=== PATIENT | male | born 1955 | race Caucasian/White ===

== ENCOUNTER 2017-09-10 16:24 | Emergency (ER) | payer MEDICARE ==
[2017-09-10] MEDS ORDERED: LORazepam INJ* 2 MG/ML 1 ML VIAL IV ONE (17:00)
[2017-09-10] MEDS ORDERED: NS 0.9% 1000 ML* 1,000 ML IV ONE (17:00)
[2017-09-10 17:41] LABS: ABS Basophils 0.1 10^3/ul (0-0.2); ABS Eosinophils 0.2 10^3/ul (0-0.6); ABS Lymphocytes 1.8 10^3/ul (1.0-4.8); ABS Monocytes 0.7 10^3/ul (0-0.8); ABS Neutrophils 4.8 10^3/ul (1.5-7.7); ABS Nucleated RBC 0 10^3/ul; Eosinophil % 2.9 % (0-6); Hematocrit 40 % (42-52); Hemoglobin 14.4 g/dl (14.0-18.0); Lymphocyte % 24.2 % (25-47); Mean Corpuscular HGB Conc 36 g/dl (31-36); Mean Corpuscular Hemoglobin 32 pg (27-31); Mean Corpuscular Volume 90 fL (80-94); Mean Platelet Volume 7.6 um3 (7.4-10.4); Nucleated Red Blood Cells % 0; Platelet Count 282 10^3/ul (150-450); Red Blood Count 4.47 10^6/ul (4.0-5.4); Red Cell Distribution Width 14 % (10.5-15); White Blood Count 7.6 10^3/ul (3.5-10.8)
[2017-09-10 17:57] LABS: EGFR Non-African American 72.8 (>60)
--- NOTE | 2017-09-10 19:03 | ED ---
Bassam Graham Jennifer, scribed for Fili Zhu MD on 09/10/17 at 1702 . Psychiatric Complaint - HPI Summary HPI Summary: The patient is a 61 year old male who was sent from PCP for having a panic attack today. The patient is shaking and has difficulty speaking. LEVEL 5 CAVEAT: HPI limited due to difficulty speaking - History Of Current Complaint Chief Complaint: EDPsychosocial Time Seen by Provider: 09/10/17 16:52 Hx Obtained From: Patient Onset/Duration: Sudden Onset Timing: Constant - Allergies/Home Medications Allergies/Adverse Reactions: Allergies Allergy/AdvReac Type Severity Reaction Status Date / Time wool Allergy Rash And Verified 09/10/17 18:15 Itching Home Medications: Home Medications Baclofen TAB* [Lioresal TAB*] 10 mg PO TID 09/10/17 [History Confirmed 09/10/17] Cholecalciferol TAB* [Vitamin D TAB*] 2,000 units PO DAILY 09/10/17 [History Confirmed 09/10/17] Cyclobenzaprine TAB* [Flexeril 10 MG TAB*] 5 mg PO QAM 09/10/17 [History Confirmed 09/10/17] Cyclobenzaprine TAB* [Flexeril 10 MG TAB*] 10 mg PO QPM 09/10/17 [History Confirmed 09/10/17] Escitalopram (NF) [Lexapro 10 mg (NF)] 10 mg PO DAILY 09/10/17 [History Confirmed 09/10/17] Fluocinonide 0.05% CREAM(NF) 1 applic TOPICAL TID 09/10/17 [History Confirmed ] Gabapentin CAP(*) [Neurontin 300 CAP(*)] 300 mg PO TID 09/10/17 [History Confirmed 09/10/17] Gemfibrozil TAB* [Lopid TAB*] 600 mg PO BID 09/10/17 [History Confirmed ] Hydrocortisone [Cortaid] 1 % TOPICAL BID 09/10/17 [History Confirmed 09/10/17] Ipratropium [place] [Ipratropium [place]] 0.03 % NA BID 09/10/17 [History Confirmed 09/10/17] Ketorolac 0.5% OPHTH (NF) 1 drop BOTH EYES DAILY 09/10/17 [History Confirmed ] Lidocaine 5% OINT* 1 applic TOPICAL ONCE 09/10/17 [History Confirmed 09/10/17] Liraglutide (NF) [Victoza (NF)] 1.2 mg SUBCUT DAILY 09/10/17 [History Confirmed 09/10/17] Lisinopril/HCTZ 10.5(NF) [Zestoretic 03/05.5(NF)] 1 tab PO DAILY 09/10/17 [ History Confirmed 09/10/17] Omeprazole CAP* [Prilosec CAP* 20 MG] 20 mg PO BID 09/10/17 [History Confirmed 09/10/17] amLODIPine TAB* [Norvasc 5 mg TAB*] 5 mg PO DAILY 09/10/17 [History Confirmed ] metFORMIN* [Glucophage 1000 MG TAB *] 1,000 mg PO BID 09/10/17 [History Confirmed 09/10/17] tiZANidine TAB* [Zanaflex TAB*] 2 mg PO BID 09/10/17 [History Confirmed 09/10/17 ] PMH/Surg Hx/FS Hx/Imm Hx Endocrine/Hematology History: Reports: Hx Diabetes Denies: Hx Anticoagulant Therapy Cardiovascular History: Reports: Hx Hypertension Denies: Hx Pacemaker/ICD GI History: Reports: Hx Gastroesophageal Reflux Disease History: Denies: Hx Renal Disease Musculoskeletal History: Reports: Hx Arthritis, Hx Back Problems, Other Musculoskeletal History - ARTHRITIS, back surgery Sensory History: Denies: Hx Hearing Aid Neurological History: Reports: Other Neuro Impairments/Disorders - PAIN CLINIC PATIENT Psychiatric History: Reports: Hx Anxiety, Hx Depression, Hx Post Traumatic Stress Disorder Denies: Hx Eating Disorder, Hx Panic Disorder - Surgical History Surgery Procedure, Year, and Place: BONE FRAGMENT REMOVED 2000-LUMBAR; APPENDECTOMY 1984; Infectious Disease History: No Infectious Disease History: Denies: Traveled Outside the [place] in Last 30 Days - Family History Known Family History: Positive: Other - etoh abuse (father) - Social History Alcohol Use: None Alcohol Amount: sober x6 years Substance Use Type: Reports: None Smoking Status (MU): Never Smoked Tobacco Type: Cigarettes Have You Smoked in the Last Year: No Review of Systems Positive: Anxious, Other - generalized shaking All Other Systems Reviewed And Are Negative: No - Comments Additional Review of Systems Comments: LEVEL 5 CAVEAT: ROS limited due to difficulty speaking Physical Exam - Summary Physical Exam Summary: General: well-appearing, no pain distress Skin: warm, color reflects adequate perfusion, dry Head: normal Eyes: EOMI, NATHAN ENT: normal Neck: supple, nontender Musculoskeletal: normal, strength/ROM intact Neurological: normal, sensory/motor intact, A&O x3 Psychological: generalized shaking that he can control his motion with. LEVEL 5 CAVEAT: Physical Exam limited due to difficulty speaking Triage Information Reviewed: Yes Vital Signs On Initial Exam: Initial Vitals Pulse Resp Pulse Ox 88 26 96 09/10/17 16:31 09/10/17 16:31 09/10/17 16:31 Vital Signs Reviewed: Yes Diagnostics - Vital Signs Vital Signs Temp Pulse Resp BP Pulse Ox 09/10/17 16:32 98.6 F 80 28 169/130 100 09/10/17 16:31 88 26 96 - Laboratory Result Diagrams: 09/10/17 17:25 09/10/17 17:25 Lab Statement: Any lab studies that have been ordered have been reviewed, and results considered in the medical decision making process. Course/Dx - Course Course Of Treatment: IMPROVED IN ED. DENIES SI/HI. I ASKED THE PATIENT IF HE WANTED A MHE; HE DECLINED. F/U PMD;RETURN IF WORSE. - Differential Dx/Clinical Impression Provider Diagnosis: Anxiety Discharge - Sign-Out/Discharge Documenting (check all that apply): Discharge - Discharge Plan Condition: Stable Disposition: HOME - Billing Disposition and Condition Condition: STABLE Disposition: HOME The documentation as recorded by the Bassam brown Jennifer accurately reflects the service I personally performed and the decisions made by me, Fili Zhu MD.
[2017-09-10 19:05] LABS: Urine Appearance Clear; Urine Blood Negative (Negative); Urine Color Yellow; Urine Ketones Negative (Negative); Urine Protein Negative (Negative); Urine Specific Gravity 1.005 (1.010-1.030); Urine Urobilinogen Negative (Negative)
[2017-09-10 21:40] VITALS: BP 128/91
--- NOTE | 2017-09-10 21:46 | ED ---
Sailaja Graham Rebecca, scribed for Sadia Jeffries MD on 09/10/17 at 2126 . Progress - Progress Note Progress Note: Pt was signed out by Dr. Zhu, pending dispo, awaiting MHE. Course/Dx - Course Course Of Treatment: Pt was signed out by Dr. Zhu, pending dispo, awaiting MHE. Upon completion of MHE and consultation with Dr. Leo, it has been determiend that the pt will be D/C. He will be D/C to home with Dx of anxiety. - Diagnoses Provider Diagnoses: Anxiety Discharge - Sign-Out/Discharge Documenting (check all that apply): Discharge - Discharge - Discharge Plan Condition: Stable Disposition: HOME Prescriptions: LORazepam [Ativan] 1 mg PO Q8H PRN #6 tablet MDD 3 PRN Reason: Anxiety Patient Education Materials: Anxiety (ED) Referrals: Tawanna Crooks MD [Primary Care Provider] - Additional Instructions: FOLLOW UP WITH YOUR DOCTOR. RETURN TO THE EMERGENCY DEPARTMENT FOR ANY WORSENING OF YOUR CONDITION; DEPRESSION, ANXIETY, THOUGHTS OF HURTING YOURSELF OR OTHERS OR QUESTIONS OR CONCERNS. The documentation as recorded by the Sailaja brown Rebecca accurately reflects the service I personally performed and the decisions made by , Sadia Jeffries MD.
== END 2017-09-10 21:30 | disposition home or self-care (01) ==
LOC: ED 16:24 → UNDOADMIN 17:12 → MEDTELE 17:12 → ED 21:30
DX: F41.9 Anxiety disorder, unspecified (principal); Z86.79 Personal history of other diseases of the circulatory system; Z87.19 Personal history of other diseases of the digestive system
CPT/HCPCS: 36415; 80053; 80307; 80320; 80329; 81003; 82550; 83605; 84443; 85025; 96361; 96374; 99284; G0480; J2060

== ENCOUNTER → 2018-08-11 16:16 | Emergency (ER) | payer MEDICARE ==
[~2018-08-11 16:16] MED LIST: Gabapentin CAP(*) 300 MG PO ONE; Tetan/Diph/Pertus SYR(Tdap)* 0.5 ML SYR(BOOSTRIX) use SYR IM ONE
--- NOTE | 2018-08-11 17:16 | UC ---
Lower Extremity/Ankle HPI - HPI Summary HPI Summary: This patient is a 62 year old M presenting to [facility] with a chief complaint of LLE from his knee to his ankle since 16:30. The patient notes his symptoms began after he was pushing his friend in a wheelchair when he lost control of the wheelchair and it hit the curb of the sidewalk. He reports that his friend in the wheelchair fell out of the chair, onto the ground and that he then fell onto the wheelchair and onto his friend. The patient rates the pain 9/10 in severity. He describes the pain as feeling like he scraped his leg. Symptoms aggravated by standing and ambulating. Patient is able to ambulate Symptoms alleviated by nothing. Patient denies neck pain, chest pain, or SOB. Patient takes 300 mg Gabapentin daily but not as directed. - History of Current Complaint Chief Complaint: EDExtremityLower Stated Complaint: LEFT LEG PAIN PER PT Hx Obtained From: Patient Onset/Duration: Sudden Onset, Lasting Minutes, Still Present Severity Initially: Moderate Severity Currently: Moderate Pain Intensity: 8 Pain Scale Used: 0-10 Numeric Aggravating Factor(s): Standing, Ambulation Alleviating Factor(s): Nothing Able to Bear Weight: Yes - only with severe pain - Allergies/Home Medications Allergies/Adverse Reactions: Allergies Allergy/AdvReac Type Severity Reaction Status Date / Time wool Allergy Rash And Verified 08/11/18 16:50 Itching PMH/Surg Hx/FS Hx/Imm Hx Other History Of: Negative For: Anticoagulant Therapy - Surgical History Surgical History: Yes Surgery Procedure, Year, and Place: BONE FRAGMENT REMOVED 2000-LUMBAR; APPENDECTOMY 1984; - Family History Known Family History: Positive: Other - etoh abuse (father) - Social History Alcohol Use: None Alcohol Amount: sober x6 years Substance Use Type: None Smoking Status (MU): Never Smoked Tobacco Type: Cigarettes Have You Smoked in the Last Year: No - Immunization History Most Recent Influenza Vaccination: unknown Most Recent Tetanus Shot: unknown Most Recent Pneumonia Vaccination: DATE UNKNOWN Physical Exam Vital Signs: Initial Vital Signs Temp 97.5 F 08/11/18 16:47 Pulse 85 08/11/18 16:47 Resp 16 08/11/18 16:47 BP 150/97 08/11/18 16:47 Pulse Ox 97 08/11/18 16:47 Diagnostics - Radiology Left Knee XR Radiology Interpretation Completed By: Radiologist Summary of Radiographic Findings: REPORT AND IMPRESSION: #. Mild anterior soft tissue swelling at the knee and circumferentially at the mid to. distal lower leg. No conspicuous foreign bodies or subcutaneous emphysema. Negative for. knee joint effusion or fracture about the knee or lower leg. Normal articular alignment at. the knee and lower leg. Dr. Bolivar has reviewed this report. Left Lower Leg XR Radiology Interpretation Completed By: Radiologist Summary of Radiographic Findings: REPORT AND IMPRESSION: #. Mild anterior soft tissue swelling at the knee and circumferentially at the mid to. distal lower leg. No conspicuous foreign bodies or subcutaneous emphysema. Negative for. knee joint effusion or fracture about the knee or lower leg. Normal articular alignment at. the knee and lower leg. Dr. Bolivar has reviewed this report. Discharge - Discharge Plan Referrals: Tawanna Crooks MD [Primary Care Provider] - - Attestation Statements Document Initiated by Scribefrem: Yes
--- NOTE | 2018-08-11 19:25 | ED ---
Lower Extremity - HPI Summary HPI Summary: This patient is a 62 year old M presenting to [facility] with a chief complaint of LLE from his knee to his ankle since 16:30. The patient notes his symptoms began after he was pushing his friend in a wheelchair when he lost control of the wheelchair and it hit the curb of the sidewalk. He reports that his friend in the wheelchair fell out of the chair, onto the ground and that he then fell onto the wheelchair and onto his friend. The patient rates the pain 9/10 in severity. He reports abrasion to his left knee. Symptoms aggravated by nothing. Symptoms alleviated by nothing. Patient denies neck pain, chest pain, or SOB. Patient takes 300 mg Gabapentin daily, but not as directed. - History of Current Complaint Chief Complaint: EDExtremityLower Stated Complaint: LEFT LEG PAIN PER PT Hx Obtained From: Patient Mechanism Of Injury: Fall From A Standing Position Onset of Pain: Immediate, Post Accident Onset/Duration: Still Present Severity Initially: Moderate Severity Currently: Moderate Pain Intensity: 8 Pain Scale Used: 0-10 Numeric Timing: Constant Location: Is Discrete @ - left lower leg (knee to ankle) Aggravating Factor(s): Standing, Ambulation, Weight Bearing Alleviating Factor(s): Nothing Able to Bear Weight: Yes - only with severe pain - Allergies/Home Medications Allergies/Adverse Reactions: Allergies Allergy/AdvReac Type Severity Reaction Status Date / Time wool Allergy Rash And Verified 08/11/18 16:50 Itching PMH/Surg Hx/FS Hx/Imm Hx Endocrine/Hematology History: Reports: Hx Diabetes Denies: Hx Anticoagulant Therapy Cardiovascular History: Reports: Hx Hypertension Denies: Hx Pacemaker/ICD GI History: Reports: Hx Gastroesophageal Reflux Disease History: Denies: Hx Renal Disease Musculoskeletal History: Reports: Hx Arthritis, Hx Back Problems, Other Musculoskeletal History - ARTHRITIS, back surgery Sensory History: Denies: Hx Hearing Aid Neurological History: Reports: Other Neuro Impairments/Disorders - PAIN CLINIC PATIENT Psychiatric History: Reports: Hx Anxiety, Hx Depression, Hx Post Traumatic Stress Disorder Denies: Hx Eating Disorder, Hx Panic Disorder, Hx of Violent Episodes Against Others - Surgical History Surgery Procedure, Year, and Place: BONE FRAGMENT REMOVED 2000-LUMBAR; APPENDECTOMY 1984; Infectious Disease History: No Infectious Disease History: Denies: Traveled Outside the [place] in Last 30 Days - Family History Known Family History: Positive: Other - etoh abuse (father) - Social History Alcohol Use: None Alcohol Amount: sober x6 years Substance Use Type: Reports: None Smoking Status (MU): Never Smoked Tobacco Type: Cigarettes Have You Smoked in the Last Year: No Review of Systems Negative: Fever Negative: Shortness Of Breath Negative: Vomiting Musculoskeletal: Negative - negtive neck pain, negative back pain, Other - left lower leg pain Skin: Other - abrasion to left knee All Other Systems Reviewed And Are Negative: Yes Physical Exam - Summary Physical Exam Summary: Appearance: Ill-appearing, moderate pain distress, well-nourished Skin: Warm, color reflects adequate perfusion, Diaphoretic, Abrasion on lateral aspect of patella over the fibula Head: Normal Head/Face inspection, atraumatic, No hematoma on scalp, No foster signs Eyes: Conjunctiva clear ENT: Normal inspection Neck: Supple, no nodes, no JVD, No posterior neck tenderness Chest: No bruising or rib tenderness Respiratory: Lungs clear, normal breath sounds, no respiratory distress Cardio: RRR, No murmur, pulses normal, brisk capillary refill Abdomen: Soft, nontender Bowel sounds: Present Musculoskeletal: Strength Intact/ROM intact, no calf tenderness, no edema. Psychological: Normal Neuro: Alert, muscle tone normal, no focal deficit Triage Information Reviewed: Yes Vital Signs On Initial Exam: Initial Vitals Temp Pulse Resp BP Pulse Ox 97.5 F 85 16 150/97 97 08/11/18 16:47 08/11/18 16:47 08/11/18 16:47 08/11/18 16:47 08/11/18 16:47 Vital Signs Reviewed: Yes Diagnostics - Vital Signs Vital Signs Temp Pulse Resp BP Pulse Ox 08/11/18 16:47 97.5 F 85 16 150/97 97 - Laboratory Lab Statement: Any lab studies that have been ordered have been reviewed, and results considered in the medical decision making process. - Radiology Left Knee XR Radiology Interpretation Completed By: Radiologist Summary of Radiographic Findings: REPORT AND IMPRESSION: #. Mild anterior soft tissue swelling at the knee and circumferentially at the mid to. distal lower leg. No conspicuous foreign bodies or subcutaneous emphysema. Negative for. knee joint effusion or fracture about the knee or lower leg. Normal articular alignment at. the knee and lower leg. Dr. Bolivar has reviewed this report. Left Lower Leg XR Radiology Interpretation Completed By: Radiologist Summary of Radiographic Findings: REPORT AND IMPRESSION: #. Mild anterior soft tissue swelling at the knee and circumferentially at the mid to. distal lower leg. No conspicuous foreign bodies or subcutaneous emphysema. Negative for. knee joint effusion or fracture about the knee or lower leg. Normal articular alignment at. the knee and lower leg. Dr. Bolivar has reviewed this report. Re-Evaluation - Re-Evaluation 1st re-eval Re-Evaluation Time: 17:24 Change: Unchanged Comment: Reviewed imaging results with patient 2nd re-eval Re-Evaluation Time: 19:34 Change: Improved Comment: Reviewed discharge instructions with patient. Patient is able to bear weight and asks for an BEATRICE bandage only. Lower Extremity Course/Dx - Course Course Of Treatment: This patient is a 62 year old M with a chief complaint of LLE from his knee to his ankle since 16:30. The patient notes his symptoms began after he was pushing his friend in a wheelchair when he lost control of the wheelchair and it hit the curb of the sidewalk. He reports that his friend in the wheelchair fell out of the chair, onto the ground and that he then fell onto the wheelchair and onto his friend. Patient takes 300 mg Gabapentin daily, but not as directed. Left leg and left knee XRs reveal, per radiologist, Mild anterior soft tissue swelling at the knee and circumferentially at the mid to distal lower leg. No conspicuous foreign bodies or subcutaneous emphysema. Negative for knee joint effusion or fracture about the knee or lower leg. Normal articular alignment at the knee and lower leg. ED physician has reviewed this report. In the ED course the patient was given Gabapentin and Boostrix. Patient will be discharged home with follow up from PCP. The patient is agreeable with this plan. Dx contusion and left knee pain. - Diagnoses Provider Diagnoses: Left knee pain, Contusion Discharge - Sign-Out/Discharge Documenting (check all that apply): Patient Departure - discharge home Patient Received Moderate/Deep Sedation with Procedure: No - Discharge Plan Condition: Stable Disposition: HOME Patient Education Materials: Knee Pain (ED), Leg Pain (ED) Referrals: Esequiel Ortega MD [Medical Doctor] - 2 Days Tawanna Crooks MD [Primary Care Provider] - 2 Days Additional Instructions: You were given your tetanus update today. Follow up with your primary care physician in 1-2 days, the orthopedist if needed. Continue your gabapentin for pain. Return to the emergency department with any new or worsening symptoms. - Attestation Statements Document Initiated by Scribe: Yes Documenting Scribe: Mariana Manrique Provider For Whom Scribe is Documenting (Include Credential): Teri Bolivar Scribe Attestation: IMariana, scribed for Teri Bolivar on 08/11/18 at 1945.
[2018-08-11 19:48] VITALS: BP 112/75
== END | disposition home or self-care (01) ==
LOC: ED 16:16
DX: S80.02XA Contusion of left knee, initial encounter (principal); M79.605 Pain in left leg; S80.212A Abrasion, left knee, initial encounter; W19.XXXA Unspecified fall, initial encounter; Y92.9 Unspecified place or not applicable; I10 Essential (primary) hypertension; E11.9 Type 2 diabetes mellitus without complications
CPT/HCPCS: 90471; 90715; 99282; A9270-GY

== ENCOUNTER 2018-10-24 19:31 | Observation (INO) | payer MEDICARE ==
--- NOTE | 2018-10-24 20:59 | ED ---
HPI Diabetic - HPI Summary HPI Summary: Patient is a 62 y/o M presenting to ED with complaints of dizziness. PMHx of diabetes, type 2, patient has not had insulin for the past three months as he has not been able to afford his insulin. He states that his glucose meter read "too high - dangerous", today, 10/24/18, at around 1900. He notes that today was the first time he checked his glucose in three months, which he did due to his dizziness. Dizziness is characterized as room-spinning. No N/V, chest pain, SOB , fever, dysuria are reported. PSHx of appendectomy, back surgery. PCP is Dr. Crooks. Patient is on lisinopril, 10 mg, metformin 1000 mg daily, and Victoza. FMHx of diabetes. Patient's friend, Ethel, is present in the room. On triage, pain is denied, nothing is noted to aggravate/alleviate Sx. Home medications and allergies are reviewed. Pulse 71, o2 95, BP 156/95. Allergies Allergy/AdvReac Type Severity Reaction Status Date / Time wool Allergy Rash And Verified 10/24/18 20:00 Itching - History Of Current Complaint Chief Complaint: EDDiabeticProb Time Seen by Provider: 10/24/18 20:50 Hx Obtained From: Patient Onset/Duration: Lasting Hours - checked glucose today, 10/24/18, at 1900 due to dizziness, Still Present Timing: Hours - checked glucose today, 10/24/18, at 1900 due to dizziness Severity Currently: None - pain denied Character: Alert Aggravating: Other - patient states he cannot afford insulin Alleviating: Nothing Associated Signs & Symptoms: Negative - Allergies/Home Medications Allergies/Adverse Reactions: Allergies Allergy/AdvReac Type Severity Reaction Status Date / Time wool Allergy Rash And Verified 10/24/18 20:00 Itching PMH/Surg Hx/FS Hx/Imm Hx Endocrine/Hematology History: Reports: Hx Diabetes Denies: Hx Anticoagulant Therapy Cardiovascular History: Reports: Hx Hypertension Denies: Hx Pacemaker/ICD GI History: Reports: Hx Gastroesophageal Reflux Disease History: Denies: Hx Renal Disease Musculoskeletal History: Reports: Hx Arthritis, Hx Back Problems, Other Musculoskeletal History - ARTHRITIS, back surgery Sensory History: Denies: Hx Hearing Aid Neurological History: Reports: Other Neuro Impairments/Disorders - PAIN CLINIC PATIENT Psychiatric History: Reports: Hx Anxiety, Hx Depression, Hx Post Traumatic Stress Disorder Denies: Hx Eating Disorder, Hx Panic Disorder, Hx of Violent Episodes Against Others - Surgical History Surgery Procedure, Year, and Place: BONE FRAGMENT REMOVED 2000-LUMBAR; APPENDECTOMY 1984; - Immunization History Date of Tetanus Vaccine: unknown Infectious Disease History: No Infectious Disease History: Denies: Traveled Outside the [place] in Last 30 Days - Family History Known Family History: Positive: Diabetes, Other - etoh abuse (father) - Social History Alcohol Use: None Alcohol Amount: sober x6 years Substance Use Type: Reports: None Smoking Status (MU): Never Smoked Tobacco Type: Cigarettes Have You Smoked in the Last Year: No Review of Systems Negative: Fever Negative: Chest Pain Negative: Shortness Of Breath Negative: Vomiting, Nausea Negative: dysuria Neurological: Other - POSITIVE - DIZZINESS All Other Systems Reviewed And Are Negative: Yes Physical Exam - Summary Physical Exam Summary: Appearance: Well-appearing, no pain distress, well-nourished Skin: Warm, color reflects adequate perfusion, dry Head: Normal Head/Face inspection, atraumatic Eyes: Conjunctiva clear ENT: Normal inspection Neck: Supple, no nodes, no JVD Respiratory: Lungs clear, normal breath sounds, no respiratory distress Cardio: RRR, No murmur, pulses normal, brisk capillary refill Abdomen: Soft, nontender Bowel sounds: Present Musculoskeletal: Strength Intact/ROM intact, no calf tenderness, no edema. Psychological: Normal Neuro: Alert, muscle tone normal, no focal deficit Triage Information Reviewed: Yes Vital Signs On Initial Exam: Initial Vitals Temp Pulse Resp BP Pulse Ox 97.6 F 72 16 142/86 96 10/24/18 19:58 10/24/18 19:58 10/24/18 19:58 10/24/18 19:58 10/24/18 19:58 Vital Signs Reviewed: Yes Diagnostics - Vital Signs Vital Signs Temp Pulse Resp BP Pulse Ox 10/24/18 19:58 97.6 F 72 16 142/86 96 - Laboratory Lab Statement: Any lab studies that have been ordered have been reviewed, and results considered in the medical decision making process. - Radiology chest x-ray Radiology Interpretation Completed By: ED Physician Summary of Radiographic Findings: CXR showed no acute disease, pending official report. - EKG 2103 Cardiac Rate: NL - rate of 65 bpm EKG Rhythm: Sinus Rhythm ST Segment: Non-Specific Ectopy: None Summary of EKG Findings: EKG at 2103 showed sinus rhythm with rate of 65 BPM, nml AV/IV CT, nml QTc, and nml axis. No acute changes. No ectopy, no STEMI, non- specific ST. Dr. Ojeda has reviewed and interpreted this EKG. Re-Evaluation - Re-Evaluation First Eval Re-Evaluation Time: 21:56 Comment: Charge Nurse Rosi reports glucose of 650. Second Eval Re-Evaluation Time: 22:12 Comment: Patient is agreeable with admission. Diabetic Course/Dx - Course Course Of Treatment: Patient is a 62 y/o M presenting to ED with complaints of dizziness. PMHx of diabetes, type 2, patient has not had insulin for the past three months as he has not been able to afford his insulin. He states that his glucose meter read "too high - dangerous", today, 10/24/18, at around 1900. He notes that today was the first time he checked his glucose in three months, which he did due to his dizziness. Dizziness is characterized as room-spinning. No N/V, chest pain, SOB, fever, dysuria are reported. PSHx of appendectomy, back surgery. PCP is Dr. Crooks. Patient is on lisinopril, 10 mg, metformin 1000 mg daily, and Victoza. FMHx of diabetes. Physical exam is unremarkable. EKG at 2103 showed sinus rhythm with rate of 65 BPM, nml AV/IV CT, nml QTc, and nml axis. No acute changes. No ectopy, no STEMI, non-specific ST. Dr. Ojeda has reviewed and interpreted this EKG. CXR showed no acute process. POC glucose was 444. Labs showed MCH 32, sodium 128, chloride 93, glucose 650, alk phos 255, total protein 6.3. Blood gas showed VBG o2 sat of 52.9. Patient's case was discussed with Dr. Gimenez, Dr. Gimenez accepts for admission. Patient is agreeable with admission. - Diagnoses Provider Diagnoses: Type 2 diabetes mellitus with hyperglycemia - Physician Notifications Discussed Care Of Patient With: Christina Gimenez Time Discussed With Above Provider: 22:01 Instructed by Provider To: Other - 2200 - Patient's case was discussed with Dr. Gimenez, Dr. Gimenez accepts for admission. - Critical Care Time Critical Care Time: 30-74 min - 30 minutes CCT Discharge - Sign-Out/Discharge Documenting (check all that apply): Patient Departure - admit - Discharge Plan Condition: Stable Disposition: ADMITTED TO [facility] Referrals: Tawanna Crooks MD [Primary Care Provider] - - Attestation Statements Document Initiated by Scribe: Yes Documenting Scribe: MARYANNE ISSA Provider For Whom Scribe is Documenting (Include Credential): YENNIFER OJEDA MD Scribe Attestation: MARYANNE Graham, scribed for YENNIFER OJEDA MD on 10/24/18 at 2231. Status of Scribe Document: Ready
[2018-10-24] MEDS ORDERED: NS 0.9% 1000 ML** 2,000 ML IV SCH (21:15)
[2018-10-24 21:36] LABS: ABS Basophils 0.1 10^3/ul (0-0.2); ABS Eosinophils 0.2 10^3/ul (0-0.6); ABS Lymphocytes 1.6 10^3/ul (1.0-4.8); ABS Monocytes 0.5 10^3/ul (0-0.8); ABS Neutrophils 2.7 10^3/ul (1.5-7.7); Eosinophil % 3.2 %; Hematocrit 43 % (42-52); Hemoglobin 14.9 g/dL (14.0-18.0); Lymphocyte % 31.8 %; Mean Corpuscular HGB Conc 35 g/dL (31-36); Mean Corpuscular Hemoglobin 32 pg (27-31); Mean Corpuscular Volume 91 fL (80-94); Mean Platelet Volume 8.2 fL (7.4-10.4); Nucleated Red Blood Cells % 0.1; Platelet Count 221 10^3/uL (150-450); Red Cell Distribution Width 13 % (10.5-15); White Blood Count 5.1 10^3/uL (3.5-10.8)
[2018-10-24 21:42] LABS: INR 0.94 (0.82-1.09)
[2018-10-24 21:54] LABS: Albumin 4.1 g/dL (3.2-5.2); Albumin/Globulin Ratio 1.9 (1-3); BUN/Creatinine Ratio 16.5 (8-20); C Reactive Protein 1.84 mg/L (<8.01); Calcium 9.4 mg/dL (8.6-10.3); EGFR African American 78.2 (>60); EGFR Non-African American 64.7 (>60); Globulin 2.2 g/dL (2-4); Potassium 4.6 mmol/L (3.5-5.0); Total Bilirubin 0.3 mg/dL (0.2-1.0); Total Protein 6.3 g/dL (6.4-8.9)
[2018-10-24] MEDS ORDERED: Ondansetron INJ* 2 MG/ML VIAL IV PRN (22:55)
[2018-10-24] MEDS ORDERED: Al Hydrox/Mg Hydrox/Simet LIQ* 30 ML UDC PO PRN (22:55)
[2018-10-24] MEDS ORDERED: Dextrose 50% Syringe 50 ML* 25 GM/50 ML SYRINGE IV PUSH PRN ×3 (22:58→23:00)
[2018-10-24] MEDS ORDERED: Insulin LISPRO* 1 UNITS UNIT SUBCUT ONE (23:00)
[2018-10-24 23:20] LABS: Urine Appearance Clear; Urine Bilirubin Negative (Negative); Urine Blood Negative (Negative); Urine Color Straw; Urine Glucose 3+(>=500 mg/dL) (Negative); Urine Ketones Trace (Negative); Urine Nitrite Negative (Negative); Urine Protein Negative (Negative); Urine Specific Gravity 1.029 (1.010-1.030); Urine Urobilinogen Negative (Negative)
[2018-10-24] MEDS: Insulin LISPRO* 1 UNITS UNIT SUBCUT SCH (23:32)
[2018-10-24] MEDS ORDERED: Lactated Ringers 1000 ML Bag* 1,000 ML IV SCH (23:45)
[2018-10-25 00:03] LABS: TSH (Thyroid Stimulating Horm) 1.56 mcIU/mL (0.34-5.60)
[2018-10-25] MEDS: Lactated Ringers 1000 ML Bag* 1,000 ML IV SCH ×2 (00:52→08:12)
[2018-10-25] MEDS: Insulin GLARGINE(*) 1 UNITS UNIT SUBCUT SCH ×2 (00:53→22:22)
--- NOTE | 2018-10-25 01:09 | HP ---
HISTORY AND PHYSICAL: DATE OF ADMISSION: 10/24/18 TIME OF EVALUATION: 2200 PRIMARY CARE PHYSICIAN: Tawanna Crooks MD CHIEF COMPLAINT: Elevated glucose. HISTORY OF PRESENT ILLNESS: This is a 62-year-old male with a past medical history of diabetes, hypertension, who presented to the emergency room after feeling dizzy, checking his glucose in the monitor reading elevated. The patient states he has not been able to afford his insulin or Victoza for the past 3 months, stating it is a $308 co-pay, so he has been off his medications for the past 3 months. He states he went to see his PCP for this, but they could not do anything about it. He has been dizzy lately. He checked his monitor and it was read high. He has had increased thirst, polyuria, and dizzy. No falls. No URI symptoms. No fevers or chills. No chest pain or shortness of breath. No nausea or vomiting. He has had diarrhea off and on. No abdominal pain. Otherwise, review of systems is negative. In the emergency room, the patient had labs and imaging. He was found to have a glucose of 650 and referred to the hospitalist service for further evaluation. PAST MEDICAL HISTORY: 1. Diabetes. 2. Anxiety. 3. Chronic back pain. 4. Hypertension. 5. Hyperlipidemia. 6. Seasonal allergies 7. Diabetic neuropathy MEDICATIONS: The patient states he takes metformin 1000 mg twice a day, otherwise he does not know what his medications are. ALLERGIES: Wool. FAMILY HISTORY: His mother from diabetes, unclear age. Father is unknown. 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 He quit smoking in 1984. He smoked 1-1/2 pack per day for 25 years. He quit heavy alcohol use 15 years ago. No illicit drugs. His son, Rasta, was his healthcare proxy. Code status is full code. REVIEW OF SYSTEMS: Fourteen point review of systems as mentioned in the HPI, otherwise negative. PHYSICAL EXAMINATION GENERAL: In no acute distress, resting comfortably. VITAL SIGNS: Temp 97.6, pulse rate 60, respiratory rate 16, oxygen saturation is 96% on room air, and blood pressure 160/97. HEENT: Head normocephalic. Pupils equal, round, and reactive. Anicteric. Oropharynx: Mucous membranes are moist. NECK: Supple. No lymphadenopathy. RESPIRATORY: Diminished breath sounds. No wheezing, rhonchi, or rales. CARDIAC: Regular rate and rhythm. Systolic murmur, most prominent at the left sternal base. ABDOMEN: Soft, nontender, nondistended. EXTREMITIES: No clubbing, cyanosis, or edema. +1 DP. NEUROLOGIC: Alert and oriented x3. No gross focal neurologic deficits. DIAGNOSTIC STUDIES/LAB DATA: White count 5.1, hemoglobin 14.9, hematocrit 43, platelets 221. INR 0.94 and pH is 7.37. Sodium 128, potassium 4.6, chloride 93 , bicarb 27, BUN 19, creatinine 1.15, glucose 650, hemoglobin A1c is 14.5. Alk phos is 255, CRP 1.84. EKG shows normal sinus rhythm. ASSESSMENT AND PLAN: This is a 62-year-old male with a past medical history of diabetes, who presents to the emergency room with elevated glucose in the setting not being able to afford his antihyperglycemic agents for the past 3 months. 1. Hyperglycemia. The patient with isolated hyperglycemia. No evidence of HHS. His hemoglobin A1c is 14.5. Likely, he is going to require insulin. He also has a neuropathy. Plan: We will continue fluids and give him another liter of fluid, start him on Lantus 20 units and lispro sliding scale and try to bring down his glucose. No indication for insulin drip at this time, but if this becomes an issue, we may need to put him on insulin drip. I will recommend social work consult to help with affording medications and consider Endocrinology consult as well. We will check glucose q.4 hours for now. 2. Chronic medical problems. There is a med rec in the system, however, the patient states he only takes a few medications that he is able to afford. I recommend follow up with his pharmacy prior to initiating all his med reconciliation medications. I do not think that he is taking all of these medications. 3. FEN. Diabetic diet. 4. DVT prophylaxis. The patient scores high risk. We will place him on heparin subcu t.i.d. 5. Code status. Full code. PATIENT TIME: Greater than 30 minutes spent doing the history and physical, more than half the time spent in direct patient contact. [id number]/[facility] #: [id number] LONA
[2018-10-25] MEDS: Gabapentin CAP(*) 300 MG PO SCH ×4 (03:02→20:44)
[2018-10-25] MEDS: Heparin VIAL(*) 5000 UNITS/ML VIAL (FIVE THOUSAND) SUBCUT SCH ×3 (04:42→22:21)
[2018-10-25 06:47] LABS: ABS Eosinophils 0.2 10^3/ul (0-0.6); ABS Lymphocytes 1.9 10^3/ul (1.0-4.8); ABS Monocytes 0.5 10^3/ul (0-0.8); ABS Neutrophils 2.3 10^3/ul (1.5-7.7); Eosinophil % 4.8 %; Hematocrit 38 % (42-52); Hemoglobin 13.5 g/dL (14.0-18.0); Lymphocyte % 38.3 %; Mean Corpuscular HGB Conc 36 g/dL (31-36); Mean Corpuscular Hemoglobin 32 pg (27-31); Mean Corpuscular Volume 89 fL (80-94); Mean Platelet Volume 8.1 fL (7.4-10.4); Nucleated Red Blood Cells % 0.1; Platelet Count 184 10^3/uL (150-450); Red Blood Count 4.25 10^6 /uL (4.18-5.48); Red Cell Distribution Width 13 % (10.5-15); White Blood Count 5.1 10^3/uL (3.5-10.8)
[2018-10-25 07:08] LABS: BUN/Creatinine Ratio 18.6 (8-20); Calcium 8.5 mg/dL (8.6-10.3); EGFR African American 109.4 (>60); EGFR Non-African American 90.4 (>60); Potassium 3.6 mmol/L (3.5-5.0)
[2018-10-25] MEDS: Acetaminophen TAB* 325 MG PO PRN ×2 (08:05→22:25)
[2018-10-25] MEDS: Insulin LISPRO* 1 UNITS UNIT SUBCUT SCH ×7 (08:06→17:38)
--- NOTE | 2018-10-25 10:09 | PN ---
Subjective Date of Service: 10/25/18 Interval History: Mr. Banuelos is feeling ok this morning. He reports a dull headache. He believes the nurse gave him Tylenol this morning, but it has not had any effect. He does have some mild epigastric discomfort which he gets occasionally. Appetite is good and pain is not worse with eating. He denies CP, SOB, N/V. He has not been able to afford his insulin at home but has been working with his PCP to try to find something more affordable. Does have BLE neuropathy up to his knees. This has gotten worse in the past 4 months - previously was just his feet. He does wear shoes/slippers at all times but does not check his feet regularly. Nursing reports approx 5 min of bradycardia in the 40s this morning while patient was sleeping. When the nurse woke him, HR increased to the 50s. He was asymptomatic during this time. Tele: Sinus allyn in the 50s to NSR in the 60s. Family History: Unchanged from Admission Social History: Unchanged from Admission Past Medical History: Unchanged from Admission Objective Active Medications: Acetaminophen (Tylenol Tab*) 650 mg PO Q4H PRN FEVER/PAIN Al Hydrox/Mg Hydrox/Simethicone (Maalox Plus*) 30 ml PO Q6H PRN INDIGESTION Amlodipine Besylate (Norvasc Tab*) 5 mg PO DAILY AYE Baclofen (Lioresal Tab*) 10 mg PO TID AYE Cholecalciferol (Vitamin D Tab*) 2,000 units PO DAILY AYE Cyclobenzaprine HCl (Flexeril Tab*) 5 mg PO QAM AYE Cyclobenzaprine HCl (Flexeril Tab*) 10 mg PO QPM AYE Dextrose (D50w Syringe 50 Ml*) 12.5 gm IV PUSH .FOR FS < 60 - SS PRN FS < 60 Escitalopram Oxalate (Lexapro *) 10 mg PO DAILY AYE Gabapentin (Neurontin Cap(*)) 300 mg PO TID AYE Gemfibrozil (Lopid Tab*) 600 mg PO BID AYE Lisinopril/HCTZ (Zestoretic 03/05.5(Nf)) 1 tab PO DAILY AYE; Protocol Heparin Sodium (Porcine) (Heparin Vial(*)) 5,000 units SUBCUT Q8HR AYE Insulin Glargine (Lantus(*)) 20 units SUBCUT Q24H AYE Insulin Human Lispro (Humalog*) 0 units SUBCUT AC AYE; Protocol Insulin Human Lispro (Humalog*) 0 units SUBCUT AC AYE; Protocol Metformin HCl (Glucophage*) 1,000 mg PO BID AYE Omeprazole (Prilosec Cap* (Nf)) 20 mg PO BID AYE Ondansetron HCl (Zofran Inj*) 4 mg IV Q4H PRN NAUSEA/VOMITING Vital Signs - 8 hr 10/25/18 10/25/18 10/25/18 03:02 03:16 04:42 Temperature 97.8 F Pulse Rate 57 Respiratory 18 16 16 Rate Blood Pressure 147/79 (mmHg) O2 Sat by Pulse 97 Oximetry Oxygen Devices in Use Now: None Appearance: Middle-aged male sitting in bed in NAD Eyes: No Scleral Icterus Ears/Nose/Mouth/Throat: Mucous Membranes Moist Neck: NL Appearance and Movements; NL JVP, Trachea Midline Respiratory: Symmetrical Chest Expansion and Respiratory Effort, Clear to Auscultation Cardiovascular: NL Sounds; No Murmurs; No JVD, RRR Abdominal: - - Epigastric tender to palpation, otherwise SNT; Normoactive BS Extremities: No Edema Skin: No Rash or Ulcers Neurological: Alert and Oriented x 3 Lines/Tubes/Other Access: Clean, Dry and Intact Peripheral IV Nutrition: Taking PO's Result Diagrams: 10/25/18 06:23 10/25/18 06:23 Assess/Plan/Problems-Billing Assessment: Mr. Banuelos is a 62 yo M with PMH of DM, HTN, HLD, neuropathy, and anxiety; who presented to the ED with c/o hyperglycemia and was admitted for further management of glucose. - Patient Problems (1) Type II diabetes mellitus Comment: - Hyperglycemia up in the 600s on admission, but no evidence of HHNS - Has not been able to afford insulin for the last few months - A1c 14.5% - Appreciate Endocrinology consult - Will need to ensure medications prescribed at d/c are affordable so that he is compliant going forward - Continue Lantus, Lispro SS, metformin (2) HTN (hypertension) Code(s): I10 - ESSENTIAL (PRIMARY) HYPERTENSION Comment: - Normotensive, SBP 120s - Continue amlodipine, lisinopril (3) Diabetic neuropathy Code(s): E11.40 - TYPE 2 DIABETES MELLITUS WITH DIABETIC NEUROPATHY, UNSP Comment: - Continue gabapentin (4) Hyperlipidemia Code(s): E78.5 - HYPERLIPIDEMIA, UNSPECIFIED Comment: - Continue gemfibrozil (5) Anxiety and depression Code(s): F41.9 - ANXIETY DISORDER, UNSPECIFIED; F32.9 - MAJOR DEPRESSIVE DISORDER, SINGLE EPISODE, UNSPECIFIED Comment: - Continue escitalopram (6) Chronic back pain Code(s): M54.9 - DORSALGIA, UNSPECIFIED; G89.29 - OTHER CHRONIC PAIN Comment: - Continue baclofen, Flexeril (7) GERD (gastroesophageal reflux disease) Code(s): K21.9 - GASTRO-ESOPHAGEAL REFLUX DISEASE WITHOUT ESOPHAGITIS Comment : - Continue pantoprazole (8) DVT prophylaxis Comment: - Heparin SQ (9) Full code status Code(s): Z78.9 - OTHER SPECIFIED HEALTH STATUS Comment: Status and Disposition: Observation. Anticipate d/c home when medically stable. Attending: Kary Mercedes
[2018-10-25] MEDS: Hydrochlorothiazide TAB* 25 MG PO SCH (11:32)
[2018-10-25] MEDS: Cholecalciferol TAB* 1000 UNITS PO SCH (11:33)
[2018-10-25] MEDS: amLODIPine TAB* 5 MG PO SCH (11:33)
[2018-10-25] MEDS: metFORMIN* 1,000 MG TAB PO SCH ×2 (11:33→20:44)
[2018-10-25] MEDS: Cyclobenzaprine TAB* 10 MG PO SCH ×2 (11:34→17:12)
[2018-10-25] MEDS: Lisinopril TAB* 10 MG PO SCH (11:35)
[2018-10-25] MEDS: Escitalopram * 10 MG TAB PO SCH (11:36)
[2018-10-25] MEDS: Baclofen TAB* 10 MG PO SCH ×2 (13:22→20:44)
[2018-10-25] MEDS: Pantoprazole TAB * 40 MG TAB PO SCH (20:44)
[2018-10-25] MEDS: Gemfibrozil TAB* 600 MG PO SCH (22:21)
[2018-10-26] MEDS: Heparin VIAL(*) 5000 UNITS/ML VIAL (FIVE THOUSAND) SUBCUT SCH ×3 (05:59→21:18)
[2018-10-26 07:03] LABS: BUN/Creatinine Ratio 11.9 (8-20); Calcium 9.3 mg/dL (8.6-10.3); EGFR African American 90.9 (>60); EGFR Non-African American 75.1 (>60)
[2018-10-26] MEDS: Hydrochlorothiazide TAB* 25 MG PO SCH (09:31)
[2018-10-26] MEDS: Cholecalciferol TAB* 1000 UNITS PO SCH (09:33)
[2018-10-26] MEDS: Cyclobenzaprine TAB* 10 MG PO SCH ×2 (09:34→17:27)
[2018-10-26] MEDS: Gemfibrozil TAB* 600 MG PO SCH ×2 (09:35→22:20)
[2018-10-26] MEDS: Gabapentin CAP(*) 300 MG PO SCH ×3 (09:35→21:17)
[2018-10-26] MEDS: Baclofen TAB* 10 MG PO SCH ×3 (09:35→21:17)
[2018-10-26] MEDS: amLODIPine TAB* 5 MG PO SCH (09:36)
[2018-10-26] MEDS: metFORMIN* 1,000 MG TAB PO SCH ×2 (09:36→21:17)
[2018-10-26] MEDS: Lisinopril TAB* 10 MG PO SCH (09:36)
[2018-10-26] MEDS: Escitalopram * 10 MG TAB PO SCH (09:37)
[2018-10-26] MEDS: Insulin LISPRO* 1 UNITS UNIT SUBCUT SCH ×4 (09:37→13:41)
[2018-10-26] MEDS: Pantoprazole TAB * 40 MG TAB PO SCH ×2 (09:37→21:17)
--- NOTE | 2018-10-26 13:39 | CONSULT ---
Consult Consult: [facility] Inpatient Consult Note Date of Consult: 10/26/18 Reason for Consult: hyperglycemia Reason for Admission: severe hyperglycemia ASSESSMENT: 62 yo M with history of T2DM for >15 years, now admitted for critical hyperglycemia without DKA. He has been unable to achieve A1c <10% since 2014 despite basal insulin + metformin + Victoza. Unfortunately, he has been unable to afford most of these medications and has discontinued the injectable medications. Based on glucose results during this admission, his insulin requirement is approximately 40-50 units/day. This can be given as a low -cost R/N insulin regimen, as below. He is familiar with such a regimen, having used this in the past. We discussed insulin safety and injections. PLAN: - start Novolin R 8 units with meals - use only with food - avoid if BG<80 - start Novolin N 12 units twice daily - may use without food - may be mixed with above - resume metformin 1000mg BID - check fingerstick BG BID - follow-up with PCP (Daksha) in 1-2 weeks - follow-up with [facility] endocrinology in 2 weeks SUBJECTIVE: History of Present Illness: 62 yo with long-standing diabetes, now admitted for critical hyperglycemia. He has been in usual state of health recently. He does not check BG regularly, but has been aware that his BG is high. He was told that his copay for Lantus + Victoza was >$300/month, so he stopped both several months ago. No recent A1c on file, but current A1c >14%. He denies recent illness. No specific complaints. Polyuria has resolved. Past Medical History: 1. Diabetes. 2. Anxiety. 3. Chronic back pain. 4. Hypertension. 5. Hyperlipidemia. 6. Seasonal allergies Medications Prior to Admission: Baclofen TAB* [Lioresal TAB*] 10 mg PO TID 09/10/17 [History Confirmed 10/24/18] Cholecalciferol TAB* [Vitamin D TAB*] 2,000 units PO DAILY 09/10/17 [History Confirmed 10/24/18] Cyclobenzaprine TAB* [Flexeril 10 MG TAB*] 5 mg PO QAM 09/10/17 [History Confirmed 10/24/18] Cyclobenzaprine TAB* [Flexeril 10 MG TAB*] 10 mg PO QPM 09/10/17 [History Confirmed 10/24/18] Escitalopram * [Lexapro 10 mg (NF)] 10 mg PO DAILY 09/10/17 [History Confirmed 10/24/18] Fluocinonide 0.05% CREAM(NF) 1 applic TOPICAL TID 09/10/17 [History Confirmed ] Gabapentin CAP(*) [Neurontin 300 CAP(*)] 300 mg PO TID 09/10/17 [History Confirmed 10/24/18] Gemfibrozil TAB* [Lopid TAB*] 600 mg PO BID 09/10/17 [History Confirmed ] Hydrocortisone [Cortaid] 1 % TOPICAL BID 09/10/17 [History Confirmed 10/24/18] Ipratropium Br (Nf)0.03% Nasal [Ipratropium Wylie] 0.03 % NA BID 09/10/17 [ History Confirmed 10/24/18] Ketorolac 0.5% OPHTH (NF) 1 drop BOTH EYES DAILY 09/10/17 [History Confirmed 07/13] LORazepam [Ativan] 1 mg PO Q8H PRN #6 tablet MDD 3 09/10/17 [Rx Confirmed ] Lidocaine 5% OINT* 1 applic TOPICAL ONCE 09/10/17 [History Confirmed 10/24/18] Liraglutide (NF) [Victoza (NF)] 1.2 mg SUBCUT DAILY 09/10/17 [History Confirmed 10/24/18] Lisinopril/HCTZ 10/12.5(NF) [Zestoretic 10/12.5(NF)] 1 tab PO DAILY 09/10/17 [ History Confirmed 10/24/18] Omeprazole CAP (NF) [Prilosec CAP* 20 MG] 20 mg PO BID 09/10/17 [History Confirmed 10/24/18] amLODIPine TAB* [Norvasc 5 mg TAB*] 5 mg PO DAILY 09/10/17 [History Confirmed ] metFORMIN* [Glucophage 1000 MG TAB *] 1,000 mg PO BID 09/10/17 [History Confirmed 10/24/18] tiZANidine TAB* [Zanaflex TAB*] 2 mg PO BID 09/10/17 [History Confirmed 10/24/18 ] Inpatient Medications: Acetaminophen (Tylenol Tab*) 650 mg PO Q4H PRN PRN Reason: FEVER/PAIN Last Admin: 10/25/18 22:25 Dose: 650 mg Al Hydrox/Mg Hydrox/Simethicone (Maalox Plus*) 30 ml PO Q6H PRN PRN Reason: INDIGESTION Amlodipine Besylate (Norvasc Tab*) 5 mg PO DAILY [facility] Last Admin: 10/26/18 09:36 Dose: 5 mg Baclofen (Lioresal Tab*) 10 mg PO TID [facility] Last Admin: 10/26/18 13:40 Dose: 10 mg Cholecalciferol (Vitamin D Tab*) 2,000 units PO DAILY [facility] Last Admin: 10/26/18 09:33 Dose: 2,000 units Cyclobenzaprine HCl (Flexeril Tab*) 5 mg PO QAM [facility] Last Admin: 10/26/18 09:34 Dose: 5 mg Cyclobenzaprine HCl (Flexeril Tab*) 10 mg PO QPM [facility] Last Admin: 10/25/18 17:12 Dose: 10 mg Dextrose (D50w Syringe 50 Ml*) 12.5 gm IV PUSH .FOR FS < 60 - SS PRN PRN Reason: FS < 60 Escitalopram Oxalate (Lexapro *) 10 mg PO DAILY [facility] Last Admin: 10/26/18 09:37 Dose: 10 mg Gabapentin (Neurontin Cap(*)) 300 mg PO TID [facility] Last Admin: 10/26/18 13:40 Dose: 300 mg Gemfibrozil (Lopid Tab*) 600 mg PO BID [facility] Last Admin: 10/26/18 09:35 Dose: 600 mg Heparin Sodium (Porcine) (Heparin Vial(*)) 5,000 units SUBCUT Q8HR [facility] Last Admin: 10/26/18 13:39 Dose: 5,000 units Hydrochlorothiazide (Hydrodiuril Tab*) 12.5 mg PO DAILY [facility] Last Admin: 10/26/18 09:31 Dose: 12.5 mg Insulin Glargine (Lantus(*)) 20 units SUBCUT Q24H [facility] Last Admin: 10/25/18 22:22 Dose: 20 unit Insulin Human Lispro (Humalog*) 0 units SUBCUT [facility]; Protocol Last Admin: 10/26/18 13:40 Dose: 9 units Insulin Human Lispro (Humalog*) 0 units SUBCUT [facility]; Protocol Last Admin: 10/26/18 13:41 Dose: 6 units Lisinopril (Prinivil Tab*) 10 mg PO DAILY [facility]; Protocol Last Admin: 10/26/18 09:36 Dose: 10 mg Metformin HCl (Glucophage*) 1,000 mg PO BID [facility] Last Admin: 10/26/18 09:36 Dose: 1,000 mg Ondansetron HCl (Zofran Inj*) 4 mg IV Q4H PRN PRN Reason: NAUSEA/VOMITING Pantoprazole Sodium (Protonix Tab*) 40 mg PO BID [facility] Last Admin: 10/26/18 09:37 Dose: 40 mg Allergies/Intolerances: wool Social History: Lives with roommate. Former smoker with 30+ PY history. Denies alcohol or drugs. Family History: Mother with severe diabetes. Father is unknown. Review of Systems: As above. 12 system review is otherwise normal. OBJECTIVE: Temp Pulse Resp BP Pulse Ox 97.1 F 61 16 125/71 95 10/26/18 11:10 10/26/18 11:10 10/26/18 11:29 10/26/18 11:10 10/26/18 11:10 General: alert, pleasant, oriented, no distress ENT: neck supple, no thyromegaly, no bruit is heard Chest: CTAB, no wheezing or crackles CV: RRR, no murmur Abdomen: soft, non-tender Extremities: no edema, distal pulses intact Skin: warm, dry, no rash Neuro: grossly intact motor/sensory in extremities Psych: restricted affect, pleasant Labs: 10/24/18 21:11 444 - 20G 10/25/18 07:00 242 - 6L 10/25/18 11:00 335 - 12L 10/25/18 19:29 161 - 6L, 20G 10/26/18 07:30 201 - 6L 10/26/18 11:30 270 - WBC 5.1 10^3/uL (3.5-10.8) 10/25/18 06:23 RBC 4.25 10^6 /uL (4.18-5.48) 10/25/18 06:23 Hgb 13.5 g/dL (14.0-18.0) L 10/25/18 06:23 Hct 38 % (42-52) L 10/25/18 06:23 MCV 89 fL (80-94) 10/25/18 06:23 MCH 32 pg (27-31) H 10/25/18 06:23 MCHC 36 g/dL (31-36) 10/25/18 06:23 RDW 13 % (10.5-15) 10/25/18 06:23 Plt Count 184 10^3/uL (150-450) 10/25/18 06:23 MPV 8.1 fL (7.4-10.4) 10/25/18 06:23 Neut % (Auto) 45.2 % 10/25/18 06:23 Lymph % (Auto) 38.3 % 10/25/18 06:23 Pike % (Auto) 10.8 % 10/25/18 06:23 Eos % (Auto) 4.8 % 10/25/18 06:23 Baso % (Auto) 0.9 % 10/25/18 06:23 Absolute Neuts (auto) 2.3 10^3/ul (1.5-7.7) 10/25/18 06:23 Absolute Lymphs (auto) 1.9 10^3/ul (1.0-4.8) 10/25/18 06:23 Absolute Monos (auto) 0.5 10^3/ul (0-0.8) 10/25/18 06:23 Absolute Eos (auto) 0.2 10^3/ul (0-0.6) 10/25/18 06:23 Absolute Basos (auto) 0.0 10^3/ul (0-0.2) 10/25/18 06:23 Absolute Nucleated RBC 0.0 10^3/ul 10/25/18 06:23 Nucleated RBC % 0.1 10/25/18 06:23 INR (Anticoag Therapy) 0.94 (0.82-1.09) 10/24/18 21:24 VBG pH 7.37 (7.32-7.43) 10/24/18 21:24 VBG pCO2 48 mmHg (41-51) 10/24/18 21:24 VBG pO2 < 38.0 mmHg (35-45) 10/24/18 21:24 VBG HCO3 25.0 mmol/L (24-28) 10/24/18 21:24 VBG O2 Saturation 52.9 % (70-80) L 10/24/18 21:24 VBG Base Excess 1.7 mmol/L (0.0-4.0) 10/24/18 21:24 Sodium 137 mmol/L (135-145) 10/26/18 06:27 Potassium 4.0 mmol/L (3.5-5.0) 10/26/18 06:27 Chloride 103 mmol/L (101-111) 10/26/18 06:27 Carbon Dioxide 29 mmol/L (22-32) 10/26/18 06:27 Anion Gap 5 mmol/L (2-11) 10/26/18 06:27 BUN 12 mg/dL (6-24) 10/26/18 06:27 Creatinine 1.01 mg/dL (0.67-1.17) 10/26/18 06:27 Est GFR ( Amer) 90.9 (>60) 10/26/18 06:27 Est GFR (Non-Af Amer) 75.1 (>60) 10/26/18 06:27 BUN/Creatinine Ratio 11.9 (8-20) 10/26/18 06:27 Glucose 222 mg/dL (70-100) H 10/26/18 06:27 POC Glucose (mg/dL) 270 mg/dL (70-100) H 10/26/18 11:39 Hemoglobin A1c 14.5 % (4.0-5.6) H 10/24/18 21:24 Calcium 9.3 mg/dL (8.6-10.3) 10/26/18 06:27 Magnesium 2.0 mg/dL (1.9-2.7) 10/24/18 21:24 Total Bilirubin 0.30 mg/dL (0.2-1.0) 10/24/18 21:24 AST 13 U/L (13-39) 10/24/18 21:24 ALT 20 U/L (7-52) 10/24/18 21:24 Alkaline Phosphatase 255 U/L (34-104) H 10/24/18 21:24 C-Reactive Protein 1.84 mg/L (<8.01) 10/24/18 21:24 Total Protein 6.3 g/dL (6.4-8.9) L 10/24/18 21:24 Albumin 4.1 g/dL (3.2-5.2) 10/24/18 21:24 Globulin 2.2 g/dL (2-4) 10/24/18 21:24 Albumin/Globulin Ratio 1.9 (1-3) 10/24/18 21:24 TSH 1.56 mcIU/mL (0.34-5.60) 10/24/18 21:24 Urine Color Straw 10/24/18 22:58 Urine Appearance Clear 10/24/18 22:58 Urine pH 6.0 (5-9) 10/24/18 22:58 Ur Specific [place] 1.029 (1.010-1.030) 10/24/18 22:58 Urine Protein Negative (Negative) 10/24/18 22:58 Urine Ketones Trace (Negative) A 10/24/18 22:58 Urine Blood Negative (Negative) 10/24/18 22:58 Urine Nitrate Negative (Negative) 10/24/18 22:58 Urine Bilirubin Negative (Negative) 10/24/18 22:58 Urine Urobilinogen Negative (Negative) 10/24/18 22:58 Ur Leukocyte Esterase Negative (Negative) 10/24/18 22:58 Urine Glucose 3+(>=500 mg/dl) (Negative) A 10/24/18 22:58
--- NOTE | 2018-10-26 15:51 | PN ---
Subjective Date of Service: 10/26/18 Interval History: Mr. Banuelos is feeling well today. He offers no complaints. Denies CP, SOB, N/V. Appetite is good. No dizziness or lightheadedness. Has been up ambulating without difficulty. No concerns from nursing. Tele: Sinus allyn down to the 40s while sleeping to NSR in the 70s while awake. Family History: Unchanged from Admission Social History: Unchanged from Admission Past Medical History: Unchanged from Admission Objective Active Medications: Acetaminophen (Tylenol Tab*) 650 mg PO Q4H PRN FEVER/PAIN Al Hydrox/Mg Hydrox/Simethicone (Maalox Plus*) 30 ml PO Q6H PRN INDIGESTION Amlodipine Besylate (Norvasc Tab*) 5 mg PO DAILY [facility] Baclofen (Lioresal Tab*) 10 mg PO TID [facility] Cholecalciferol (Vitamin D Tab*) 2,000 units PO DAILY [facility] Cyclobenzaprine HCl (Flexeril Tab*) 5 mg PO QAM [facility] Cyclobenzaprine HCl (Flexeril Tab*) 10 mg PO QPM [facility] Dextrose (D50w Syringe 50 Ml*) 12.5 gm IV PUSH .FOR FS < 60 - SS PRN FS < 60 Escitalopram Oxalate (Lexapro *) 10 mg PO DAILY [facility] Gabapentin (Neurontin Cap(*)) 300 mg PO TID [facility] Gemfibrozil (Lopid Tab*) 600 mg PO BID [facility] Heparin Sodium (Porcine) (Heparin Vial(*)) 5,000 units SUBCUT Q8HR [facility] Hydrochlorothiazide (Hydrodiuril Tab*) 12.5 mg PO DAILY [facility] Insulin Human NPH (Insulin Nph(*)) 12 units SUBCUT BID [facility] Insulin Human Regular (Insulin Regular(*)) 8 units SUBCUT AC [facility] Lisinopril (Prinivil Tab*) 10 mg PO DAILY [facility]; Protocol Metformin HCl (Glucophage*) 1,000 mg PO BID [facility] Ondansetron HCl (Zofran Inj*) 4 mg IV Q4H PRN NAUSEA/VOMITING Pantoprazole Sodium (Protonix Tab*) 40 mg PO BID [facility] Vital Signs - 8 hr 10/26/18 10/26/18 10/26/18 09:01 09:34 09:35 Temperature 97 F Pulse Rate 55 Respiratory 18 16 16 Rate Blood Pressure 139/80 (mmHg) O2 Sat by Pulse 97 Oximetry 10/26/18 10/26/18 10/26/18 11:10 11:29 13:40 Temperature 97.1 F Pulse Rate 61 Respiratory 20 16 16 Rate Blood Pressure 125/71 (mmHg) O2 Sat by Pulse 95 Oximetry Oxygen Devices in Use Now: None Appearance: Middle-aged male sitting in bed in NAD Eyes: No Scleral Icterus Ears/Nose/Mouth/Throat: Mucous Membranes Moist Neck: NL Appearance and Movements; NL JVP, Trachea Midline Respiratory: Symmetrical Chest Expansion and Respiratory Effort, Clear to Auscultation Cardiovascular: NL Sounds; No Murmurs; No JVD, RRR Abdominal: NL Sounds; No Tenderness; No Distention Extremities: No Edema Skin: No Rash or Ulcers Neurological: Alert and Oriented x 3 Lines/Tubes/Other Access: Clean, Dry and Intact Peripheral IV Nutrition: Taking PO's Result Diagrams: 10/25/18 06:23 10/26/18 06:27 Assess/Plan/Problems-Billing Assessment: Mr. Banuelos is a 62 yo M with PMH of DM, HTN, HLD, neuropathy, and anxiety; who presented to the ED with c/o hyperglycemia and was admitted for further management of glucose. - Patient Problems (1) Type II diabetes mellitus Comment: - Hyperglycemia up in the 600s on admission, but no evidence of HHNS - Has not been able to afford insulin for the last few months - A1c 14.5% - Appreciate Endocrinology consult - Will need to ensure medications prescribed at d/c are affordable so that he is compliant going forward - Continue metformin; start NPH and regular insulin per Endo recommendations (2) HTN (hypertension) Code(s): I10 - ESSENTIAL (PRIMARY) HYPERTENSION Comment: - Normotensive, SBP 120s - Continue amlodipine, lisinopril (3) Diabetic neuropathy Code(s): E11.40 - TYPE 2 DIABETES MELLITUS WITH DIABETIC NEUROPATHY, UNSP Comment: - Continue gabapentin (4) Hyperlipidemia Code(s): E78.5 - HYPERLIPIDEMIA, UNSPECIFIED Comment: - Continue gemfibrozil (5) Anxiety and depression Code(s): F41.9 - ANXIETY DISORDER, UNSPECIFIED; F32.9 - MAJOR DEPRESSIVE DISORDER, SINGLE EPISODE, UNSPECIFIED Comment: - Continue escitalopram (6) Chronic back pain Code(s): M54.9 - DORSALGIA, UNSPECIFIED; G89.29 - OTHER CHRONIC PAIN Comment: - Continue baclofen, Flexeril (7) GERD (gastroesophageal reflux disease) Code(s): K21.9 - GASTRO-ESOPHAGEAL REFLUX DISEASE WITHOUT ESOPHAGITIS Comment : - Continue pantoprazole (8) DVT prophylaxis Comment: - Heparin SQ (9) Full code status Code(s): Z78.9 - OTHER SPECIFIED HEALTH STATUS Comment: Status and Disposition: Observation. Anticipate d/c home tomorrow. Attending: Bhavani Thomas
[2018-10-26] MEDS ORDERED: Insulin REGULAR(*) 1 UNITS UNIT SUBCUT SCH (16:30)
[2018-10-26] MEDS: Insulin REGULAR(*) 1 UNITS UNIT SUBCUT SCH (17:27)
[2018-10-26] MEDS: Insulin NPH(*) 1 UNITS UNIT SUBCUT SCH (21:17)
[2018-10-27 03:30] VITALS: BP 103/64
[2018-10-27] MEDS: Heparin VIAL(*) 5000 UNITS/ML VIAL (FIVE THOUSAND) SUBCUT SCH (05:15)
[2018-10-27] MEDS: Insulin REGULAR(*) 1 UNITS UNIT SUBCUT SCH ×2 (07:35→12:05)
[2018-10-27] MEDS: Hydrochlorothiazide TAB* 25 MG PO SCH (08:11)
[2018-10-27] MEDS: metFORMIN* 1,000 MG TAB PO SCH (08:11)
[2018-10-27] MEDS: Escitalopram * 10 MG TAB PO SCH (08:11)
[2018-10-27] MEDS: Pantoprazole TAB * 40 MG TAB PO SCH (08:11)
[2018-10-27] MEDS: Gabapentin CAP(*) 300 MG PO SCH (08:11)
[2018-10-27] MEDS: amLODIPine TAB* 5 MG PO SCH (08:12)
[2018-10-27] MEDS: Cyclobenzaprine TAB* 10 MG PO SCH (08:12)
[2018-10-27] MEDS: Gemfibrozil TAB* 600 MG PO SCH (08:12)
[2018-10-27] MEDS: Lisinopril TAB* 10 MG PO SCH (08:12)
[2018-10-27] MEDS: Insulin NPH(*) 1 UNITS UNIT SUBCUT SCH (08:13)
[2018-10-27] MEDS: Baclofen TAB* 10 MG PO SCH (08:13)
[2018-10-27] MEDS: Cholecalciferol TAB* 1000 UNITS PO SCH (08:13)
--- NOTE | 2018-10-27 23:22 | DS ---
CC: Dr. Tawanna Crooks; Dr. Nayan Mayfield * DISCHARGE SUMMARY: DATE OF ADMISSION: 10/24/18 DATE OF DISCHARGE: 10/27/18 PRIMARY CARE PROVIDER: Dr. Tawanna Crooks. ATTENDING PHYSICIAN: Dr. Bhavani Barron * (dictated by Delores Anne NP). PRIMARY DIAGNOSIS: Uncontrolled diabetes mellitus type 2. SECONDARY DIAGNOSES: 1. Hypertension. 2. Diabetic neuropathy. 3. Hyperlipidemia. 4. Anxiety. 5. Depression. 6. Chronic back pain. 5. Gastroesophageal reflux disease. STUDIES [facility] IN THE HOSPITAL: 1. EKG on 10/24/18 shows normal sinus rhythm with a rate of 65. QTc 396. No ischemic changes. 2. Chest x-ray on 10/24/18 reads as no active cardiopulmonary disease. CONSULTATIONS WHILE IN THE HOSPITAL: Dr. Mayfield from Endocrinology on 10/26/18. HISTORY OF PRESENT ILLNESS AND HOSPITAL COURSE: Mr. Banuelos is a 62-year-old male with past medical history of type 2 diabetes, hypertension, hyperlipidemia , anxiety, chronic back pain, and diabetic neuropathy, who presented to the emergency room on 10/24/18 with complaints of hyperglycemia. Please see the history and physical by Dr. Gimenez for complete summary of the events leading up to this hospitalization. The patient has been diabetic for greater than 15 years and has been prescribed Lantus and Victoza by his PCP for the last 3 months. He had not been taking these medications as he was not able to afford them. At home, he checked his blood sugar and it was noted to be greater than 400 and so he presented to the emergency room. In the emergency room, he was noted to have a glucose of 650 and an elevated alk phos. There was no anion gap and there was no evidence of hyperosmolar hyperglycemic nonketotic state. Because of the concern for hyperglycemia and medication noncompliance, the patient was admitted by the hospitalist service. He was initially started on Lantus and sliding scale lispro. Blood sugars were difficult to control and were up into the 300s. He did have an A1c of 14.5%. The patient was seen in consultation by Dr. Mayfield who recommended placing the patient on Novolin R, Novolin N, continuing metformin, checking fingersticks b.i.d. and close followup with the patient's PCP and with Dr. Mayfield. I will note that the patient has used insulin in the past and has actually been on a regimen of Novolin R and Novolin N, so is familiar with these medications and appropriate administration. Ultimately, it was decided that the patient needed to have insulin on his before leaving the hospital due to the concern for hyperglycemia and potential complications including HHNS with sustained hyperglycemia. The outpatient pharmacy here at the hospital was able to secure regular and NPH insulin today on 10/27/18 and so the plan is for the patient to obtain those medications from the pharmacy prior to discharge. Vital signs have been stable throughout this hospitalization. I will note that he does seem to get slightly bradycardic down into the 50s while he sleeps though is asymptomatic. PHYSICAL EXAMINATION: Mr. Banuelos is stable for discharge today. Vital signs are as follows: Temp 98.1, heart rate 59, respiratory rate 18, oxygen saturation 97% on room air, blood pressure 103/64. DISCHARGE MEDICATIONS: New medications: 1. NPH insulin 12 units subcu b.i.d. 2. Regular insulin 8 units subcu a.c. Continued medications: 1. Amlodipine 5 mg p.o. daily. 2. Baclofen 10 mg p.o. t.i.d. 3. Cholecalciferol 2000 units p.o. daily. 4. Cyclobenzaprine 10 mg p.o. at bedtime. 5. Cyclobenzaprine p.o. daily. 6. Escitalopram 10 mg p.o. daily. 7. Fluocinonide 0.05% one application topically t.i.d. 8. Gabapentin 300 mg p.o. t.i.d. 9. Gemfibrozil 600 mg p.o. b.i.d. 10. Ipratropium 0.03% one spray both nares b.i.d. 11. Ketorolac 0.05% one drop both eyes daily. 12. Lidocaine 5% one application topically daily. 13. Lisinopril/hydrochlorothiazide 10/12.5 one tab p.o. daily. 14. Lorazepam 1 mg p.o. q. 8 hours p.r.n. anxiety. 15. Metformin 1000 mg p.o. b.i.d. 16. Omeprazole 20 mg p.o. b.i.d. 17. Tizanidine 2 mg p.o. b.i.d. Discontinued medication: 1. Victoza. DISCHARGE PLAN: Mr. Banuelos will be discharged to home. Activity will be as tolerated. Diet should be diabetic. Medications are noted above. I have prescribed diabetic medications as per Dr. Mayfield's recommendations. He will need to take 8 units of regular with meals. He should only take those medication with food and should not take it if his blood glucose is less than 80. He will need to take NPH 12 units twice daily and should resume his current dose of metformin. He should check his fingersticks twice daily. He can continue his other usual medications and I have not made any further changes except for that he should discontinue his Victoza, which he was not actually taking. The patient will need to follow up with his primary care provider in 4 to 7 days. The patient did have an elevated alk phos while here in the hospital at 2:55. He does seem to have a chronically elevated alk phos though this is much more elevated than usual, so this may warrant further investigation by the patient's PCP. He will additionally need to follow up with Dr. Mayfield and I have scheduled him an appointment for 11/10/18 at 10:20 a.m. The patient has been advised to return to the emergency room or nearest hospital for any worsening symptoms, shortness of breath, lightheadedness, dizziness, chest discomfort, high fevers, chills, night sweats, loss of consciousness, or any other worrisome signs or symptoms. DISCHARGE CONDITION: Stable. DISCHARGE DISPOSITION: Home. This is a summarized report of a complex medical history and hospital stay. For further details, please see the entire medical record. TIME SPENT: Approximately 45 minutes was spent on this discharge. DELORES ANNE, ELECTRONIC SEMICOND[employer]CTOR PROCESSOR [id number]/[facility] #: [id number] LONA
== END 2018-10-27 14:00 | disposition home or self-care (01) ==
LOC: ED 19:31 → MED 22:55
PROVIDERS: ADMIT Pediatrics; ATTEND Internal Medicine
DX: E11.65 Type 2 diabetes mellitus with hyperglycemia (principal); E11.40 Type 2 diabetes mellitus with diabetic neuropathy, unspecified; R42 Dizziness and giddiness; I10 Essential (primary) hypertension; E78.5 Hyperlipidemia, unspecified; F41.9 Anxiety disorder, unspecified; F32.9 Major depressive disorder, single episode, unspecified; G89.29 Other chronic pain; M54.9 Dorsalgia, unspecified; K21.9 Gastro-esophageal reflux disease without esophagitis; Z87.891 Personal history of nicotine dependence
CPT/HCPCS: 36415; 71045; 80048; 80053; 81003; 82803; 83036; 83735; 84443; 85025; 85610; 86140; 93005; 96372; 99284; A9270-GY; G0378; J1644

== ENCOUNTER 2019-02-16 13:40 | Inpatient (IN) | payer MEDICARE ==
[2019-02-16] MEDS ORDERED: NS 0.9% 1000 ML** 1,000 ML IV ONE (13:56)
--- NOTE | 2019-02-16 13:59 | ED ---
Neurological HPI - HPI Summary HPI Summary: This patient is a 63 year old M presenting to ED with a chief complaint of right -sided numbness since 0900 this morning when he woke up. The numbness is in the RUE and RLE. Patient usually has neuropathy, so he usually has numbness in his feet but this is the first time it is in the entire right side. He reports weakness in the RUE and RLE. Patient drove himself to the ER. Bertha lee called at 1350 in Triage. Patient arrives in ED room at 1351. Dr. Lund at bedside at 1351. Dr. Colorado, neurologist, at bedside at 1355. Patient is not a candidate for tPA as the onset of patient's symptoms is unclear as he woke up with his symptoms. The patient rates the pain 0/10 in severity. Symptoms aggravated by nothing. Symptoms alleviated by nothing. Patient denies fever. Patient reports shortness of breath. Patient takes Lisinopril. Patient denies history of kidney disease but he has DM and HTN. - History of Current Complaint Chief Complaint: EDNeurologicalDeficit Stated Complaint: RIGHT SIDED NUMBNESS PER PT Hx Obtained From: Patient Onset/Duration: Sudden Onset, Started hours ago - 0900 this morning when patient woke up, Still Present Timing: Constant Onset Severity: Mild Current Severity: Mild Pain Intensity: 0 Character: Weak, Numbness/Tingling Aggravating: Nothing Alleviating: Nothing Associated Signs and Symptoms: Positive: Weakness - RUE/RLE, Numbness - RUE/RLE , Shortness of Breath TPA Considered: No - Additional Pertinent History Primary Care Physician: [facility] - Allergy/Home Medications Allergies/Adverse Reactions: Allergies Allergy/AdvReac Type Severity Reaction Status Date / Time wool Allergy Rash And Verified 10/24/18 20:00 Itching Home Medications: Home Medications Citalopram TAB* [CeleXA TAB*] 20 mg PO DAILY 02/16/19 [History Confirmed ] Insulin GLARGINE(*) [Lantus(*)] 12 units SUBCUT BID 02/16/19 [History Confirmed 02/16/19] Insulin REGULAR(*) 8 units SUBCUT AC 02/16/19 [History Confirmed 02/16/19] LORazepam TAB(*) [Ativan 1 MG TAB (*)] 1 mg PO BID PRN 02/16/19 [History Confirmed 02/16/19] Lidocaine 5% OINT* TUBE [Xylocaine 5% Oint*] 1 applic TOPICAL SEE INSTRUCTIONS 02/16/19 [History Confirmed 02/16/19] Lisinopril TAB* [Prinivil TAB*] 5 mg PO DAILY 02/16/19 [History Confirmed ] Tadalafil [Cialis] 20 mg PO DAILY PRN 02/16/19 [History Confirmed 02/16/19] PMH/Surg Hx/FS Hx/Imm Hx Endocrine/Hematology History: Reports: Hx Diabetes Denies: Hx Anticoagulant Therapy Cardiovascular History: Reports: Hx Hypertension Denies: Hx Pacemaker/ICD GI History: Reports: Hx Gastroesophageal Reflux Disease History: Denies: Hx Renal Disease Musculoskeletal History: Reports: Hx Arthritis, Hx Back Problems, Other Musculoskeletal History - ARTHRITIS, back surgery Sensory History: Denies: Hx Contacts or Glasses, Hx Hearing Aid Opthamlomology History: Denies: Hx Contacts or Glasses Neurological History: Reports: Other Neuro Impairments/Disorders - PAIN CLINIC PATIENT Psychiatric History: Reports: Hx Anxiety, Hx Depression, Hx Post Traumatic Stress Disorder Denies: Hx Eating Disorder, Hx Panic Disorder, Hx of Violent Episodes Against Others - Surgical History Surgery Procedure, Year, and Place: BONE FRAGMENT REMOVED 2000-LUMBAR; APPENDECTOMY 1984; - Immunization History Date of Tetanus Vaccine: unknown Infectious Disease History: No Infectious Disease History: Denies: Traveled Outside the [place] in Last 30 Days - Family History Known Family History: Positive: Diabetes, Other - ETOH abuse (father) - Social History Alcohol Use: None Alcohol Amount: sober x6 years Hx Substance Use: No Substance Use Type: Reports: None Hx Tobacco Use: No Smoking Status (MU): Never Smoked Tobacco Have You Smoked in the Last Year: No Review of Systems Negative: Fever Positive: Weakness - RUE/RLE, Numbness - RUE/RLE All Other Systems Reviewed And Are Negative: Yes Physical Exam - Summary Physical Exam Summary: VITAL SIGNS: Reviewed. GENERAL: Patient is a well-developed and nourished male who is lying comfortable in the stretcher.Patient is not in any acute respiratory distress. HEAD AND FACE: No signs of trauma. No ecchymosis, hematomas or skull depressions. No sinus tenderness. EYES: PERRLA, EOMI x 2, No injected conjunctiva, no nystagmus. No photophobia. EARS: Hearing grossly intact. Ear canals and tympanic membranes are within normal limits. MOUTH: Dry oral mucosa. NECK: Supple, trachea is midline, no adenopathy, no JVD, no carotid bruit, no c- spine tenderness, neck with full ROM. No meningeal signs, no Kernig's or brudzinskis signs. CHEST: Symmetric, no tenderness at palpation. LUNGS: Clear to auscultation bilaterally. No wheezing or crackles. CVS: Regular rate and rhythm, S1 and S2 present, no murmurs or gallops appreciated. ABDOMEN: Soft, non-tender. No signs of distention. No rebound, no guarding, and no masses palpated. Bowel sounds are normal. EXTREMITIES: FROM in all major joints, no edema, no cyanosis or clubbing. NEURO: Numbness and weakness in both lower extremities and right upper extremity. Alert and oriented x 3. Speech is normal and follows commands. SKIN: Dry and warm. GCS: 15 NIH: 2 Triage Information Reviewed: Yes Vital Signs On Initial Exam: Initial Vitals Temp Pulse Resp BP Pulse Ox 97.5 F 97 16 99/67 98 02/16/19 13:41 02/16/19 13:41 02/16/19 13:41 02/16/19 13:41 02/16/19 13:41 Vital Signs Reviewed: Yes Diagnostics - Vital Signs Vital Signs Temp Pulse Resp BP Pulse Ox 02/16/19 13:41 97.5 F 97 16 99/67 98 - Laboratory Result Diagrams: 02/17/19 04:54 02/17/19 04:54 Lab Statement: Any lab studies that have been ordered have been reviewed, and results considered in the medical decision making process. - Radiology CXR Radiology Interpretation Completed By: Radiologist Summary of Radiographic Findings: NO ACTIVE CARDIOPULMONARY DISEASE. Dr. Lund has reviewed this radiology report. - CT Brain CT Interpretation Completed By: Radiologist Summary of CT Findings: No acute intracranial pathology. Dr. Lund has reviewed this radiology report. Head CTA CT Interpretation Completed By: Radiologist Summary of CT Findings: 1. NO INTERNAL CAROTID ARTERY STENOSIS BY NASCET CRITERIA. 2. NO ANEURYSM, VASCULAR MALFORMATION, OCCLUSION, OR STENOSIS OF THE VISUALIZED INTRACRANIAL CIRCULATION. Dr. Lund has reviewed this radiology report. - EKG 1412 Cardiac Rate: NL - 77 BPM EKG Rhythm: Sinus Rhythm EKG Comparison: No Significant Change Summary of EKG Findings: NSR 77 at BPM, no ST elevations, Q waves in II and III , similar to previous taken 10/24/18. Dr. Lund has reviewed and interpreted this EKG. 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 Hand: Both Correctly Best Gaze (Only Horizontal Eye Movement): Normal Visual Field Testing: No Visual Loss Facial Paresis-Pt to Smile & Close Eyes or Grimace Symmetry: Normal/Symmetrical Motor Function - Right Arm: No Drift-Holds 10 Seconds Motor Function - Left Arm: No Drift-Holds 10 Seconds Motor Function - Right Leg: Drifts LT 10 seconds Motor Function - Left Leg: No Drift-Holds 10 Seconds Limb Ataxia-Must be out of Proportion to Weakness Present: Absent Sensory (Use Pinprick to Test Arms/Legs/Trunk/Face): Pinprick Less on Affected Best Language (Describe Picture, Name Items): No Aphasia Dysarthria (Read Several Words): Normal Extinction and Inattention: No Abnormality Total Score: 2 Course/Dx - Course Assessment/Plan: This patient is a 63-year-old male who presents to the emergency department with a chief complaint of having numbness in the right side of the body. He doesnt know the onset of the symptoms. The patient woke up with the symptoms. Patient has a history of peripheral neuropathy in both lower extremities however the patient knew symptoms is right upper extremity numbness. Bertha lee was called at triage. Dr. Colorado at bedside. Head CT impression: Negative for an acute intracranial pathology. Head CTA impression: No internal carotid artery stenosis. No aneurysm, vascular malformation, occlusion or stenosis of the visualized intrathoracic lesion. Blood work without any significant abnormality except for sodium 134, chloride 96, creatinine 1.3, glucose 376 lactic acid is 3.8. Alkaline phosphatase 189. Dr. Colorado reported the patient is not a candidate for TPA since the onset of symptoms are unknown. He recommends for the patient to be admitted to the hospital services for further workup and management. I discussed my physical exam and findings with Dr. Tomlinson from the hospital services and she accepted the patient for admission. The patient is hemodynamically stable alert and oriented 3. - Differential Dx Differential Diagnoses Neuro: Positive: Carbon Monoxide Poisoning, Cerebrovascular Accident, Headache, Hypertension, Hypoglycemia, Seizure Disorder , Transient Ischemic Attack - Diagnoses Provider Diagnoses: CVA (cerebral vascular accident) During the Visit The Following Alert/Code Occurred: Code Coronel - Physician Notifications Discussed Care Of Patient With: Calvin Colorado Time Discussed With Above Provider: 13:55 Instructed by Provider To: Other - At 1355, discussed patient case with Dr. Colorado, who agrees that patient is not a tPA candidate. At 1410, Dr. Reed, radiologist, reports no acute intracranial abnormalities in the brain CT. At 1449, discussed patient case with Dr. Colorado, neurologist, who gave the patient Plavix and Aspirin and recommended the patient be admitted to [facility]. At 1517, discussed patient case with Dr. Tomlinson, hospitalist, who accepted the patient for admission to [facility]. Discharge ED - Sign-Out/Discharge Documenting (check all that apply): Patient Departure - Admit Patient Received Moderate/Deep Sedation with Procedure: No - Discharge Plan Condition: Fair Disposition: ADMITTED TO [facility] - Billing Disposition and Condition Condition: FAIR Disposition: Admitted to [facility] - Attestation Statements Document Initiated by Magdalena: Yes Documenting Scribe: Hayder Castañeda Provider For Whom Magdalena is Documenting (Include Credential): Ramon Lund MD Scribe Attestation: Hayder Graham, scribed for Ramon Lund MD on 02/17/19 at 1841. Scribe Documentation Reviewed: Yes Provider Attestation: The documentation as recorded by the Hayder brown accurately reflects the service I personally performed and the decisions made by me, Ramon Lund MD Status of Scribe Document: Viewed
[2019-02-16] MEDS ORDERED: Iodixanol* (CONTRAST) 320 MG/ML 100 ML SDV IV ONE (14:11)
[2019-02-16 14:25] LABS: INR 0.98 (0.82-1.09)
[2019-02-16 14:27] LABS: ABS Basophils 0.1 10^3/ul (0-0.2); ABS Eosinophils 0.2 10^3/ul (0-0.6); ABS Lymphocytes 2.1 10^3/ul (1.0-4.8); ABS Monocytes 0.7 10^3/ul (0-0.8); ABS Neutrophils 4.8 10^3/ul (1.5-7.7); Eosinophil % 2.3 %; Hematocrit 47 % (42-52); Hemoglobin 16.6 g/dL (14.0-18.0); Lymphocyte % 26.5 %; Mean Corpuscular HGB Conc 36 g/dL (31-36); Mean Corpuscular Hemoglobin 32 pg (27-31); Mean Corpuscular Volume 91 fL (80-94); Platelet Count 279 10^3/uL (150-450); Red Blood Count 5.16 10^6 /uL (4.18-5.48); Red Cell Distribution Width 13 % (10-15); White Blood Count 7.8 10^3/uL (3.5-10.8)
[2019-02-16 14:34] LABS: Albumin 4.7 g/dL (3.2-5.2); Albumin/Globulin Ratio 1.9 (1-3); BUN/Creatinine Ratio 9.9 (8-20); Calcium 9.9 mg/dL (8.6-10.3); EGFR African American 67.1 (>60); EGFR Non-African American 55.4 (>60); Globulin 2.5 g/dL (2-4); Potassium 4.3 mmol/L (3.5-5.0); Total Bilirubin 0.9 mg/dL (0.2-1.0); Total Protein 7.2 g/dL (6.4-8.9)
[2019-02-16] MEDS ORDERED: Aspirin TAB* 325 MG PO ONE (14:45)
[2019-02-16] MEDS ORDERED: Clopidogrel TAB* 300 MG PO ONE (14:46)
--- NOTE | 2019-02-16 15:30 | CONS ---
CONTINUATION ADDENDUM NOW INCLUDED ON THIS REPORT CC: Dr. Crooks * NEUROLOGY CONSULTATION: DATE OF CONSULT: 02/16/19 LOCATION: He is in the emergency room to be admitted. REFERRING PROVIDER: Dr. Lund. CHIEF COMPLAINT: Right-sided numbness. HISTORY OF PRESENT ILLNESS: Jack Banuelos is a 63-year-old right-handed man who said he woke up this morning with his right side feeling numb. He ate breakfast and then after a while drove himself to the emergency room. The time he presented to the emergency room was about 5 hours after he woke up. A code lee was called. He continued to complain numbness of the right arm and leg, but not of the right face. He thought that his right leg might have been weak. He did not have any problems with headache or change in vision. He says he took his medications regularly, but was unable to provide a coherent history about which medicines he is taking and which he is not. He was taken to the CT scanner where a CT scan of the brain without contrast was obtained and was interpreted as normal. I reviewed the images and I agreed. He had a CT angiogram of the head and neck while still at the same visit to the CT scanner and that was interpreted as no significant extracranial or intracranial vascular abnormalities. I reviewed the study as well personally and I agreed. He has diabetes and has been admitted before for uncontrolled hyperglycemia. I saw him back in 2014 with severe hyperglycemia and confusion. PAST MEDICAL HISTORY: Notable for diabetes, noncompliance, schizoaffective disorder, chronic back pain, hyperlipidemia, hypertension, diabetic neuropathy. MEDICATIONS: Medications taken at home that he was discharged on when he was here with uncontrolled hyperglycemia on 10/27/18 include: 1. NPH insulin. 2. Regular insulin. 3. Amlodipine. 4. Baclofen 10 mg p.o. t.i.d. 5. Cyclobenzaprine 10 mg p.o. at bedtime. 6. Escitalopram 10 mg p.o. q. day. 7. Gabapentin 300 mg p.o. t.i.d. 8. Gemfibrozil 600 mg p.o. b.i.d. 9. Lisinopril/hydrochlorothiazide /12.5 one p.o. q. day. 10. Lorazepam 1 mg p.o. q.8 hours as needed for anxiety. 11. Metformin 1000 mg p.o. b.i.d. 12. Omeprazole 20 mg p.o. b.i.d. 13. Tizanidine 2 mg p.o. b.i.d. ALLERGIES: He does not have any drug allergies according to our computer records. REVIEW OF SYSTEMS: On the patient is negative for headache, change in vision, recent fevers, or falls. He has some occasional shooting pains in his feet and says that they are numb. He says this is longstanding and that is from his diabetes. PHYSICAL EXAM: He is a little bit disheveled, but appears to be well nourished and well hydrated. Temperature 97.5, blood pressure initially 99/67 but subsequently 124/77, heart rate in the 70s and in sinus on the monitor, respiratory rate is 16, and oxygen saturation is 98% on room air. Heart tones are normal. There are no cervical bruits. Neurological Exam: Pupils react equally from 3 down to 2 mm. Visual angela are full to confrontation. Facial musculature is symmetric. Eye movements are normal. Palate and tongue are normal and speech is clear. Facial sensation to light touch and pin is symmetrical. Motor exam reveals normal strength proximally and distally in upper and lower extremities. There is no drift of any limb. CONTINUATION ADDENDUM: PHYSICAL EXAM: He is a little bit slow in [id number] maneuver, but there is no sustention, action, or rest tremor. Finger taps are slow in the hands, but symmetrical. Nfrw-zq-wypa maneuver is a little bit limited orthopedically, but otherwise normal. On sensory exam, in the limbs, he reports decreased sensation to light touch and pin in the right arm and right leg relative to the left. He has stocking loss of sensation distally in the lower extremities. He has trace reflexes in the upper extremities and at the knees, absent at the ankles. Plantar responses are flexor bilaterally. There is no extinction to double simultaneous stimulation for sensory to the face and arms. There is no extinction to double simultaneous stimulation to visual angela either. He is alert and oriented and a somewhat inconsistent historian. Language is simple, but fluent. DIAGNOSTIC STUDIES/LAB DATA: Laboratory data includes a CT imaging and CT angiogram of the brain mentioned in the history of present illness. His CBC is normal today. INR and PTT are normal. His fingerstick glucose was 422, his blood glucose with his chemistry profile was 376. His lactic acid is elevated at 3.8 and his creatinine is slightly elevated at 1.31. His chemistries also notable for a sodium of 134 and alkaline phosphatase of 189. His cholesterol today is 194 and LDL 106. His NIH Stroke Score is 1 for sensory deficit. IMPRESSION AND PLAN: Impression is that of a possible small vessel cerebrovascular ischemic event. If his deficits persist, he may have a small vessel left thalamic stroke. Alternatively, he may have hemisensory deficits from marked hyperglycemia. He should be admitted and get an MRI scan of the brain without contrast. I have written for him to get a loading dose of Plavix 300 mg and aspirin 324 mg[address] I spoke with Dr. Lund and recommended that he be admitted to the hospitalist service to telemetry. He clearly will need his diabetes treated and probably will need his statin restarted. I will continue to follow him along with you. TIME SPENT: 60 minutes was spent in the emergency room in [id number] treatment of this patient. [id number]/[facility] #: [id number] A- [id number]/[facility] #: [id number] LONA
--- NOTE | 2019-02-16 15:30 | CONS ---
NEUROLOGY CONSULTATION: DATE OF CONSULT: 02/16/19 LOCATION: He is in the emergency room, to be admitted to [address] [place] [address]. REFERRING PHYSICIAN: Dr. Lund. ADDENDUM: PHYSICAL EXAM: He is a little bit slow in [id number]-[id number]-peey maneuver, but there is no sustention, action, or rest tremor. Finger taps are slow in the hands, but symmetrical. Eobe-fy-wzgk maneuver is a little bit limited orthopedically, but otherwise normal. On sensory exam, in the limbs, he reports decreased sensation to light touch and pin in the right arm and right leg relative to the left. He has stocking loss of sensation distally in the lower extremities. He has trace reflexes in the upper extremities and at the knees, absent at the ankles. Plantar responses are flexor bilaterally. There is no extinction to double simultaneous stimulation for sensory to the face and arms. There is no extinction to double simultaneous stimulation to visual angela either. He is alert and oriented and a somewhat inconsistent historian. Language is simple, but fluent. DIAGNOSTIC STUDIES/LAB DATA: Laboratory data includes a CT imaging and CT angiogram of the brain mentioned in the history of present illness. His CBC is normal today. INR and PTT are normal. His fingerstick glucose was 422, his blood glucose with his chemistry profile was 376. His lactic acid is elevated at 3.8 and his creatinine is slightly elevated at 1.31. His chemistries also notable for a sodium of 134 and alkaline phosphatase of 189. His cholesterol today is 194 and LDL 106. His NIH Stroke Score is 1 for sensory deficit. IMPRESSION AND PLAN: Impression is that of a possible small vessel cerebrovascular ischemic event. If his deficits persist, he may have a small vessel left thalamic stroke. Alternatively, he may have hemisensory deficits from marked hyperglycemia. He should be admitted and get an MRI scan of the brain without contrast. I have written for him to get a loading dose of Plavix 300 mg and aspirin 324 mg[address] I spoke with Dr. Lund and recommended that he be admitted to the hospitalist service to telemetry. He clearly will need his diabetes treated and probably will need his statin restarted. I will continue to follow him along with you. TIME SPENT: 60 minutes was spent in the emergency room in [id number] treatment of this patient. [id number]/[facility] #: [id number] [facility] HOSPITALVera
[2019-02-16] MEDS: Insulin REGULAR(*) 1 UNITS UNIT SUBCUT SCH (17:51)
[2019-02-16] MEDS: Enoxaparin(*) 40 MG/0.4 ML SYR SUBCUT SCH (17:52)
--- NOTE | 2019-02-16 19:07 | HP ---
CC: Dr. Crooks; Dr. Colorado * HISTORY AND PHYSICAL: DATE OF ADMISSION: 02/16/19 PROVIDER: Deidra Arellano NP PRIMARY CARE PROVIDER: Dr. Crooks. ATTENDING PHYSICIAN WHILE IN THE HOSPITAL: Dr. Luda Tomlinson * (dictated by Deidra Arellano NP). CHIEF COMPLAINT: Right-sided numbness. HISTORY OF PRESENT ILLNESS: Mr. Banuelos is a 63-year-old male with a past medical history of type 2 diabetes, hypertension, anxiety, chronic back pain, hyperlipidemia, diabetic neuropathy of the feet, who presented to the emergency room with a complaint of right-sided numbness. The patient reports that he woke up this morning at approximately 9 a.m. and noticed that his right side was numb. He thought that the symptoms would subside, but they did not, so he presented to the emergency room for further evaluation. The patient denies any difficulty swallowing. Denies any difficulty with speech. Denies any visual changes, headache, or dizziness. He denies any head injuries or syncopal episodes. He denies any fever, chills, unintended weight loss, chest pain, or edema. Denies any cough, hemoptysis, or shortness of breath. No nausea, vomiting, diarrhea, or abdominal pain. Denies any gross hematuria or dysuria. He does report numbness to the right side with associated weakness. He does report that he almost fell x2 today. Denies any visual complaints, dysphagia, arthralgias, myalgias, rashes, lesions, open sores, psychosis, or anxiety. While in the emergency room, the patient was a code lee. He had routine lab work drawn and a CT of the brain and a CTA of the head, which were within normal limits. He was also seen by Neurology, Dr. Colorado, in the emergency room. The patient was given a loading dose of Plavix 300 mg and aspirin 325 mg. Due to his persistent right-sided numbness, Hospital Medicine was asked to admit the patient for TIA versus CVA workup. PAST MEDICAL HISTORY: Significant for: 1. Type 2 diabetes. 2. Hypertension. 3. Anxiety. 4. Chronic back pain. 5. Hyperlipidemia. 6. Seasonal allergies. 7. History of diabetic neuropathy of the feet. PAST SURGICAL HISTORY: 1. Back surgery. 2. Appendectomy. HOME MEDICATIONS: The patient reports that he takes: 1. Metformin 1000 mg b.i.d. 2. Lisinopril, unknown dose. The patient reports he does not know his other medications. A list from his primary care provider is being obtained. ALLERGIES: To WOOL. FAMILY HISTORY: Father's history is unknown. Mother with diabetes. SOCIAL HISTORY: The patient reports that he quit smoking in 1984. Prior to that, he smoked 1.5 packs per day x25 years. He denies any alcohol or illicit drug use. 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 Surrogate decision maker in the event he is unable to make his own decisions is his son. He is a full code. REVIEW OF SYSTEMS: A 14-point review of systems was completed. All pertinent positives were mentioned in the HPI. PHYSICAL EXAMINATION GENERAL: At this time, Mr. Banuelos is a 63-year-old male. He is alert and oriented, resting on the stretcher in the emergency room. He is in no acute distress. VITAL SIGNS: Blood pressure 104/66, heart rate 70, respirations 18, O2 saturation 95%, temperature was 97.5. HEENT: Head is atraumatic, normocephalic. Eyes: EOMs are intact. Sclerae anicteric and not pale. Pupils are 2 mm, equal and reactive to light. NECK: Supple. LUNGS: Clear to auscultation bilaterally. No wheezes, rales, or rhonchi. CARDIAC: S1, S2. Regular rate and rhythm. No murmurs, rubs, or gallops. ABDOMEN: Soft and nontender. Bowel sounds are present x4. EXTREMITIES: He is able to move all 4 extremities. Pedal pulses are +2 bilaterally. NEUROLOGIC: He is awake, alert, oriented x3. Thought process is intact. He has mild drifting with the right arm. Sensation is diminished in the right arm and right leg. Handgrip is slightly weaker on the right. Push-pull is slightly weaker on the right upper arm. Lxwhuk-qt-dnty is intact. Smile is equal. Tongue is midline. Speech is clear. There is no leg drift. Heel-to- gage is intact. Sensation is decreased in the right leg. leg strength is equal. SKIN: Intact. DIAGNOSTIC STUDIES/LAB DATA: WBCs are 7.8, RBCs 5.16, hemoglobin 16.6, hematocrit is 47, platelet count 279. INR 0.98, APTT was 31. Sodium 134, potassium 4.3, chloride 96, carbon dioxide was 28, anion gap was 10, BUN 13, creatinine 1.31, glucose was 376, lactic acid was 3.8, calcium 9.9. ASTs were 14, ALTs were 17, alkaline phosphatase was 189. Troponin 0.00. Triglycerides were 255, cholesterol 194, LDL was 106. A1c is currently pending. CT of the brain showed no acute intracranial pathology. Chest x-ray, radiologist's impression: No active cardiopulmonary disease. Electrocardiogram showed sinus rhythm at a rate of 77. He does have mild elevation in V2, V3 and aVF, which are consistent with prior EKGs. He had a CTA of the head and neck, radiologist's impression: No internal carotid artery stenosis by NASCET criteria. No aneurysm, vascular malformation , occlusion, or stenosis of the visualized intracranial circulation. ASSESSMENT AND PLAN: Mr. Banuelos is a 63-year-old male with a past medical history significant for type 2 diabetes, hyperlipidemia, hypertension, anxiety, chronic back pain, seasonal allergies and diabetic neuropathy of his bilateral feet, who presented to the emergency room with complaints of right-sided weakness that he woke with at 9 a.m. He will be admitted for observation to [address] [place], [place] [address]etry for: 1. Right-sided numbness/weakness. We will rule out transient ischemic attack versus cerebrovascular accident. The patient did have a CT of the brain and CTA of the head and neck, which were within normal limits. He has an MRI that is currently pending. We will place him on neuro checks q.2 hours. I will get a transthoracic echocardiogram with bubble study. He did have Plavix 300 mg loading dose in the emergency room and aspirin 325 mg p.o. We will continue him on aspirin 81 mg p.o. daily and Plavix 75 mg p.o. daily. We will start statin therapy if patient rules in for a stroke or TIA. He is currently taking Lopid 600 mg BID, will continue this for now, may need to adjust this medication as the combination of lopid and statins can increase the risk of rhabdomyolysis. He was also seen in consultation by Neurology, who will follow along in his care. 2. Type 2 diabetes. I will hold his metformin. I will place him on lispro sliding scale and continue his Lantus 12 units b.i.d. He will have fingersticks a.c. and h.s. 3. Hypertension. He will continue on lisinopril 5 mg p.o. daily as previously prescribed. 4. Hyperlipidemia. I am going to place him on atorvastatin 40 mg p.o. daily. 5. Anxiety. I will continue him on citalopram 20 mg p.o. daily. 6. FEN: He can have a consistent carbohydrate diet. 7. Code status: He is a full code. 8. DVT prophylaxis: I will place him on Lovenox subcu q.24 hours. TIME SPENT: Time spent on this admission was 60 minutes, greater than half that time was spent at the bedside reviewing events leading thus far to hospitalization, performing physical exam, and reviewing my plan of care. I have discussed this with my attending, Dr. Luda Tomlinson; she is in agreement with my plan. DEIDRA ARELLANO, SELINA [id number]/[facility] #: [id number] LONA
[2019-02-16] MEDS: Gabapentin CAP(*) 300 MG PO SCH (21:20)
[2019-02-16] MEDS: Gemfibrozil TAB* 600 MG PO SCH (21:21)
[2019-02-16] MEDS: Pantoprazole TAB * 40 MG TAB PO SCH (21:21)
[2019-02-16 23:59] LABS: Urine Appearance Clear; Urine Bilirubin Negative (Negative); Urine Blood Negative (Negative); Urine Color Yellow; Urine Glucose 3+(>=500 mg/dL) (Negative); Urine Ketones Trace (Negative); Urine Nitrite Negative (Negative); Urine Protein Negative (Negative); Urine Specific Gravity 1.037 (1.010-1.030); Urine Urobilinogen Negative (Negative)
[2019-02-17 05:13] LABS: ABS Eosinophils 0.2 10^3/ul (0-0.6); ABS Lymphocytes 1.6 10^3/ul (1.0-4.8); ABS Monocytes 0.5 10^3/ul (0-0.8); ABS Neutrophils 2.1 10^3/ul (1.5-7.7); Eosinophil % 4.9 %; Hematocrit 40 % (42-52); Hemoglobin 14.3 g/dL (14.0-18.0); Lymphocyte % 36.1 %; Mean Corpuscular HGB Conc 36 g/dL (31-36); Mean Corpuscular Hemoglobin 32 pg (27-31); Mean Corpuscular Volume 89 fL (80-94); Mean Platelet Volume 7.8 fL (7.4-10.4); Nucleated Red Blood Cells % 0.1; Platelet Count 214 10^3/uL (150-450); Red Blood Count 4.48 10^6 /uL (4.18-5.48); Red Cell Distribution Width 13 % (10-15); White Blood Count 4.6 10^3/uL (3.5-10.8)
[2019-02-17 05:33] LABS: Albumin 3.8 g/dL (3.2-5.2); Albumin/Globulin Ratio 1.9 (1-3); BUN/Creatinine Ratio 15.4 (8-20); Calcium 8.7 mg/dL (8.6-10.3); EGFR African American 102.1 (>60); EGFR Non-African American 84.4 (>60); Indirect Bilirubin 0.3 mg/dL (0.3-1.0); Potassium 3.9 mmol/L (3.5-5.0); Total Bilirubin 0.4 mg/dL (0.2-1.0); Total Protein 5.8 g/dL (6.4-8.9)
[2019-02-17] MEDS: Insulin GLARGINE(*) 1 UNITS UNIT SUBCUT SCH ×2 (08:47→21:44)
[2019-02-17] MEDS: Insulin REGULAR(*) 1 UNITS UNIT SUBCUT SCH ×3 (08:48→17:37)
[2019-02-17] MEDS: Citalopram TAB* 20 MG PO SCH (08:50)
[2019-02-17] MEDS: Gabapentin CAP(*) 300 MG PO SCH ×3 (08:50→21:43)
[2019-02-17] MEDS: metFORMIN* 1,000 MG TAB PO SCH ×2 (08:50→21:43)
[2019-02-17] MEDS: Pantoprazole TAB * 40 MG TAB PO SCH ×2 (08:50→21:44)
[2019-02-17] MEDS: Aspirin EC TAB* 81 MG TAB.EC PO SCH (08:51)
[2019-02-17] MEDS: Clopidogrel TAB* 75 MG PO SCH (08:51)
[2019-02-17] MEDS: Gemfibrozil TAB* 600 MG PO SCH ×2 (08:52→21:44)
[2019-02-17] MEDS ORDERED: Pneumococcal *Vac Polyvalent 0.5 ML VIAL IM ONE (09:00)
[2019-02-17] MEDS ORDERED: Lisinopril TAB* 5 MG PO SCH (09:00)
[2019-02-17] MEDS: NS 0.9% 1000 ML** 1,000 ML IV SCH ×2 (09:07→22:58)
--- NOTE | 2019-02-17 16:09 | CONS ---
NEUROLOGY FOLLOWUP CONSULTATION: DATE OF FOLLOWUP: 02/17/19 HOSPITALIST: Deidra Arellano NP LOCATION: He is in inpatient, 444. CHIEF COMPLAINT: Right-sided numbness. INTERVAL HISTORY: Since yesterday Mr. Banuelos feels his right leg numbness is somewhat improved other than he has chronic neuropathy in his feet. He still feels his right hand and arm are somewhat numb. He thinks it might be a little bit clumsy. He has no numbness on his face. He has no new symptoms to report. MEDICATIONS: Reviewed and he is on, 1. Aspirin 81 mg p.o. daily. 2. Atorvastatin 20 mg p.o. daily. 3. Citalopram 20 mg p.o. daily. 4. Clopidogrel 75 mg p.o. daily. 5. Lovenox 40 mg subcutaneous q. 24 hours. 6. Gabapentin 300 mg p.o. t.i.d. 7. Gemfibrozil 600 mg p.o. b.i.d. 8. Sliding scale insulin. 9. Metformin 1000 mg p.o. b.i.d. 10. Pantoprazole 40 mg p.o. b.i.d. PHYSICAL EXAMINATION: He is well-nourished and well-hydrated. Temperature 98.8 , blood pressure 111/71, heart rate 60 and regular. Respiratory rate is 20 and oxygen saturation is 99% on room air. Heart tones are normal. There are no cervical bruits. Neurological Exam: Eye movements are full. Visual angela are full to confrontation. Facial musculature and sensation are intact and symmetric. Speech is clear without dysarthria. On motor exam, he has normal strength in the upper extremities proximally and distally. He has normal strength in the legs proximally. Finger taps are bit slow in both hands, little worse on the right. There is no tremor. He is alert and oriented and a fair historian. Memory is mildly impaired. Language is fluent. LABORATORY DATA: Includes an MRI of the brain, which reveals a small vessel acute left thalamic infarction. I reviewed the images personally. He had a CT scan of the brain for reasons I cannot discern this morning, which was normal. Other laboratory data notable for chemistry profile today with a sodium of 133, glucose remains elevated at 303, hemoglobin A1c from 02/16/19 was 11.9%. His cholesterol on 02/16/19 was 194, LDL 106. 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 Typical risk factors are diabetes and hypertension. In his case, he has uncontrolled diabetes. He is currently on dual antiplatelet therapy and to remain on that for 30 days. He then can be switched to aspirin monotherapy. He has been appropriately restarted on his statin and his blood sugars are being addressed. Echocardiogram has reportedly been done, but there is no report yet in the chart. Unless he has a cardioembolic source evident on telemetry warranting a switch to anticoagulation he will remain on antiplatelet therapy. He may benefit from some OT and physical therapy going forward. [id number]/[facility] #: [id number] LONA
--- NOTE | 2019-02-17 17:21 | PN ---
Subjective Date of Service: 02/17/19 Interval History: Patient complained of right leg weakness worsening. He recalled that the weakness started same time as his numbness yesterday morning. Around 10am, patient had an episode of diaphoresis with generalized weakness, PE found to be weaker on left side, recovered within 1 hour. Objective Active Medications: Acetaminophen (Tylenol Tab*) 650 mg PO Q4H PRN PRN Reason: MILD PAIN or TEMP > 100.4 Aspirin (Aspirin Ec Tab*) 81 mg PO DAILY [facility] Last Admin: 02/17/19 08:51 Dose: 81 mg Atorvastatin Calcium (Lipitor*) 20 mg PO 1700 [facility] Citalopram Hydrobromide (Celexa Tab*) 20 mg PO DAILY [facility] Last Admin: 02/17/19 08:50 Dose: 20 mg Clopidogrel Bisulfate (Plavix Tab*) 75 mg PO DAILY [facility] Last Admin: 02/17/19 08:51 Dose: 75 mg Enoxaparin Sodium (Lovenox(*)) 40 mg SUBCUT Q24H [facility] Last Admin: 02/16/19 17:52 Dose: 40 mg Gabapentin (Neurontin Cap(*)) 300 mg PO TID [facility] Last Admin: 02/17/19 13:03 Dose: 300 mg Gemfibrozil (Lopid Tab*) 600 mg PO BID [facility] Last Admin: 02/17/19 08:52 Dose: 600 mg Sodium Chloride (Ns 0.9% 1000 Ml) 1,000 mls @ 75 mls/hr IV PER RATE [facility] Stop: 02/18/19 21:19 Last Admin: 02/17/19 09:07 Dose: 75 mls/hr Insulin Glargine (Lantus(*)) 12 units SUBCUT BID [facility] Last Admin: 02/17/19 08:47 Dose: 12 units Insulin Human Regular (Insulin Regular(*)) 8 units SUBCUT AC [facility] Last Admin: 02/17/19 13:03 Dose: 8 unit Metformin HCl (Glucophage*) 1,000 mg PO BID [facility] Last Admin: 02/17/19 08:50 Dose: 1,000 mg Pantoprazole Sodium (Protonix Tab*) 40 mg PO BID [facility] Last Admin: 02/17/19 08:50 Dose: 40 mg Vital Signs - 8 hr 02/17/19 02/17/19 02/17/19 09:35 12:36 13:03 Temperature 98.3 F 98.6 F Pulse Rate 67 65 Respiratory 24 20 18 Rate Blood Pressure 135/73 115/66 (mmHg) O2 Sat by Pulse 98 97 Oximetry 02/17/19 02/17/19 13:04 15:53 Temperature 97.8 F Pulse Rate 68 Respiratory 18 18 Rate Blood Pressure 122/79 (mmHg) O2 Sat by Pulse 99 Oximetry Oxygen Devices in Use Now: None Exam: General - NAD, sitting on bed comfortably Eyes - PERRLA, EOM intact HEENT- no abnormality Lymph Nodes - No lymphadenopathy Cardiovascular - RRR no m/r/g, no JVD, no carotid bruits Lungs - Clear to auscltation, no use of acessory muscles, no crackles or wheezes. Skin - No rashes, skin warm and dry, no erythematous areas Abdomen - Normal bowel sounds, abdomen soft and nontender Extremities - No edema, cyanosis or clubbing Musculo Skeletal - normal range of motion, no swollen or erythematous joints. Neurological Alert and oriented x 3, CN 2-12 grossly intact. Sensation: right side decreased sensation Muscle strength: LL right side 4- both proximally and distally, left side 5; UL 5 bilaterally Psychiatry- mood stable. Result Diagrams: 02/17/19 04:54 02/17/19 04:54 Diagnostic Imaging: CT brain normal Assess/Plan/Problems-Billing Assessment: 63 y/o male with history of HTN, T2DM with diabetic neuropathy, HLD, presented with right sided numbness, found to have left thalamus stroke. He was found to have new right sided LL weakness which is concerning for stroke extension. - Patient Problems (1) Stroke Current Visit: Yes Status: Acute Code(s): I63.9 - CEREBRAL INFARCTION, UNSPECIFIED SNOMED Code(s): 054193812 Comment: - left thalamus stroke, due to small vessel disease - start DAPT and statin (start at 20mg, need to be increased once pt tolerated) - new right sided weakness concerning for stroke extension - IV drip, goal of BP < 160/100mmhg. (2) Diabetic neuropathy Current Visit: No Status: Acute Code(s): E11.40 - TYPE 2 DIABETES MELLITUS WITH DIABETIC NEUROPATHY, UNSP SNOMED Code(s): 102513792 Comment: - Continue gabapentin (3) Hyperlipidemia Current Visit: No Status: Acute Code(s): E78.5 - HYPERLIPIDEMIA, UNSPECIFIED SNOMED Code(s): 00391398 Comment: - Continue gemfibrozil and atorvastatin (4) HTN (hypertension) Current Visit: No Status: Chronic Code(s): I10 - ESSENTIAL (PRIMARY) HYPERTENSION SNOMED Code(s): 23084558 Comment: - Normotensive, SBP 120s - Continue amlodipine, lisinopril (5) Type II diabetes mellitus Current Visit: No Status: Chronic Comment: - Hyperglycemia up in the 300s on admission, but no evidence of HHNS - HbA1c pending - start sliding scale (6) DVT prophylaxis Current Visit: No Status: Acute Code(s): QJM3213 - SNOMED Code(s): 342426130 Comment: - Lovenox SQ (7) Full code status Current Visit: No Status: Acute Code(s): Z78.9 - OTHER SPECIFIED HEALTH STATUS SNOMED Code(s): 717911671 Comment: Status and Disposition: Inpatient Medicine. Attestation Documenting Resident: Ritu Choudhury Supervising Physician: Eri Rizvi Attending/Supervising Physician Comment: Awaiting TTE report. Will need STR Continue dual antiplatelets plus statin. Attestation: This service has been performed in part by a resident under the direction of a teaching physician.I, Eri Rizvi, performed the service, or was physically present during the critical, or hopper portions of the service, furnished by the resident. I participated in the management of the patient.
[2019-02-17] MEDS ORDERED: Dextrose 50% VIAL 50 ml IV PUSH PRN (17:28)
[2019-02-17] MEDS: Enoxaparin(*) 40 MG/0.4 ML SYR SUBCUT SCH (17:37)
[2019-02-17] MEDS: Atorvastatin* 20 MG TAB PO SCH (17:37)
[2019-02-17 18:56] LABS: Hepatitis C Antibody Negative (Negative)
--- NOTE | 2019-02-17 20:05 | ECHO ---
*[facility]* [place] [address] Fax #: [phone] Transthoracic Echocardiogram Patient: Jack Banuelos : 1955 Study Date: 02/17/2019 Age: 63 Gender: M HR: 62 bpm Height: 67 in /170.2 cm BSA: 2.03 m^2 Weight: 186.6 lb /84.8 kg BMI: 29.3 kg/m^2 *Sheet Tailer: * Megan Pyle RDCS RN *Referring Physician: * Deidra Arellano *Reading Physician: * Ted Shoemaker MD Indications: TIA. History: Risk factors: Hypertension. Diabetes mellitus. Dyslipidemia. Conclusions Summary: - Left ventricle: The cavity size is normal. Wall thickness is mildly increased. Systolic function is normal. The estimated ejection fraction is 55-60%. - Atrial septum: No defect or patent foramen ovale is identified. - Mitral valve: There is trace regurgitation. - Aortic valve: There is trace regurgitation. - Tricuspid valve: There is trace regurgitation. - Aortic root: The aortic root is mildly dilated at 3.9 cm. - No previous echocardiogram available. Study data: Transthoracic echocardiogram. Procedure: Transthoracic echocardiography was performed. Image quality was fair. The study was technically limited due to body habitus. Intravenous agitated saline was administered. A bubble study was performed. Complete 2D, spectral Doppler, and color flow Doppler. Location: Bedside. Patient status: Observation. Patient room number: 444-01. Rhythm: Normal sinus rhythm. Findings Left ventricle: The cavity size is normal. Wall thickness is mildly increased. Systolic function is normal. The estimated ejection fraction is 55-60%. Wall motion is normal; there are no regional wall motion abnormalities. There is no consistent Doppler evidence of clinically significant diastolic dysfunction. Right ventricle: The cavity size is normal. Systolic function is normal. Left atrium: The atrium is normal in size. Right atrium: The atrium is normal in size. Atrial septum: No defect or patent foramen ovale is identified. Bubble study was negative on Images 106 and 107. Mitral valve: The leaflets are mildly thickened. There is no evidence of stenosis. There is trace regurgitation. Aortic valve: The valve is trileaflet. The leaflets are mildly thickened. There is no evidence of stenosis. There is trace regurgitation. Tricuspid valve: The valve is structurally normal. There is no evidence of stenosis. There is trace regurgitation. Pulmonic valve: The valve is structurally normal. There is no evidence of stenosis. There is trace regurgitation. Aorta: Aortic root: The aortic root is mildly dilated at 3.9 cm. Ascending aorta: The ascending aorta is not dilated. Aortic arch: The aortic arch is not dilated. Pericardium: There is no pericardial effusion. Pulmonary arteries: The main pulmonary artery is normal-sized. Systolic pressure is within the normal range, estimated to be 31 mm Hg. Systemic veins: Inferior vena cava: Not visualized. Measurements Left ventricle Value Ref Aortic valve Value Ref MONTSERRAT, LAX (L) 3.5 cm 4.2 - Peak v, S 1.5 m/sec ----- 5.8 VTI, S 28.9 cm ----- ESD, LAX (L) 2.4 cm 2.5 - Mean grad, S 5.5 mm Hg ----- 4.0 Peak grad, S 9.0 mm Hg ----- FS 31 % 25 - 43 LVOT/AV, VTI ratio 0.88 ----- PW, ED (H) 1.2 cm 0.6 - 1.0 Mitral valve Value Ref IVS/PW, ED 1.03 -------- Peak E 0.61 m/sec ----- E', lat martha, TDI 11.0 cm/sec >=10.0 Peak A 0.77 m/sec --- -- E/e', lat martha, TDI 6 -------- Decel time 362 ms ----- E', med martha, TDI 9.0 cm/sec >=7.0 Peak E/A ratio 0.79 --- -- E/e', med martha, TDI 7 -------- E', avg, TDI 10.0 cm/sec -------- Pulmonic valve Value Ref E/e', avg, TDI 6 <=14 Peak v, S 0.83 m/sec --- -- Peak grad, S 2.7 mm Hg ----- LVOT Value Ref Peak fauzia, S 1.21 m/sec -------- Tricuspid valve Value Ref VTI, S 25.4 cm -------- TR peak v 2.4 m/sec <=2.8 Peak grad, S 6 mm Hg -------- Peak RV-RA grad, S 23 mm Hg ----- Mean grad, S 3 mm Hg -------- Aortic root Value Ref Ventricular septum Value Ref Root diam 3.9 cm <4.2 IVS, ED (H) 1.2 cm 0.6 - 1.0 Ascending aorta Value Ref AAo AP diam, S 3.3 cm ----- Right ventricle Value Ref MONTSERRAT, LAX 2.5 cm -------- Aortic arch Value Ref MONTSERRAT minor ax, A4C 3.4 cm 1.9 - Arch diam 3.3 cm ----- mid 3.5 Pressure, S 31 mm Hg -------- Decending aorta Value Ref Lissa peak fauzia 0.55 m/sec ----- Left atrium Value Ref SI dim ES, LAX 3.1 cm -------- Pulmonary artery Value Ref ML dim, A4C 3.8 cm -------- Pressure, S 28.3 mm Hg ----- SI dim, A4C 5.2 cm -------- Vol, ES, 2-p 51 ml -------- Vol/bsa, ES, 2-p 25 ml/m^2 16 - 34 Right atrium Value Ref ML dim, ES, A4C 3.4 cm 2.6 - 4.4 SI dim, ES, A4C 4.8 cm 3.4 - 5.3 Legend: (L) and (H) dayami values outside specified reference range. Prepared and electronically signed by Ted Shoemaker MD 02/17/2019 20:04
[2019-02-17] MEDS: Insulin LISPRO* 1 UNITS UNIT SUBCUT SCH (21:33)
[2019-02-18] MEDS: Acetaminophen TAB* 325 MG PO PRN ×2 (03:35→08:59)
[2019-02-18 05:25] LABS: ABS Eosinophils 0.2 10^3/ul (0-0.6); ABS Lymphocytes 1.7 10^3/ul (1.0-4.8); ABS Monocytes 0.7 10^3/ul (0-0.8); ABS Neutrophils 3.8 10^3/ul (1.5-7.7); Eosinophil % 3.6 %; Hematocrit 40 % (42-52); Hemoglobin 14.2 g/dL (14.0-18.0); Mean Corpuscular HGB Conc 36 g/dL (31-36); Mean Corpuscular Hemoglobin 32 pg (27-31); Mean Corpuscular Volume 90 fL (80-94); Mean Platelet Volume 8.1 fL (7.4-10.4); Nucleated Red Blood Cells % 0.1; Platelet Count 203 10^3/uL (150-450); Red Blood Count 4.45 10^6 /uL (4.18-5.48); Red Cell Distribution Width 13 % (10-15); White Blood Count 6.4 10^3/uL (3.5-10.8)
[2019-02-18 05:46] LABS: BUN/Creatinine Ratio 11.8 (8-20); Calcium 8.6 mg/dL (8.6-10.3); EGFR African American 110.5 (>60); EGFR Non-African American 91.3 (>60); Potassium 3.8 mmol/L (3.5-5.0)
[2019-02-18] MEDS: Aspirin EC TAB* 81 MG TAB.EC PO SCH (08:59)
[2019-02-18] MEDS: Clopidogrel TAB* 75 MG PO SCH (08:59)
[2019-02-18] MEDS: metFORMIN* 1,000 MG TAB PO SCH ×2 (09:00→20:22)
[2019-02-18] MEDS: Gabapentin CAP(*) 300 MG PO SCH ×3 (09:00→20:22)
[2019-02-18] MEDS: Pantoprazole TAB * 40 MG TAB PO SCH ×2 (09:00→20:22)
[2019-02-18] MEDS: Citalopram TAB* 20 MG PO SCH (09:00)
[2019-02-18] MEDS: Insulin GLARGINE(*) 1 UNITS UNIT SUBCUT SCH ×2 (09:00→20:23)
[2019-02-18] MEDS: Insulin REGULAR(*) 1 UNITS UNIT SUBCUT SCH ×3 (09:00→17:00)
[2019-02-18] MEDS: Insulin LISPRO* 1 UNITS UNIT SUBCUT SCH ×4 (09:01→20:23)
[2019-02-18] MEDS: Gemfibrozil TAB* 600 MG PO SCH (11:35)
--- NOTE | 2019-02-18 14:17 | CONS ---
NEUROLOGY CONSULT FOLLOWUP: DATE OF FOLLOWUP: 02/18/19 HOSPITALISTS: Dr. Choudhury and Dr. Rizvi. LOCATION: He is an inpatient in room 444. CHIEF COMPLAINT: Right-sided numbness. INTERVAL HISTORY: Since yesterday, Mr. Banuelos feels well. He does not feel any weakness. He still notes a little bit of numbness in the right hand and little bit in the right distal leg. MEDICATIONS: Reviewed and he is on: 1. Aspirin 81 mg p.o. q. day. 2. Clopidogrel 75 mg p.o. q. day. 3. Atorvastatin 20 mg p.o. q. day. 4. Citalopram 20 mg p.o. q. day. 5. Lovenox 40 mg subcutaneous q. 24 hours. 6. Gabapentin 300 mg p.o. t.i.d. 7. Gemfibrozil 600 mg p.o. b.i.d. 8. Sliding scale insulin. 9. Metformin 1000 mg p.o. b.i.d. 10. Protonix 40 mg p.o. b.i.d. PHYSICAL EXAM: He is well nourished and well hydrated. Temperature 98.1, blood pressure 117/66, heart rate 70 and regular. Respiratory rate is 20 and oxygen saturation is 98% on room air. Heart tones are normal. There are no cervical bruits. Neurological Exam: Eye movements are normal. Visual angela are full to confrontation. Facial musculature is intact and symmetric. Palate and tongue are normal and speech is clear. Facial sensation to pin is symmetric on both sides. On sensory exam, he has symmetrical pin discrimination in the proximal lower extremities and in both hands. Light touch is intact as well. He has normal strength proximally and distally in the upper and lower extremities. He is alert and oriented and a good detailed historian. Memory is intact and language is fluent. LABORATORY DATA: Notable for a hezau-od-pwvk glucose today of 210. CBC is unremarkable. Chemistry profile is otherwise unremarkable today. IMPRESSION AND PLAN: Impression is that of small vessel left thalamic infarction causing the lacunar syndrome of pure sensory stroke. He is stable and is on dual antiplatelet therapy and has been started on a statin. His diabetes is now under much improved control. I think he can be discharged on dual antiplatelet therapy for 30 days with plan to switch him to aspirin monotherapy after that. I can see him in my office in 3 to 4 weeks to make those adjustments. Clearly, he needs to be compliant with his medical regimen, specifically in terms of his diabetes control. I agree with his statin therapy and that will need to be monitored as an outpatient as well. [id number]/[facility] #: [id number] MTDVera
--- NOTE | 2019-02-18 14:53 | PN ---
Hospitalist Progress Note Date of Service: 02/18/19 Subjective: Patient is feeling good today and said his sensation on the right side is improving. Objective: Vitals: bp 115/77, HR 56, resp 18 O2 100% on room air, temp is 97.2 General - sitting on bed comfortably Eyes - PERRLA, EOM intact HEENT- no abnormality Lymph Nodes - No lymphadenopathy Cardiovascular - RRR no m/r/g, no JVD, no carotid bruits Lungs - Clear to auscultation, no use of accessory muscles, no crackles or wheezes. Skin - No rashes, skin warm and dry, no erythematous areas Abdomen - Normal bowel sounds, abdomen soft and nontender Extremities - No edema, cyanosis or clubbing Musculo Skeletal - normal range of motion, no swollen or erythematous joints. Neurological Alert and oriented, CN 2-12 grossly intact. Sensation: right side decreased sensation on the medial aspect of his hand. Muscle strength: strength was normal on both sides for upper and lower extremities. HCT: 40 L MCH: 32 H Glucose: 167 H POC glucose: 171 H MRI: MR head without contrast showed acute infarct in the left thalamus measuring 6 mm. Assesment: 63 year old male with history of HTN, T2DM with diabetic neuropathy, HLD, he presented with right sided numbness, and was found to have left thalamus stroke. He was found to have new right sided LL weakness which is concerning for stroke extension. Plan: (1) Stroke left thalamus stroke, due to small vessel disease - start DAPT and statin (start at 20mg, need to be increased once pt tolerated. Goal is to get statin at 40 mg.) -On aspirin 81 mg PO daily and clopidogrel 75 mg PO daily and atorvastatin 20 mg PO 1700 (2) Diabetic neuropathy - Continue gabapentin 300 mg PO TID [facility] (3) Hyperlipidemia - Continue gemfibrozil 600 mg PO BID and atorvastatin 20 mg PO 1700 (5) Type II diabetes mellitus -insulin glargine 12 units subcut BID -insulin human lispro sliding scale. -metformin: 1,000 mg PO BID -Goal is to keep glucose below 180 while in the hospital. (6) DVT prophylaxis - Lovenox 40 mg subcut Q24H (7) depression -Citalopram 20 mg PO daily (8) (GERD) -Pantoprazole sodium 40 mg PO BID [facility]
[2019-02-18] MEDS: Atorvastatin* 20 MG TAB PO SCH (16:59)
[2019-02-18] MEDS: Enoxaparin(*) 40 MG/0.4 ML SYR SUBCUT SCH (17:00)
--- NOTE | 2019-02-18 17:59 | PN ---
Subjective Date of Service: 02/18/19 Interval History: Patient felt his right leg numbness subsided, only some right hand numbness remained. No more weakness, no recurrence of dizziness. Objective Active Medications: Acetaminophen (Tylenol Tab*) 650 mg PO Q4H PRN PRN Reason: MILD PAIN or TEMP > 100.4 Last Admin: 02/18/19 08:59 Dose: 650 mg Aspirin (Aspirin Ec Tab*) 81 mg PO DAILY [facility] Last Admin: 02/18/19 08:59 Dose: 81 mg Atorvastatin Calcium (Lipitor*) 20 mg PO 1700 [facility] Last Admin: 02/18/19 16:59 Dose: 20 mg Citalopram Hydrobromide (Celexa Tab*) 20 mg PO DAILY [facility] Last Admin: 02/18/19 09:00 Dose: 20 mg Clopidogrel Bisulfate (Plavix Tab*) 75 mg PO DAILY [facility] Last Admin: 02/18/19 08:59 Dose: 75 mg Dextrose (Dextrose 50% Vial 50 Ml*) 25 ml IV PUSH .FOR FS < 60 - SS PRN PRN Reason: FS < 60 Enoxaparin Sodium (Lovenox(*)) 40 mg SUBCUT Q24H [facility] Last Admin: 02/18/19 17:00 Dose: 40 mg Gabapentin (Neurontin Cap(*)) 300 mg PO TID [facility] Last Admin: 02/18/19 13:20 Dose: 300 mg Gemfibrozil (Lopid Tab*) 600 mg PO BID [facility] Last Admin: 02/18/19 11:35 Dose: 600 mg Sodium Chloride (Ns 0.9% 1000 Ml) 1,000 mls @ 75 mls/hr IV PER RATE [facility] Stop: 02/18/19 21:19 Last Admin: 02/17/19 22:58 Dose: 75 mls/hr Insulin Glargine (Lantus(*)) 12 units SUBCUT BID [facility] Last Admin: 02/18/19 09:00 Dose: 12 units Insulin Human Lispro (Humalog*) 0 units SUBCUT ACHS [facility]; Protocol Last Admin: 02/18/19 17:00 Dose: 1 unit Insulin Human Regular (Insulin Regular(*)) 8 units SUBCUT AC [facility] Last Admin: 02/18/19 17:00 Dose: 8 unit Metformin HCl (Glucophage*) 1,000 mg PO BID [facility] Last Admin: 02/18/19 09:00 Dose: 1,000 mg Pantoprazole Sodium (Protonix Tab*) 40 mg PO BID [facility] Last Admin: 02/18/19 09:00 Dose: 40 mg Vital Signs - 8 hr 02/18/19 02/18/19 02/18/19 11:15 13:20 15:15 Temperature 98.1 F 98.3 F Pulse Rate 70 64 Respiratory 20 18 18 Rate Blood Pressure 117/66 121/70 (mmHg) O2 Sat by Pulse 98 98 Oximetry Oxygen Devices in Use Now: None Exam: General - NAD, sitting on recliner Eyes - PERRLA, EOM intact HEENT- no abnormality Lymph Nodes - No lymphadenopathy Cardiovascular - RRR no m/r/g, no JVD, no carotid bruits Lungs - Clear to auscltation, no use of acessory muscles, no crackles or wheezes. Skin - No rashes, skin warm and dry, no erythematous areas Abdomen - Normal bowel sounds, abdomen soft and nontender Extremities - No edema, cyanosis or clubbing Musculo Skeletal - normal range of motion, no swollen or erythematous joints. Neurological Alert and oriented x 3, CN 2-12 grossly intact. Sensation: right side decreased sensation Muscle strength: 5 overall Psychiatry- mood stable. Result Diagrams: 02/18/19 04:44 02/18/19 04:44 Diagnostic Imaging: CT brain normal Assess/Plan/Problems-Billing Assessment: 63 y/o male with history of HTN, T2DM with diabetic neuropathy, HLD, presented with right sided numbness, found to have left thalamus stroke. - Patient Problems (1) Stroke Current Visit: Yes Status: Acute Code(s): I63.9 - CEREBRAL INFARCTION, UNSPECIFIED SNOMED Code(s): 437719343 Comment: - left thalamus stroke, due to small vessel disease - neurological function improving - start DAPT and statin-> increase statin to 40mg since patient tolerated well - off iv drip (2) Diabetic neuropathy Current Visit: No Status: Acute Code(s): E11.40 - TYPE 2 DIABETES MELLITUS WITH DIABETIC NEUROPATHY, UNSP SNOMED Code(s): 223939311 Comment: - Continue gabapentin (3) Hyperlipidemia Current Visit: No Status: Acute Code(s): E78.5 - HYPERLIPIDEMIA, UNSPECIFIED SNOMED Code(s): 93516640 Comment: - Continue gemfibrozil and atorvastatin (4) HTN (hypertension) Current Visit: No Status: Chronic Code(s): I10 - ESSENTIAL (PRIMARY) HYPERTENSION SNOMED Code(s): 65054558 Comment: - Normotensive, SBP 120s - Continue amlodipine, lisinopril (5) Type II diabetes mellitus Current Visit: No Status: Chronic Comment: - Hyperglycemia up in the 300s on admission, but no evidence of HHNS - HbA1c 11.9 - increase lantus to 14U bid, continue regular insulin 8U AC (6) DVT prophylaxis Current Visit: No Status: Acute Code(s): MMP5446 - SNOMED Code(s): 209834001 Comment: - Lovenox SQ (7) Full code status Current Visit: No Status: Acute Code(s): Z78.9 - OTHER SPECIFIED HEALTH STATUS SNOMED Code(s): 000367845 Comment: Status and Disposition: Inpatient Medicine. Plan to go to [facility] once placement confirmed Attestation Documenting Resident: Ritu Choudhury Supervising Physician: Eri Rizvi Attending/Supervising Physician Comment: medically stable for discharge; awaiting STR Attestation: This service has been performed in part by a resident under the direction of a teaching physician.I, Eri Rizvi, performed the service, or was physically present during the critical, or hopper portions of the service, furnished by the resident. I participated in the management of the patient.
[2019-02-18] MEDS ORDERED: Ondansetron INJ* 2 MG/ML VIAL IV ONE (20:00)
--- NOTE | 2019-02-19 08:22 | PN ---
Hospitalist Progress Note Date of Service: 02/19/19 Subjective: Patient is feeling good today and said his sensation on the right side has improved a lot. He saw OT and PT yesterday and thought it helped. Objective: Vitals: bp 114/68, HR 58, resp 20, O2 96% on room air, temp is 97.4 General Patient is laying on bed comfortably. Eyes - PERRLA, EOM intact HEENT- no abnormality Lymph Nodes - No lymphadenopathy Cardiovascular - RRR no m/r/g, no JVD, no carotid bruits Lungs - Clear to auscultation, no use of accessory muscles, no crackles or wheezes. Skin - No rashes, skin warm and dry, no erythematous areas Abdomen - Normal bowel sounds, abdomen soft and nontender Extremities - No edema, cyanosis or clubbing Musculo Skeletal - normal range of motion, no swollen or erythematous joints. Neurological Alert and oriented, CN 2-12 grossly intact. Sensation: right side decreased sensation on the medial aspect of his hand and lateral aspect of right foot. Muscle strength: strength was normal on both sides for upper and lower extremities. POC Glucose is 121 H today but on 02/18/19 was 201 H, 210 H, 171 H MRI: MR head without contrast showed acute infarct in the left thalamus measuring 6 mm. Assesment: 63 year old male with history of HTN, T2DM with diabetic neuropathy, HLD, he presented with right sided numbness, and was found to have left thalamus stroke. He was found to have new right sided LL weakness which is concerning for stroke extension. Plan: (1) Stroke left thalamus stroke, due to small vessel disease - On DAPT and statin -On aspirin 81 mg PO daily and clopidogrel 75 mg PO daily and atorvastatin 40 mg PO 1700 -PT/OT was started on him. (2) Diabetic neuropathy - Continue gabapentin 300 mg PO TID [facility] (3) Hyperlipidemia - Atorvastatin 40 mg PO 1700 (5) Type II diabetes mellitus -insulin glargine 14 units subcut BID -insulin human lispro sliding scale. -insulin human regular 8 units subcut -metformin: 1,000 mg PO BID -Goal is to keep glucose below 180 while in the hospital. (6) DVT prophylaxis - Lovenox 40 mg subcut Q24H (7) depression -Citalopram 20 mg PO daily (8) (GERD) -Pantoprazole sodium 40 mg PO BID [facility]
[2019-02-19] MEDS: Insulin LISPRO* 1 UNITS UNIT SUBCUT SCH ×4 (08:35→21:05)
[2019-02-19] MEDS: Aspirin EC TAB* 81 MG TAB.EC PO SCH (09:06)
[2019-02-19] MEDS: Pantoprazole TAB * 40 MG TAB PO SCH (09:06)
[2019-02-19] MEDS: Gabapentin CAP(*) 300 MG PO SCH ×3 (09:07→21:03)
[2019-02-19] MEDS: Clopidogrel TAB* 75 MG PO SCH (09:07)
[2019-02-19] MEDS: metFORMIN* 1,000 MG TAB PO SCH ×2 (09:07→21:03)
[2019-02-19] MEDS: Insulin REGULAR(*) 1 UNITS UNIT SUBCUT SCH ×3 (09:08→17:25)
[2019-02-19] MEDS: Insulin GLARGINE(*) 1 UNITS UNIT SUBCUT SCH ×2 (09:08→21:04)
[2019-02-19] MEDS: Citalopram TAB* 20 MG PO SCH (09:13)
--- NOTE | 2019-02-19 12:54 | PN ---
Subjective Date of Service: 02/19/19 Interval History: Patient felt himself back to normal except residual numbness on right lateral hand and right lateral foot. No other new neurological sx. Glucose 121-209 yesterday with home dose insulin regimen Objective Active Medications: Acetaminophen (Tylenol Tab*) 650 mg PO Q4H PRN PRN Reason: MILD PAIN or TEMP > 100.4 Last Admin: 02/18/19 08:59 Dose: 650 mg Aspirin (Aspirin Ec Tab*) 81 mg PO DAILY [facility] Last Admin: 02/19/19 09:06 Dose: 81 mg Atorvastatin Calcium (Lipitor*) 40 mg PO 1700 [facility] Citalopram Hydrobromide (Celexa Tab*) 20 mg PO DAILY [facility] Last Admin: 02/19/19 09:13 Dose: 20 mg Clopidogrel Bisulfate (Plavix Tab*) 75 mg PO DAILY [facility] Last Admin: 02/19/19 09:07 Dose: 75 mg Dextrose (Dextrose 50% Vial 50 Ml*) 25 ml IV PUSH .FOR FS < 60 - SS PRN PRN Reason: FS < 60 Enoxaparin Sodium (Lovenox(*)) 40 mg SUBCUT Q24H [facility] Last Admin: 02/18/19 17:00 Dose: 40 mg Gabapentin (Neurontin Cap(*)) 300 mg PO TID [facility] Last Admin: 02/19/19 09:07 Dose: 300 mg Insulin Glargine (Lantus(*)) 14 units SUBCUT BID [facility] Last Admin: 02/19/19 09:08 Dose: 14 units Insulin Human Lispro (Humalog*) 0 units SUBCUT [facility]; Protocol Last Admin: 02/19/19 08:35 Dose: Not Given Insulin Human Regular (Insulin Regular(*)) 8 units SUBCUT AC [facility] Last Admin: 02/19/19 09:08 Dose: 8 unit Metformin HCl (Glucophage*) 1,000 mg PO BID [facility] Last Admin: 02/19/19 09:07 Dose: 1,000 mg Pantoprazole Sodium (Protonix Tab*) 40 mg PO BID [facility] Last Admin: 02/19/19 09:06 Dose: 40 mg Vital Signs - 8 hr 02/19/19 02/19/19 07:59 09:07 Temperature 98.1 F Pulse Rate 54 Respiratory 16 18 Rate Blood Pressure 104/61 (mmHg) O2 Sat by Pulse 99 Oximetry Oxygen Devices in Use Now: None Exam: General - NAD, sitting on recliner Eyes - PERRLA, EOM intact HEENT- no abnormality Lymph Nodes - No lymphadenopathy Cardiovascular - RRR no m/r/g, no JVD, no carotid bruits Lungs - Clear to auscultation, no use of acessory muscles, no crackles or wheezes. Skin - No rashes, skin warm and dry, no erythematous areas Abdomen - Normal bowel sounds, abdomen soft and nontender Extremities - No edema, cyanosis or clubbing Musculo Skeletal - normal range of motion, no swollen or erythematous joints. Neurological Alert and oriented x 3, CN 2-12 grossly intact. Sensation:decreased sensation on right little finger and toe Muscle strength: 5 overall Psychiatry- mood stable. Result Diagrams: 02/18/19 04:44 02/18/19 04:44 Diagnostic Imaging: CT brain normal Assess/Plan/Problems-Billing Assessment: 63 y/o male with history of HTN, T2DM with diabetic neuropathy, HLD, presented with right sided numbness, found to have left thalamus stroke. - Patient Problems (1) Stroke Current Visit: Yes Status: Acute Code(s): I63.9 - CEREBRAL INFARCTION, UNSPECIFIED SNOMED Code(s): 487699169 Comment: - left thalamus stroke, due to small vessel disease - neurological function improving - on DAPT and statin - CTA no stenosis, TTE normal (2) Diabetic neuropathy Current Visit: No Status: Acute Code(s): E11.40 - TYPE 2 DIABETES MELLITUS WITH DIABETIC NEUROPATHY, UNSP SNOMED Code(s): 068358156 Comment: - Continue gabapentin (3) Hyperlipidemia Current Visit: No Status: Acute Code(s): E78.5 - HYPERLIPIDEMIA, UNSPECIFIED SNOMED Code(s): 99895115 Comment: - Continue gemfibrozil and atorvastatin (4) HTN (hypertension) Current Visit: No Status: Chronic Code(s): I10 - ESSENTIAL (PRIMARY) HYPERTENSION SNOMED Code(s): 67059861 Comment: - Normotensive, SBP 120s - Continue amlodipine, lisinopril (5) Type II diabetes mellitus Current Visit: No Status: Chronic Comment: - Hyperglycemia up in the 300s on admission, but no evidence of HHNS - HbA1c 11.9 - increase lantus to 14U bid, continue regular insulin 8U AC (6) DVT prophylaxis Current Visit: No Status: Acute Code(s): WKG3440 - SNOMED Code(s): 722674304 Comment: - Lovenox SQ (7) Full code status Current Visit: No Status: Acute Code(s): Z78.9 - OTHER SPECIFIED HEALTH STATUS SNOMED Code(s): 151655834 Comment: Status and Disposition: Inpatient Medicine. Plan to go to [facility] once placement confirmed Attestation Documenting Resident: Ritu Choudhury Supervising Physician: Eri Rizvi Attending/Supervising Physician Comment: Improving neurologic deficits. Glucose with better control on increased lantus. Medically stable for discharge, awaiting short term rehab. Attestation: This service has been performed in part by a resident under the direction of a teaching physician.I, Eri Rizvi, performed the service, or was physically present during the critical, or hopper portions of the service, furnished by the resident. I participated in the management of the patient.
[2019-02-19] MEDS: Atorvastatin* 40 MG TAB PO SCH (18:09)
[2019-02-19] MEDS: Enoxaparin(*) 40 MG/0.4 ML SYR SUBCUT SCH (18:09)
[2019-02-20 08:06] LABS: Albumin 3.9 g/dL (3.2-5.2); Albumin/Globulin Ratio 1.9 (1-3); BUN/Creatinine Ratio 10.1 (8-20); EGFR African American 92.7 (>60); EGFR Non-African American 76.6 (>60); Globulin 2.1 g/dL (2-4); Indirect Bilirubin 0.5 mg/dL (0.3-1.0); Potassium 3.9 mmol/L (3.5-5.0); Total Bilirubin 0.6 mg/dL (0.2-1.0)
[2019-02-20] MEDS: Insulin LISPRO* 1 UNITS UNIT SUBCUT SCH ×4 (09:16→21:00)
[2019-02-20] MEDS: Insulin REGULAR(*) 1 UNITS UNIT SUBCUT SCH ×3 (09:27→17:36)
[2019-02-20] MEDS: Insulin GLARGINE(*) 1 UNITS UNIT SUBCUT SCH ×2 (09:27→21:00)
[2019-02-20] MEDS: metFORMIN* 1,000 MG TAB PO SCH ×2 (09:28→21:00)
[2019-02-20] MEDS: Aspirin EC TAB* 81 MG TAB.EC PO SCH (09:28)
[2019-02-20] MEDS: Citalopram TAB* 20 MG PO SCH (09:28)
[2019-02-20] MEDS: Gabapentin CAP(*) 300 MG PO SCH ×3 (09:29→21:38)
[2019-02-20] MEDS: Clopidogrel TAB* 75 MG PO SCH (09:29)
--- NOTE | 2019-02-20 13:58 | PN ---
Subjective Date of Service: 02/20/19 Interval History: Feels great today. No complaints. Feels almost completely back to normal; complains of slight medial right hand numbness. Has been walking the hallways with no difficulty. Had a low BG yesterday at 65 but did not feel any symptoms. Objective Active Medications: Acetaminophen (Tylenol Tab*) 650 mg PO Q4H PRN PRN Reason: MILD PAIN or TEMP > 100.4 Last Admin: 02/18/19 08:59 Dose: 650 mg Aspirin (Aspirin Ec Tab*) 81 mg PO DAILY [facility] Last Admin: 02/20/19 09:28 Dose: 81 mg Atorvastatin Calcium (Lipitor*) 40 mg PO 1700 [facility] Last Admin: 02/19/19 18:09 Dose: 40 mg Citalopram Hydrobromide (Celexa Tab*) 20 mg PO DAILY [facility] Last Admin: 02/20/19 09:28 Dose: 20 mg Clopidogrel Bisulfate (Plavix Tab*) 75 mg PO DAILY [facility] Last Admin: 02/20/19 09:29 Dose: 75 mg Dextrose (Dextrose 50% Vial 50 Ml*) 25 ml IV PUSH .FOR FS < 60 - SS PRN PRN Reason: FS < 60 Enoxaparin Sodium (Lovenox(*)) 40 mg SUBCUT Q24H [facility] Last Admin: 02/19/19 18:09 Dose: 40 mg Gabapentin (Neurontin Cap(*)) 300 mg PO TID [facility] Last Admin: 02/20/19 12:54 Dose: 300 mg Insulin Glargine (Lantus(*)) 14 units SUBCUT BID [facility] Last Admin: 02/20/19 09:27 Dose: 14 units Insulin Human Lispro (Humalog*) 0 units SUBCUT ACHS [facility]; Protocol Last Admin: 02/20/19 12:54 Dose: 4 unit Insulin Human Regular (Insulin Regular(*)) 8 units SUBCUT AC [facility] Last Admin: 02/20/19 12:54 Dose: 8 unit Metformin HCl (Glucophage*) 1,000 mg PO BID [facility] Last Admin: 02/20/19 09:28 Dose: 1,000 mg Vital Signs - 8 hr 02/20/19 02/20/19 02/20/19 08:53 09:29 11:25 Temperature 98.1 F 97.5 F Pulse Rate 65 64 Respiratory 16 16 16 Rate Blood Pressure 142/65 125/71 (mmHg) O2 Sat by Pulse 98 98 Oximetry 02/20/19 12:54 Temperature Pulse Rate Respiratory 16 Rate Blood Pressure (mmHg) O2 Sat by Pulse Oximetry Oxygen Devices in Use Now: None Appearance: alert, well appearing, sitting in chair eating lunch Eyes: No Scleral Icterus Ears/Nose/Mouth/Throat: NL Teeth, Lips, Gums Neck: NL Appearance and Movements; NL JVP Respiratory: Symmetrical Chest Expansion and Respiratory Effort Cardiovascular: NL Sounds; No Murmurs; No JVD, RRR Abdominal: NL Sounds; No Tenderness; No Distention Lymphatic: No Cervical Adenopathy Extremities: No Edema Skin: No Rash or Ulcers Neurological: Alert and Oriented x 3, NL Sensation, NL Gait, NL Muscle Strength and Tone Result Diagrams: 02/18/19 04:44 02/20/19 07:30 Diagnostic Imaging: CT brain normal Assess/Plan/Problems-Billing Assessment: 63 y/o male with history of HTN, T2DM with diabetic neuropathy, HLD, presented with right sided numbness, found to have left thalamus stroke. - Patient Problems (1) Stroke Current Visit: Yes Status: Acute Code(s): I63.9 - CEREBRAL INFARCTION, UNSPECIFIED SNOMED Code(s): 804474560 Comment: acute left thalamic CVA; did not meet criteria for tpa at admission due to time frame improving; PT recommending STR continue asa, plavix, statin CTA showed no stenosis, TTE with bubble was unremarkable, and no tele events (2) Type II diabetes mellitus Current Visit: No Status: Chronic Comment: HbA1c 11.9 now with good control on slight increases in home doses suggesting dietary indiscretion at home vs. med nonadherence had a low BG yesterday evening--continue achs fingersticks, may need to reduce if any more lows (3) Diabetic neuropathy Current Visit: No Status: Acute Code(s): E11.40 - TYPE 2 DIABETES MELLITUS WITH DIABETIC NEUROPATHY, UNSP SNOMED Code(s): 653260881 Comment: Continue gabapentin (4) Hyperlipidemia Current Visit: No Status: Acute Code(s): E78.5 - HYPERLIPIDEMIA, UNSPECIFIED SNOMED Code(s): 91202154 Comment: Continue gemfibrozil and atorvastatin (5) HTN (hypertension) Current Visit: No Status: Chronic Code(s): I10 - ESSENTIAL (PRIMARY) HYPERTENSION SNOMED Code(s): 24190480 Comment: normotensive off antihypertensive meds (6) DVT prophylaxis Current Visit: No Status: Acute Code(s): TNO7541 - SNOMED Code(s): 776423998 Comment: Oscar (7) Full code status Current Visit: No Status: Acute Code(s): Z78.9 - OTHER SPECIFIED HEALTH STATUS SNOMED Code(s): 880570727 Comment: Status and Disposition: Awaiting STR placement
[2019-02-20] MEDS: Atorvastatin* 40 MG TAB PO SCH (17:36)
[2019-02-20] MEDS: Enoxaparin(*) 40 MG/0.4 ML SYR SUBCUT SCH (17:37)
[2019-02-20] MEDS ORDERED: Dextrose 50% Syringe 50 ML* 25 GM/50 ML SYRINGE IV PUSH PRN (21:22)
[2019-02-20] MEDS: LORazepam TAB(*) 1 MG PO PRN (21:37)
[2019-02-20] MEDS: Acetaminophen TAB* 325 MG PO PRN (21:37)
--- NOTE | 2019-02-20 22:32 | DS ---
CC: Dr. Crooks * DISCHARGE SUMMARY: DATE OF ADMISSION: 02/16/19 ANTICIPATED DATE OF DISCHARGE: 02/21/19 PRINCIPAL DISCHARGE DIAGNOSIS: Acute thalamic cerebrovascular accident. SECONDARY DISCHARGE DIAGNOSES: 1. Diabetes. 2. Hyperlipidemia. 3. Diabetic neuropathy. MEDICATIONS AT DISCHARGE: 1. Lantus 14 units b.i.d. 2. Regular insulin 8 units a.c. 3. Cialis 20 mg daily p.r.n. 4. Citalopram 20 mg daily. 5. Lorazepam 1 mg b.i.d., p.r.n. anxiety. 6. Gabapentin 300 mg t.i.d. 7. Gemfibrozil 600 mg b.i.d. 8. Metformin 1000 mg b.i.d. 9. Tizanidine 2 mg b.i.d. 10. Aspirin 81 mg daily. 11. Clopidogrel 75 mg daily. 12. Atorvastatin 40 mg daily. HOSPITAL COURSE BY PROBLEM: 1. Acute thalamic cerebrovascular accident. Mr. Banuelos presented to the emergency department approximately 5 hours after waking up with left sided numbness. He was a code lee in the emergency department and was evaluated by Dr. [place]. He was deemed not to be a TPA candidate and an initial brain CT was unremarkable. A head and neck CTA showed no internal carotid artery stenosis, no aneurysm, vascular formation occlusion or stenosis of the visualized intracranial circulation. An MRI was subsequently obtained and showed a 6 mm left acute thalamic cerebrovascular accident. He was admitted for supportive care. The remainder of his workup was unremarkable. A transthoracic echocardiogram with bubble study was negative and Dr. Colorado followed along suggesting that the etiology of his cerebrovascular accident was a small vessel disease and lacunar syndrome resulting in a pure sensory stroke. He was started on dual antiplatelet therapy and is to continue this for 30 days and then continue on aspirin only. We also started him on atorvastatin which he tolerated well so far. His symptoms continue to improve with physical therapy, who noted him to be weak and recommended short-term rehab. Authorization from insurance is pending at the time of this dictation. 2. Type 2 diabetes. He was noted to have uncontrolled diabetes with an A1c of 11. He was hyperglycemic during this admission and his insulin doses were increased with better control prior to discharge. 3. Hypertension. His lisinopril was held at admission to allow for permissive hypertension in the setting of an acute cerebrovascular accident. His lisinopril did not needed to be restarted and he remained normotensive off of it. DISPOSITION: Mr. Banuelos is being discharged to short-term rehab. The location of short-term rehab is pending at the time of this dictation and will be determined on 02/21/19 with case management assistance. CONDITION AT THE TIME OF DISCHARGE: Stable. [id number]/[facility] #: [id number] MTDD
[2019-02-21] MEDS: Insulin LISPRO* 1 UNITS UNIT SUBCUT SCH ×2 (08:49→12:23)
[2019-02-21] MEDS: Clopidogrel TAB* 75 MG PO SCH (08:50)
[2019-02-21] MEDS: Insulin REGULAR(*) 1 UNITS UNIT SUBCUT SCH ×2 (08:50→12:23)
[2019-02-21] MEDS: Insulin GLARGINE(*) 1 UNITS UNIT SUBCUT SCH (08:50)
[2019-02-21] MEDS: Aspirin EC TAB* 81 MG TAB.EC PO SCH (08:50)
[2019-02-21] MEDS: Citalopram TAB* 20 MG PO SCH (08:51)
[2019-02-21] MEDS: Gabapentin CAP(*) 300 MG PO SCH ×2 (08:51→12:23)
[2019-02-21] MEDS: LORazepam TAB(*) 1 MG PO PRN (08:52)
[2019-02-21 14:20] VITALS: BP 121/73
--- NOTE | 2019-02-21 16:10 | DS ---
CC: Dr. Crooks.* DISCHARGE SUMMARY: DATE OF ADMISSION: 02/16/19 DATE OF DISCHARGE: 02/21/19 PRIMARY CARE PROVIDER: Dr. Crooks. DISPOSITION ON DISCHARGE: Home. CONDITION ON DISCHARGE: Stable at the time of discharge. Please see Dr. Rizvi's preliminary discharge diagnosed from 02/20/19 for further details surrounding this patient's hospital stay. PRIMARY DIAGNOSIS: Acute thalamic cerebrovascular accident. SECONDARY DISCHARGE DIAGNOSES: 1. Diabetes 2. Hyperlipidemia. 3. Diabetic neuropathy. HOME MEDICATIONS: 1. Lantus 14 units twice daily. 2. Regular insulin 8 units with meals. 3. Cialis 20 mg daily as needed. 4. Citalopram 20 mg daily. 5. Lorazepam 1 mg twice daily as needed for anxiety. 6. Gabapentin 300 mg 3 times a day. 7. Gemfibrozil 600 mg twice daily. 8. Metformin 1000 mg twice daily. 9. Tizanidine 2 mg twice daily. 10. Aspirin 81 mg daily. 11. Clopidogrel 75 mg daily. 12. Atorvastatin 40 mg daily. HISTORY OF PRESENT ILLNESS/HOSPITAL COURSE: The patient was admitted with acute thalamic cerebrovascular accident 5 hours after waking up with left-sided numbness. He was outside the window for tPA, was thus not a candidate and did not receive it in the emergency room. CTA showed no internal carotid artery stenosis, aneurysm, or vascular malformation occlusion or stenosis. MRI did show 6 mm left acute thalamic CVA. He was admitted for supportive car, likely suspect for etiology of small vessel disease and lacunar syndrome resulting in a pure sensory stroke. He was started on dual antiplatelet therapy, he is to continue for 30 days then discontinue Plavix after 30 days, continue aspirin alone. He was also started on atorvastatin during this hospital stay. His condition is improved on the day of discharge. He had no additional symptoms, seen again by Physical Therapy was able to ambulate without concern for safety at the time of discharge. I discussed with the patient he has no stairs to enter his home, feels comfortable with managing his ADLs and IDLs at home. He is also noted with uncontrolled diabetes with a hemoglobin A1c of 11. Hyperglycemia during the admission as insulin doses were increased for better control. His lisinopril was held on admission for hypotension and allowed for permissive hypertension and was not restarted at the time of discharge as he remained normotensive. At followup please; 1. Discontinue Plavix after 30 days, continue aspirin alone. 2. Continue management of diabetes. 3. Continue to follow cholesterol, adjust as necessary. 4. Adjust blood pressure medications as needed. 5. No other specific labs or vitals that need followup. Reasons to return to the hospital including but limited to recurrent or worsening symptoms including asymmetric weakness or sensory deficits, loss of consciousness, chest pain, shortness of breath, nausea or vomiting, lightheadedness, loss of consciousness or near loss of consciousness, or any bleeding events discussed with the patient, he acknowledged understanding. TIME SPENT: A greater than 45 minutes was spent on discharge with the patient, greater than half was spent [id number] with the patient. [id number]/[id number] #: [id number] LONA
== END 2019-02-21 16:15 | disposition home or self-care (01) | DRG 66 ==
LOC: ED 13:40 → MEDTELE 16:04 → OBSVTOIN 02-17 11:00
PROVIDERS: ADMIT Internal Medicine; ATTEND Internal Medicine
DX: I63.81 Other cerebral infarction due to occlusion or stenosis of small artery (principal); E11.42 Type 2 diabetes mellitus with diabetic polyneuropathy; E78.5 Hyperlipidemia, unspecified; E11.65 Type 2 diabetes mellitus with hyperglycemia; I95.9 Hypotension, unspecified; R20.0 Anesthesia of skin; I10 Essential (primary) hypertension; F41.9 Anxiety disorder, unspecified; G89.29 Other chronic pain; M54.9 Dorsalgia, unspecified; J30.2 Other seasonal allergic rhinitis; K21.9 Gastro-esophageal reflux disease without esophagitis; M19.90 Unspecified osteoarthritis, unspecified site; F43.10 Post-traumatic stress disorder, unspecified; F32.9 Major depressive disorder, single episode, unspecified; R29.702 NIHSS score 2; G83.11 Monoplegia of lower limb affecting right dominant side; F25.9 Schizoaffective disorder, unspecified; Z79.4 Long term (current) use of insulin; Z79.82 Long term (current) use of aspirin; Z79.02 Long term (current) use of antithrombotics/antiplatelets; Z91.048 Other nonmedicinal substance allergy status; Z87.891 Personal history of nicotine dependence; Z81.1 Family history of alcohol abuse and dependence; Z23 Encounter for immunization
CPT/HCPCS: 36415; 70450; 70496; 70498; 70551; 71045; 80048; 80053; 80061; 80076; 81003; 82550; 82947; 83036; 83605; 84484; 85025; 85610; 85730; 86803; 90732; 93005; 93306; 96372; 99284; A9270-GY; G0378; G8978-GP-CH; G8978-GP-CK; G8979-GP-CH; G8979-GP-CI; G8980-GP-CH; G8987-GO-CK; G8988-GO-CH; J1650; J2405; Q9967

== ENCOUNTER 2019-06-07 15:37 | Emergency (ER) | payer MEDICARE ==
[2019-06-07 16:29] LABS: ABS Eosinophils 0.1 10^3/ul (0-0.6); ABS Monocytes 0.9 10^3/ul (0-0.8); ABS Neutrophils 5.3 10^3/ul (1.5-7.7); Eosinophil % 1.2 %; Hematocrit 40 % (42-52); Hemoglobin 14.2 g/dL (14.0-18.0); Lymphocyte % 13.7 %; Mean Corpuscular HGB Conc 36 g/dL (31-36); Mean Corpuscular Hemoglobin 32 pg (27-31); Mean Corpuscular Volume 90 fL (80-94); Mean Platelet Volume 8.1 fL (7.4-10.4); Nucleated Red Blood Cells % 0.1; Platelet Count 246 10^3/uL (150-450); Red Blood Count 4.45 10^6 /uL (4.18-5.48); Red Cell Distribution Width 13 % (10-15); White Blood Count 7.3 10^3/uL (3.5-10.8)
[2019-06-07 17:04] LABS: Albumin 4.2 g/dL (3.2-5.2); Albumin/Globulin Ratio 1.6 (1-3); BUN/Creatinine Ratio 12.7 (8-20); C Reactive Protein 160.45 mg/L (<8.01); Calcium 9.4 mg/dL (8.6-10.3); EGFR African American 75.7 (>60); EGFR Non-African American 62.6 (>60); Globulin 2.6 g/dL (2-4); Potassium 4.3 mmol/L (3.5-5.0); Total Bilirubin 0.7 mg/dL (0.2-1.0); Total Protein 6.8 g/dL (6.4-8.9)
[2019-06-07] MEDS ORDERED: Insulin REGULAR(*) 1 UNITS UNIT SUBCUT ONE (18:43)
[2019-06-07] MEDS ORDERED: NS 0.9% 1000 ML** 1,000 ML IV ONE (18:44)
[2019-06-07] MEDS ORDERED: Insulin GLARGINE(*) 1 UNITS UNIT SUBCUT ONE (18:44)
--- NOTE | 2019-06-07 19:04 | ED ---
HPI Diabetic - HPI Summary HPI Summary: 63-year-old male presents with dizziness today. He states he feels off since he ran out of insulin 3 weeks. States that he got kicked out of his primary as he missed too many appointments. He states that he does have an appointment with a new primary tomorrow. He denies any chest pain or shortness of breath. No nausea vomiting. He denies any urgency and frequency. Denies any abdominal pain. He states he just feels off. Has been taking his metformin. - History Of Current Complaint Chief Complaint: EDDiabeticProb Time Seen by Provider: 06/07/19 18:35 - Allergies/Home Medications Allergies/Adverse Reactions: Allergies Allergy/AdvReac Type Severity Reaction Status Date / Time wool Allergy Rash And Verified 10/24/18 20:00 Itching PMH/Surg Hx/FS Hx/Imm Hx Endocrine/Hematology History: Reports: Hx Diabetes Denies: Hx Anticoagulant Therapy Cardiovascular History: Reports: Hx Hypertension Denies: Hx Pacemaker/ICD GI History: Reports: Hx Gastroesophageal Reflux Disease History: Denies: Hx Renal Disease Musculoskeletal History: Reports: Hx Arthritis, Hx Back Problems, Other Musculoskeletal History - ARTHRITIS, back surgery Sensory History: Denies: Hx Contacts or Glasses, Hx Hearing Aid Opthamlomology History: Denies: Hx Contacts or Glasses Neurological History: Reports: Other Neuro Impairments/Disorders - PAIN CLINIC PATIENT Psychiatric History: Reports: Hx Anxiety, Hx Depression, Hx Post Traumatic Stress Disorder Denies: Hx Eating Disorder, Hx Panic Disorder, Hx of Violent Episodes Against Others - Surgical History Surgery Procedure, Year, and Place: BONE FRAGMENT REMOVED 2000-LUMBAR; APPENDECTOMY 1984; - Immunization History Date of Tetanus Vaccine: unknown Infectious Disease History: No Infectious Disease History: Denies: Traveled Outside the [place] in Last 30 Days - Family History Known Family History: Positive: Diabetes, Other - ETOH abuse (father) - Social History Alcohol Use: None Alcohol Amount: sober x6 years Hx Substance Use: No Substance Use Type: Reports: None Hx Tobacco Use: No Smoking Status (MU): Never Smoked Tobacco Have You Smoked in the Last Year: No Review of Systems Negative: Fever Negative: Chest Pain Negative: Shortness Of Breath Neurological: Other - lightheaded All Other Systems Reviewed And Are Negative: Yes Physical Exam Triage Information Reviewed: Yes Vital Signs On Initial Exam: Initial Vitals Temp Pulse Resp BP Pulse Ox 96.6 F 80 18 159/116 98 06/07/19 15:39 06/07/19 15:39 06/07/19 15:39 06/07/19 15:39 06/07/19 15:39 Vital Signs Reviewed: Yes Appearance: Positive: Well-Appearing Skin: Positive: Warm, Dry Head/Face: Positive: Normal Head/Face Inspection Eyes: Positive: Normal, EOMI, NATHAN, Conjunctiva Clear ENT: Positive: Normal ENT inspection, Pharynx normal, TMs normal Respiratory/Lung Sounds: Positive: Clear to Auscultation, Breath Sounds Present Cardiovascular: Positive: Normal, RRR Abdomen Description: Positive: Nontender, Soft Bowel Sounds: Positive: Present Musculoskeletal: Positive: Normal Neurological: Positive: Normal Psychiatric: Positive: Normal Diagnostics - Vital Signs Vital Signs Temp Pulse Resp BP Pulse Ox 06/07/19 17:37 99.1 F 71 18 133/78 97 06/07/19 15:39 96.6 F 80 18 159/116 98 - Laboratory Lab Results: Lab Results 06/07/19 06/07/19 06/07/19 Range/Units 16:17 16:17 16:17 WBC 7.3 (3.5-10.8) 10^3/uL RBC 4.45 (4.18-5.48) 10^6 /uL Hgb 14.2 (14.0-18.0) g/dL Hct 40 L (42-52) % MCV 90 (80-94) fL MCH 32 H (27-31) pg MCHC 36 (31-36) g/dL RDW 13 (10-15) % Plt Count 246 (150-450) 10^3/uL MPV 8.1 (7.4-10.4) fL Neut % (Auto) 72.4 % Lymph % (Auto) 13.7 % [place] % (Auto) 12.3 % Eos % (Auto) 1.2 % Baso % (Auto) 0.4 % Absolute Neuts (auto) 5.3 (1.5-7.7) 10^3/ul Absolute Lymphs (auto) 1.0 (1.0-4.8) 10^3/ul Absolute Monos (auto) 0.9 H (0-0.8) 10^3/ul Absolute Eos (auto) 0.1 (0-0.6) 10^3/ul Absolute Basos (auto) 0.0 (0-0.2) 10^3/ul Absolute Nucleated RBC 0.0 10^3/ul Nucleated RBC % 0.1 VBG pH (7.32-7.43) VBG pCO2 (41-51) mmHg VBG pO2 (35-45) mmHg VBG HCO3 (24-28) mmol/L VBG O2 Saturation (70-80) % VBG Base Excess (0.0-4.0) mmol/L Sodium 133 L (135-145) mmol/L Potassium 4.3 (3.5-5.0) mmol/L Chloride 96 L (101-111) mmol/L Carbon Dioxide 32 (22-32) mmol/L Anion Gap 5 (2-11) mmol/L BUN 15 (6-24) mg/dL Creatinine 1.18 H (0.67-1.17) mg/dL Est GFR ( Amer) 75.7 (>60) Est GFR (Non-Af Amer) 62.6 (>60) BUN/Creatinine Ratio 12.7 (8-20) Glucose 325 H (70-100) mg/dL Lactic Acid 1.1 (0.5-2.0) mmol/L Calcium 9.4 (8.6-10.3) mg/dL Total Bilirubin 0.70 (0.2-1.0) mg/dL AST 20 (13-39) U/L ALT 28 (7-52) U/L Alkaline Phosphatase 144 H (34-104) U/L C-Reactive Protein 160.45 H (<8.01) mg/L Total Protein 6.8 (6.4-8.9) g/dL Albumin 4.2 (3.2-5.2) g/dL Globulin 2.6 (2-4) g/dL Albumin/Globulin Ratio 1.6 (1-3) / Range/Units 16:17 WBC (3.5-10.8) 10^3/uL RBC (4.18-5.48) 10^6 /uL Hgb (14.0-18.0) g/dL Hct (42-52) % MCV (80-94) fL MCH (27-31) pg MCHC (31-36) g/dL RDW (10-15) % Plt Count (150-450) 10^3/uL MPV (7.4-10.4) fL Neut % (Auto) % Lymph % (Auto) % [place] % (Auto) % Eos % (Auto) % Baso % (Auto) % Absolute Neuts (auto) (1.5-7.7) 10^3/ul Absolute Lymphs (auto) (1.0-4.8) 10^3/ul Absolute Monos (auto) (0-0.8) 10^3/ul Absolute Eos (auto) (0-0.6) 10^3/ul Absolute Basos (auto) (0-0.2) 10^3/ul Absolute Nucleated RBC 10^3/ul Nucleated RBC % VBG pH 7.41 (7.32-7.43) VBG pCO2 53 H (41-51) mmHg VBG pO2 < 38.0 (35-45) mmHg VBG HCO3 28.8 H (24-28) mmol/L VBG O2 Saturation 31.3 L (70-80) % VBG Base Excess 7.3 H (0.0-4.0) mmol/L Sodium (135-145) mmol/L Potassium (3.5-5.0) mmol/L Chloride (101-111) mmol/L Carbon Dioxide (22-32) mmol/L Anion Gap (2-11) mmol/L BUN (6-24) mg/dL Creatinine (0.67-1.17) mg/dL Est GFR ( Amer) (>60) Est GFR (Non-Af Amer) (>60) BUN/Creatinine Ratio (8-20) Glucose (70-100) mg/dL Lactic Acid (0.5-2.0) mmol/L Calcium (8.6-10.3) mg/dL Total Bilirubin (0.2-1.0) mg/dL AST (13-39) U/L ALT (7-52) U/L Alkaline Phosphatase (34-104) U/L C-Reactive Protein (<8.01) mg/L Total Protein (6.4-8.9) g/dL Albumin (3.2-5.2) g/dL Globulin (2-4) g/dL Albumin/Globulin Ratio (1-3) Result Diagrams: 06/07/19 16:17 06/07/19 16:17 Lab Statement: Any lab studies that have been ordered have been reviewed, and results considered in the medical decision making process. Re-Evaluation - Re-Evaluation First Eval Re-Evaluation Time: 20:43 Change: Improved Comment: feeling better, dizziness resolve Diabetic Course/Dx - Course Course Of Treatment: 63-year-old male presents with dizziness today. He states he feels off since he ran out of insulin 3 weeks. States that he got kicked out of his primary as he missed too many appointments. He states that he does have an appointment with a new primary tomorrow. He denies any chest pain or shortness of breath. No nausea vomiting. He denies any urgency and frequency. Denies any abdominal pain. He states he just feels off. Has been taking his metformin. On exam has normal neuro exam. wbc normal. Glucose is 325. PH is normal. Gave fluids and insulin. sugar is 301. will discharge with script insulin. told follow up with primary as scheduled for refills and continued script. patient understand and agrees with plan. - Diagnoses Differential Dx: Diabetic Ketoacidosis, Hyperglycemia, Hyperosmolar State Provider Diagnoses: Hyperglycemia Discharge ED - Sign-Out/Discharge Documenting (check all that apply): Patient Departure - Discharge Plan Condition: Good Disposition: HOME Prescriptions: Insulin GLARGINE(*) [Lantus(*)] 14 units SUBCUT BID #1 vial Insulin REGULAR(*) 8 units SUBCUT AC #1 vial Patient Education Materials: Diabetic Hyperglycemia (ED) Referrals: [facility] [Outside] Nayan Mayfield MD [Medical Doctor] - Additional Instructions: follow up with primary as scheduled continue metformin use lantus 14 units twice a day take 8 units regular insulin before meals check sugars and keep a log Return to ED if develop any new or worsening symptoms - Billing Disposition and Condition Condition: GOOD Disposition: Home
[2019-06-07] MEDS ORDERED: Acetaminophen TAB* 325 MG PO ONE (20:19)
[2019-06-07 20:29] LABS: HIV 4th Generation Nonreactive (Nonreactive)
[2019-06-07 20:36] LABS: Urine Appearance Clear; Urine Bilirubin Negative (Negative); Urine Blood Negative (Negative); Urine Color Yellow; Urine Glucose 3+(>=500 mg/dL) (Negative); Urine Ketones 1+ (Negative); Urine Nitrite Negative (Negative); Urine Protein Negative (Negative); Urine Specific Gravity 1.027 (1.010-1.030); Urine Urobilinogen Negative (Negative)
[2019-06-07 21:42] VITALS: BP 155/85
== END 2019-06-07 22:07 | disposition home or self-care (01) ==
LOC: ED 15:37
DX: E11.65 Type 2 diabetes mellitus with hyperglycemia (principal); R42 Dizziness and giddiness; I10 Essential (primary) hypertension; K21.9 Gastro-esophageal reflux disease without esophagitis; Z79.4 Long term (current) use of insulin; F43.10 Post-traumatic stress disorder, unspecified
CPT/HCPCS: 36415; 80053; 81003; 82803; 83036; 83605; 85025; 86140; 87389; 99284; A9270-GY

== ENCOUNTER 2019-08-17 17:28 | Observation (INO) | payer MEDICARE ==
--- OUTSIDE RECORDS SUMMARY | 2019-08-17 17:53 | XMS REPORT | Continuity of Care Document ---
:1955 External Reference #:[id number] Author Name Ritu Choudhury MD (transmitted by agent of provider Tarah Coffey) Address [address], [place] [address] Care Team Providers Name Role Phone Ritu Choudhury MD - Student in an Care Team Information Telecom Network Manager [phone] Organized Health Care Education/Training Program Problems Active Problems Provider Date Hyperlipidemia Ritu Choudhury MD Onset: 06/15/2019 Type II diabetes mellitus uncontrolled Ritu Choudhury MD Onset: 06/15/2019 Cerebral artery occlusion Ritu Choudhury MD Onset: 06/15/2019 Disorders of initiating and maintaining sleep Ritu Choudhury MD Onset: 06/15/2019 Anxiety state Ritu Choudhury MD Onset: 06/15/2019 Social History Type Date Description Comments Sex Unknown ETOH Use Denies alcohol use Tobacco Use Start: Unknown End: Patient is a former Ex-smoker, 13 years, smoker 1.5ppd, stopped at age of [age] Recreational Drug Use Denies Drug Use Smoking Status Reviewed: 06/08/19 Patient is a former Ex-smoker, 13 years, smoker 1.5ppd, stopped at age of [age] Allergies, Adverse Reactions, Alerts Active Allergies Reaction Severity Comments Date Elastic rash 04/12/2010 Medications Active Medications SIG Qnty Indications Ordering Date Provider Trazodone HCL Take 1 Tablet By 90Tablet Ritu Choudhury MD 07/04/2019 50mg Mouth Everyday AT Tablets Bedtime Shingrix inject per 2units Z23 Lavinia Joya MD 06/15/2019 50mcg/0.5ML protocol Suspension Rec Lantus 16 units twice a 30ml Lavinia Joya MD 06/08/2019 100Unit/ML day subcutanous Solution injection Lisinopril 1 by mouth every 90tabs Lavinia Joya MD 06/08/2019 5mg day Tablets Aspir-Low 1 by mouth every Lavinia Joya MD 06/08/[address] Davis 1 by mouth every 30tabs Lavinia Joya MD 06/08/2019 20mg Tablets day Atorvastatin Calcium Take 1 Tablet By 90tabs Lavinia Joya MD 06/08/2019 Mouth Every Day AT 40mg Tablets 5 PM Humulin R 10U before meals 6ml Lavinia Joya MD 06/08/2019 100Unit/ML Solution Metformin HCL take one tablet by 60tabs Nayan Mayfield MD 11/10/2018 1000mg mouth twice a day Tablets Amlodipine Besylate 1 tab per day Unknown 5mg Tablets GNP Omeprazole 1 tablet twice a Unknown 20mg day Tablets Gabapentin 1 by mouth three 180caps Eri Rizvi, 300mg times a day DO Capsules Tizanidine HCL 1 tab by mouth 60tabs Eri Rizvi, 2mg twice per day DO Tablets Insulin 4 times per day, 100units Lavinia Joya MD Syringe/U-100/0.3ML/ use for insulin 29G X 1/2" injection 29G X 1/2" 0.3 ML Misc History Medications Insulin Regular 8 units subcutaneous 3units Lavinia Joya 06/08/2019 - before meals 06/08/2019 Tadalafil one every day as 6tabs Lavinia Joya 06/08/2019 - 20mg needed 06/08/2019 Tablets Lidocaine apply to painful 70.88gm Lavinia Joya 06/08/2019 - 5% areas three times a 06/08/2019 Ointment day as needed Clopidogrel 1 by mouth every day 90tabs Lavinia Joya 06/08/2019 - Bisulfate 06/08/2019 75mg Tablets Trazodone HCL 1 by mouth at 30tabs F51.01 Lavinia Joya 06/08/2019 - 50mg bedtime 07/04/2019 Tablets Immunizations CPT Code Status Date Vaccine Lot # [id number] Given 06/15/2019 Pneumococcal Conjugate Vaccine 13 Valent For [id number] Intramuscular Use Vital Signs Date Vital Result Comment 06/15/2019 8:47am Height 68 inches 5'8" Weight 186.00 lb Heart Rate 72 /min BP Systolic Sitting 133 mmHg BP Diastolic Sitting 78 mmHg Body Temperature 98.2 F O2 % BldC Oximetry 97 % BMI (Body Mass Index) 28.3 kg/m2 06/08/2019 8:38am Height 68 inches 5'8" Weight 187.00 lb Heart Rate 72 /min BP Systolic Sitting 116 mmHg BP Diastolic Sitting 82 mmHg Body Temperature 97.0 F O2 % BldC Oximetry 98 % BMI (Body Mass Index) 28.4 kg/m2 Results Test Acquired Date Facility Test Result H/L Range Note Urine 06/15/2019 [facility] Ur Microalbumin < 15.[address] (mg/L) mg/[place] [address] [phone] Urine Creatinine 33.55 mg/dL Urine Microalbumin/Creatinine TNP <31 1 Basic Metabolic 06/13/2019 [facility] Sodium 138 mmol/L Normal 135-[address] [place] [address] [phone] Potassium 4.7 mmol/L Normal 3.5-5.0 Chloride 100 mmol/L Low 101-111 Co2 Carbon Dioxide 31 mmol/L Normal 22-32 Anion Gap 7 mmol/L Normal 2-11 Glucose 276 mg/dL High 70-100 Blood Urea Nitrogen 14 mg/dL Normal 6-24 Creatinine 0.97 mg/dL Normal 0.67-1.17 BUN/Creatinine Ratio 14.4 Normal 8-20 Calcium 9.2 mg/dL Normal 8.6-10.3 Egfr Non- 78.4 >60 Egfr 94.9 >60 2 Laboratory test 06/13/2019 [facility] C Reactive 47.21 High < 8.01 [address] Protein mg/[place] [address] [phone] CBC Auto Diff 06/13/2019 [facility] White Blood 5.6 Normal 3.5 -10.[address] Count 10^3/[place] [address] [phone] Red Blood Count 4.62 10^6/uL Normal 4.18-5.48 Hemoglobin 14.7 g/dL Normal 14.0-18.0 Hematocrit 41 % Low 42-52 Mean Corpuscular Volume 90 fL Normal 80-94 Mean Corpuscular Hemoglobin 32 pg High 27-31 Mean Corpuscular HGB Conc 36 g/dL Normal 31-36 Red Cell Distribution Width 12 % Normal 10-15 Platelet Count 353 10^3/uL Normal 150-450 Mean Platelet Volume 7.8 fL Normal 7.4-10.4 Abs Neutrophils 3.5 10^3/uL Normal 1.5-7.7 Abs Lymphocytes 1.1 10^3/uL Normal 1.0-4.8 Abs Monocytes 0.7 10^3/uL Normal 0-0.8 Abs Eosinophils 0.2 10^3/uL Normal 0-0.6 Abs Basophils 0.1 10^3/uL Normal 0-0.2 Abs Nucleated RBC 0.0 10^3/uL Granulocyte % 62.5 % Lymphocyte % 20.5 % Monocyte % 12.4 % Eosinophil % 3.6 % Basophil % 1.0 % Nucleated Red Blood Cells % 0.1 Lipid Profile 06/13/2019 [facility] Triglycerides 89 mg/dL 4 (Trig/Chol/HDL) [address] [place] [address] [phone] Cholesterol 77 mg/dL 5 HDL Cholesterol 27.3 mg/dL 6 LDL Cholesterol 32 mg/dL 7 1 Unable to calculate due to low microalbumin 2 Because ethnic data is not always readily available, this report includes an eGFR for both -Americans and non- Americans. The National Kidney Disease Education Program (NKDEP) does not endorse the use of the MDRD equation for patients that are not between the ages of 18 and 70, are , have extremes of body size, muscle mass, or nutritional status, or are non- or non-. According to the National Kidney Foundation, irrespective of diagnosis, the stage of the disease is based on the level of kidney function: Stage Description GFR(mL/min/1.73 m(2)) 1 Kidney damage with normal or decreased GFR 90 2 Kidney damage with mild decrease in GFR 60-89 3 Moderate decrease in GFR 30-59 4 Severe decrease in GFR 15-29 5 Kidney failure <15 (or dialysis) 3 FASTING 4 Desirable: <150 Borderline High: 150-199 High: 200-499 Very High: >500 5 Desirable: <200 Borderline High: 200-239 High: >239 6 Low: <40 Desirable: 40-60 High: >60 7 Desirable: <100 Near Optimal: 100-129 Borderline High: 130-159 High: 160-189 Very High: >189 Procedures Date Code Description Status 02/17/2019 73543 ECHO Transthorasic Realtime 2D W Doppler & Color Flow Completed Hosp 05/25/2009 33317861 Colonoscopy Completed Medical Devices Description No Information Available Encounters Type Date Location Provider Dx Diagnosis Office Visit 06/15/2019 [facility] Ritu Choudhury MD E11.40 Type 2 diabetes 9:00a [facility] - [address] mellitus with diabetic neuropathy, unsp E78.5 Hyperlipidemia, unspecified F51.01 Primary insomnia F41.9 Anxiety disorder, unspecified Z23 Encounter for immunization Office Visit 06/08/2019 9:00a [facility] Choudhury MD E11.40 Type 2 diabetes Medicine - Suite mellitus with R diabetic neuropathy, unsp I10 Essential (primary) hypertension I63.9 Cerebral infarction, unspecified E78.5 Hyperlipidemia, unspecified F51.01 Primary insomnia F41.9 Anxiety disorder, unspecified F33.42 Major depressive disorder, recurrent, in full remission Z12.11 Encounter for screening for malignant neoplasm of colon Z23 Encounter for immunization Office Visit 02/21/2019 9:29a [place] [facility] I63.9 C[facility]bral Assoc,frida Parikh M.D. infarction, Hospitalists unspecified E78.5 Hyperlipidemia, unspecified E11.40 Type 2 diabetes mellitus with diabetic neuropathy, unsp Office Visit 02/20/2019 9:29a [facility] Eri I63.9 Cerebral Assocfrida DO infarction, Hospitalists unspecified E11.40 Type 2 diabetes mellitus with diabetic neuropathy, unsp E78.5 Hyperlipidemia, unspecified I10 Essential (primary) hypertension Office Visit 02/19/2019 9:29a [facility] Eri I63.9 Cerebral Assoc,frida Rizvi DO infarction, Hospitalists unspecified E11.40 Type 2 diabetes mellitus with diabetic neuropathy, unsp E78.5 Hyperlipidemia, unspecified I10 Essential (primary) hypertension Office Visit 02/18/2019 [facility] Calvin Gtz I63.81 Other cereb 7:00a Rakan [place] M.D. infrc due to occls or stenosis of small artery I10 Essential (primary) hypertension E11.40 Type 2 diabetes mellitus with diabetic neuropathy, unsp Office Visit 02/18/2019 9:28a [facility] I63.9 Cerebral Assoc,pc Senner, DO infarction, Hospitalists unspecified E11.40 Type 2 diabetes mellitus with diabetic neuropathy, unsp E78.5 Hyperlipidemia, unspecified I10 Essential (primary) hypertension Office Visit 02/17/2019 Neurohospitalist Calvin Gtz I63.81 Other cereb 7:00a [facility] Kyree [place] [facility] due to occls or stenosis of small artery I10 Essential (primary) hypertension E11.40 Type 2 diabetes mellitus with diabetic neuropathy, unsp 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 (current) use of antithrombotics/antiplatelets Office Visit 02/17/2019 9:27a [facility] I63.9 Cerebral Assoc,pc Senner, DO infarction, Hospitalists unspecified E11.40 Type 2 diabetes mellitus with diabetic neuropathy, unsp E78.5 Hyperlipidemia, unspecified I10 Essential (primary) hypertension Assessments Date Code Description Provider 06/15/2019 E11.40 Type 2 diabetes mellitus with diabetic Ritu Choudhury MD neuropathy, unspecified 06/15/2019 E78.5 Hyperlipidemia, unspecified Ritu Choudhury MD 06/15/2019 F51.01 Primary insomnia Ritu Choudhury MD 06/15/2019 F41.9 Anxiety disorder, unspecified Ritu Choudhury MD 06/15/2019 Z23 Encounter for immunization Ritu Choudhury MD 06/08/2019 E11.40 Type 2 diabetes mellitus with diabetic Ritu Choudhury MD neuropathy, unspecified 06/08/2019 I10 Essential (primary) hypertension Ritu Choudhury MD 06/08/2019 I63.9 Cerebral infarction, unspecified Ritu Choudhury MD 06/08/2019 E78.5 Hyperlipidemia, unspecified Ritu Choudhury MD 06/08/2019 F51.01 Primary insomnia Ritu Choudhury MD 06/08/2019 F41.9 Anxiety disorder, unspecified Ritu Choudhury MD 06/08/2019 F33.42 Major depressive disorder, recurrent, Ritu Choudhury MD in full remission 06/08/2019 Z12.11 Encounter for screening for malignant Ritu Choudhury MD neoplasm of colon 06/08/2019 Z23 Encounter for immunization Ritu Choudhury MD 02/21/2019 I63.9 Cerebral infarction, unspecified Lanre Parikh M.D. 02/21/2019 E78.5 Hyperlipidemia, unspecified Lanre Parikh M.D. 02/21/2019 E11.40 Type 2 diabetes mellitus with diabetic Lanre Parikh M.D. neuropathy, unspecified 02/20/2019 I63.9 Cerebral infarction, unspecified Eri Senner, DO 02/20/2019 E11.40 Type 2 diabetes mellitus with diabetic Eri Senner, DO neuropathy, unspecified 02/20/2019 E78.5 Hyperlipidemia, unspecified Eri Senner, DO 02/20/2019 I10 Essential (primary) hypertension Eri Senner, DO 02/19/2019 I63.9 Cerebral infarction, unspecified Eri Senner, DO 02/19/2019 E11.40 Type 2 diabetes mellitus with diabetic Eri Senner, DO neuropathy, unspecified 02/19/2019 E78.5 Hyperlipidemia, unspecified Eri Senner, DO 02/19/2019 I10 Essential (primary) hypertension Eri Senner, DO 02/18/2019 I63.81 Other cerebral infarction due to Calvin [place] M.D. occlusion or stenosis of small artery 02/18/2019 I63.9 Cerebral infarction, unspecified Eri Senner, DO 02/18/2019 I10 Essential (primary) hypertension Calvin [place] M.D. 02/18/2019 E11.40 Type 2 diabetes mellitus with diabetic Eri Senner, DO neuropathy, unspecified 02/18/2019 E11.40 Type 2 diabetes mellitus with diabetic Calvin [place] M.D. neuropathy, unspecified 02/18/2019 E78.5 Hyperlipidemia, unspecified Eri Senner, DO 02/18/2019 I10 Essential (primary) hypertension Eri Senner, DO 02/17/2019 I63.81 Other cerebral infarction due to Calvin [place] M.D. occlusion or stenosis of small artery 02/17/2019 G45.9 Transient cerebral ischemic attack, Ted Shoemaker M.D. unspecified 02/17/2019 I10 Essential (primary) hypertension Calvin [place] M.D. 02/17/2019 I63.9 Cerebral infarction, unspecified Eri Senner, DO 02/17/2019 E11.40 Type 2 diabetes mellitus with diabetic Calvin [place] M.D. neuropathy, unspecified 02/17/2019 E11.40 Type 2 diabetes mellitus with diabetic Eri Rizvi DO neuropathy, unspecified 02/17/2019 Z79.02 correction (current) use of Calvin [place] M.D. antithrombotics/antiplatelets 02/17/2019 E78.5 Hyperlipidemia, unspecified Eri Rizvi DO 02/17/2019 I10 Essential (primary) hypertension Eri Rizvi DO Plan of Treatment 06/15/2019 - Ritu Choudhury MDE11.40 Type 2 diabetes mellitus with diabetic neuropathy, unspecifiedComments:Increase lantus to 16U bid and humulin 10 three times per day. Make sure you go to see eye doctor for eye check, the referral has been made last visit.Follow up:Follow up in 3 weeks.E78.5 Hyperlipidemia, unspecifiedComments:Your LDL level is 32 which is ideal, HDL level is 27.3 which is low.Continue atorvastatin.F51.01 Primary insomniaComments:Continue btjyamqptT99.9 Anxiety disorder, [id number] Encounter for immunizationNew Medication:Shingrix 50 mcg/0.5ML - inject per protocolComments:Get shingrix in your pharmacy. Functional Status Description No Information Available Mental Status Description No Information Available Referrals Refer to Dr Reason for Referral Status Appt Date Taj Ceballos MD DM eye check Sent 06/23/2019 [address] [place], [place] [id number] [phone] Viv Gant M.D. Screening colonoscopy Received Partial [address] [place] [address] [phone] [facility] anxiety, need counselor Created [address] [place], [place] [id number] [phone]
--- OUTSIDE RECORDS SUMMARY | 2019-08-17 17:53 | XMS REPORT | Continuity of Care Document ---
:1955 External Reference #:[id number] Author Name Tiffani Corona MD Address [address], [place] [address] Care Team Providers Name Role Phone Ritu Choudhury MD - Student in an Care Team Information Meeting Specialist [phone] Organized Health Care Education/Training Program Problems Active Problems Provider Date Hyperlipidemia Ritu Choudhury MD Onset: 06/15/2019 Type II diabetes mellitus uncontrolled Ritu hCoudhury MD Onset: 06/15/2019 Cerebral artery occlusion Ritu [...] Tablets Amlodipine Besylate 1 tab per day 90tabs Cj, MD Tiffani 5mg Tablets GNP Omeprazole 1 tablet twice [...] 06/08/2019 Tablets Lidocaine apply to painful 70.88gm Lvainia Joya 06/08/2019 - 5% areas three times a 06/08/2019 Ointment day as needed Clopidogrel 1 by mouth every day 90tabs Lavinia Joya 06/08/2019 - Bisulfate 06/08/2019 75mg Tablets Trazodone HCL 1 by mouth at 30tabs F51.01 Lavinia Joya 06/08/2019 - 50mg bedtime 07/04/2019 Tablets Immunizations CPT Code Status Date Vaccine Lot # [id number] Given 06/15/2019 Pneumococcal Conjugate Vaccine 13 Valent For [id number] Intramuscular Use Vital Signs Date Vital Result [...] Test Result H/L Range Note Urine 06/15/2019 [facility] Ur Microalbumin < 15.[address] (mg/L) mg/[place] [address] [phone] Urine Creatinine 33.55 mg/dL Urine Microalbumin/Creatinine TNP <31 1 Basic Metabolic 06/13/2019 [facility] Sodium 138 mmol/L Normal 135-[address] [place] [address] [phone] Potassium 4.7 mmol/L Normal 3.5-5.0 Chloride 100 mmol/L Low 101-111 Co2 Carbon Dioxide 31 mmol/L Normal 22-32 Anion Gap 7 mmol/L Normal 2-11 Glucose 276 mg/dL High 70-100 Blood Urea Nitrogen 14 mg/dL Normal 6-24 Creatinine 0.97 mg/dL Normal 0.67-1.17 BUN/Creatinine Ratio 14.4 Normal 8-20 Calcium 9.2 mg/dL Normal 8.6-10.3 Egfr Non- 78.4 >60 Egfr 94.9 >60 2 Laboratory test 06/13/2019 [facility] C Reactive 47.21 High < 8.01 [address] Protein mg/[place] [address] [phone] CBC Auto Diff 06/13/2019 [facility] White Blood 5.6 Normal 3.5 -10.[address] Count 10^3/[place] [address] [phone] Red Blood Count 4.62 10^6/uL Normal 4.18-5.48 [...] Blood Cells % 0.1 Lipid Profile 06/13/2019 [facility] Triglycerides 89 mg/dL 4 (Trig/Chol/HDL) [address] [place] [address] [phone] Cholesterol 77 mg/dL 5 HDL Cholesterol 27.3 [...] >189 Procedures Date Code Description Status 02/17/2019 33645 ECHO Transthorasic Realtime 2D W Doppler & Color Flow Completed Hosp 05/25/2009 [id number] Colonoscopy Completed Medical Devices Description No Information Available Encounters Type Date Location Provider Dx Diagnosis Office Visit 06/15/2019 [employer] [employer] [facility] Ritu Choudhury MD E11.40 Type 2 diabetes 9:00a Medicine - [address] mellitus with diabetic neuropathy, unsp E78.5 Hyperlipidemia, unspecified F51.01 Primary insomnia F41.9 Anxiety disorder, unspecified Z23 Encounter for immunization Office Visit 02/21/2019 9:29a [facility] Lanre I63.9 Cerebral Assoc,frida Parikh M.D. infarction, Hospitalists unspecified E78.5 Hyperlipidemia, unspecified E11.40 Type 2 diabetes mellitus with diabetic neuropathy, unsp Office Visit 02/20/2019 9:29a [facility] Eri I63.9 Cerebral Assoc,frida Rizvi, DO infarction, Hospitalists unspecified E11.40 Type 2 diabetes mellitus with diabetic neuropathy, unsp E78.5 Hyperlipidemia, unspecified I10 Essential (primary) hypertension Office Visit 02/19/2019 9:29a [facility] Eri I63.9 Cerebral Assoc,frida Rizvi, DO infarction, Hospitalists unspecified E11.40 Type 2 diabetes mellitus with diabetic neuropathy, unsp E78.5 Hyperlipidemia, unspecified I10 Essential (primary) hypertension Office Visit 02/18/2019 Neuro[facility] Calvin Hernandez.81 Other cereb 7:00a Rakan [place] M.D. infrc due to occls or stenosis of small artery I10 Essential (primary) hypertension E11.40 Type 2 diabetes mellitus with diabetic neuropathy, unsp Office Visit 02/18/2019 9:28a [facility] Eri I63.9 Cerebral Assoc,frida Rizvi, DO infarction, Hospitalists unspecified E11.40 Type 2 diabetes mellitus with diabetic neuropathy, unsp E78.5 Hyperlipidemia, unspecified I10 Essential (primary) hypertension Office Visit 02/17/2019 Neurohospitalist Calvin S. I63.81 Other cereb 7:00a [facility] K[facility] [place]. 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 antithrombotics/antiplatelets 02/17/2019 E78.5 Hyperlipidemia, unspecified Eri Senner, DO 02/17/2019 I10 Essential (primary) hypertension Eri Rizvi DO Plan of Treatment No Information Available Functional Status Description No Information Available Mental Status Description No Information Available Referrals Refer to Reason for Referral Status Appt Date Taj Ceballos MD DM eye check Sent 06/23/2019 [address] [place] [address] [phone] Viv Gant M.D. Screening colonoscopy Received Partial [address] [place] [address] [phone] [facility] anxiety, need counselor Created [address] [place] [address] [phone]
--- NOTE | 2019-08-17 21:59 | ED ---
Neurological HPI - HPI Summary HPI Summary: Patient is a 63 year-old male presenting to [facility] with a chief complaint of right arm and right lateral leg numbness onset around 1400. He reports a history of stroke with symptoms of numbness in the right extremities about a year ago. He took a nap this afternoon and woke up with new numbness along the right lateral thigh and hip as well as new numbness in the right arm with greater weakness different from his baseline following the stroke. He also notes tingling and numbness in the bilateral feet, although he has a history of diabetes with neuropathy. He denies any slurred speech, headaches, vision changes, fevers, or cough. He is not in any pain. He has been unable to dress/ undress himself. Patient has not taken any medications for treatment. Not currently on any blood thinners. 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 Past medical history includes chronic back pain with lumbar surgery, arthritis, anxiety, depression, PTSD. Nonsmoker, no EtOH, no substance use. Medications reviewed. Allergies noted. - History of Current Complaint Chief Complaint: EDNeurologicalDeficit Stated Complaint: NUMBNESS IN RT ARM PER PT Time Seen by Provider: 08/17/19 21:47 Hx Obtained From: Patient Onset/Duration: Started hours ago, Still Present Timing: Constant Onset Severity: Mild Current Severity: Mild Pain Intensity: 0 Pain Scale Used: 0-10 Numeric Character: Weak, Numbness/Tingling Aggravating: Unknown Alleviating: Nothing Associated Signs and Symptoms: Positive: Weakness, Numbness - right upper and lower extremities. Negative: Visual Changes, Headache, Pain, Impaired Speech, Fever - Additional Pertinent History Primary Care Physician: [id number] - Allergy/Home Medications Allergies/Adverse Reactions: Allergies Allergy/AdvReac Type Severity Reaction Status Date / Time wool Allergy Rash And Verified 10/24/18 20:00 Itching Home Medications: Home Medications Gabapentin CAP(*) [Neurontin 300 CAP(*)] 300 mg PO TID 09/10/17 [History Confirmed 08/18/19] metFORMIN* [Glucophage 1000 MG TAB *] 1,000 mg PO BID 09/10/17 [History Confirmed 08/18/19] tiZANidine TAB* [Zanaflex TAB*] 2 mg PO BID 09/10/17 [History Confirmed 08/18/19 ] Citalopram TAB* [Celexa TAB*] 20 mg PO DAILY 02/16/19 [History Confirmed ] LORazepam TAB(*) [Ativan 1 MG TAB (*)] 1 mg PO BID PRN 02/16/19 [History Confirmed 08/18/19] Lisinopril TAB* [Prinivil TAB 5 MG*] 5 mg PO DAILY 02/16/19 [History Confirmed 08/18/19] Insulin GLARGINE(*) [Lantus 100 units/ml 10 ml VIAL (*)] 14 units SUBCUT BID #1 vial 06/07/19 [Rx Confirmed 08/18/19] Insulin REGULAR(*) [Insulin REGULAR 100 units/ml 3 ml VIAL (*)] 8 units SUBCUT AC #1 vial 06/07/19 [Rx] Aspirin EC TAB* [Ecotrin EC Low Dose 81 MG*] 81 mg PO DAILY #30 tab.ec 08/18/19 [Rx Confirmed 08/18/19] Atorvastatin* [Lipitor 40 MG*] 40 mg PO DAILY 08/18/19 [History Confirmed ] Blood Pressure Test Kit-Wrist [Blood Pressure Kit] 1 each MC DAILY #1 kit [Rx] Clopidogrel TAB* [Plavix TAB*] 75 mg PO DAILY 90 Days #30 tab 08/18/19 [Rx] Insulin REGULAR(*) [Insulin REGULAR 100 units/ml 3 ml VIAL (*)] 10 units SUBCUT AC 08/18/19 [History Confirmed 08/18/19] PMH/Surg Hx/FS Hx/Imm Hx Endocrine/Hematology History: Reports: Hx Diabetes - type II Denies: Hx Anticoagulant Therapy Cardiovascular History: Reports: Hx Hypertension Denies: Hx Pacemaker/ICD GI History: Reports: Hx Gastroesophageal Reflux Disease History: Denies: Hx Renal Disease Musculoskeletal History: Reports: Hx Arthritis, Hx Back Problems, Other Musculoskeletal History - ARTHRITIS, back surgery Sensory History: Denies: Hx Contacts or Glasses, Hx Hearing Aid Opthamlomology History: Denies: Hx Contacts or Glasses Neurological History: Reports: Hx Peripheral Neuropathy - diabetic, Other Neuro Impairments/Disorders - PAIN CLINIC PATIENT Psychiatric History: Reports: Hx Anxiety, Hx Depression, Hx Post Traumatic Stress Disorder Denies: Hx Eating Disorder, Hx Panic Disorder, Hx of Violent Episodes Against Others - Surgical History Surgical History: Yes Surgery Procedure, Year, and Place: BONE FRAGMENT REMOVED 2000-LUMBAR; APPENDECTOMY 1984; - Immunization History Date of Tetanus Vaccine: unknown Infectious Disease History: No Infectious Disease History: Denies: Traveled Outside the [place] in Last 30 Days - Family History Known Family History: Positive: Diabetes, Other - ETOH abuse (father) - Social History Alcohol Use: None Alcohol Amount: sober x6 years Hx Substance Use: No Substance Use Type: Reports: None Hx Tobacco Use: No Smoking Status (MU): Never Smoked Tobacco Have You Smoked in the Last Year: No - Additional Comments History Additional Comments: CVA, diabetes type II, diabetic neuropathy, hypertension, hypercholesterolemia, chronic back pain, back surgery, arthritis, anxiety, depression, PTSD Review of Systems - ROS Summary Review of Systems Summary: Home Medications Medication Instructions Recorded Confirmed Type Gabapentin CAP(*) [Neurontin 300 300 mg PO TID 09/10/17 06/07/19 History CAP(*)] metFORMIN* [Glucophage 1000 MG TAB 1,000 mg PO BID 09/10/17 06/07/19 History *] tiZANidine TAB* [Zanaflex TAB*] 2 mg PO BID 09/10/17 06/07/19 History Citalopram TAB* [Celexa TAB*] 20 mg PO DAILY 02/16/19 06/07/19 History LORazepam TAB(*) [Ativan 1 MG TAB 1 mg PO BID PRN 02/16/19 06/07/19 History (*)] Lidocaine 5% OINT* TUBE [Xylocaine 1 applic TOPICAL SEE INSTRUCTIONS 02/16/19 History 5% Oint*] Lisinopril TAB* [Prinivil TAB 5 5 mg PO DAILY 02/16/19 06/07/19 History MG*] Tadalafil [Cialis] 20 mg PO DAILY PRN 02/16/19 06/07/19 History Aspirin EC TAB* [Ecotrin EC Low 81 mg PO DAILY #30 tab.ec 02/21/19 06/07/19 Rx Dose 81 MG*] Atorvastatin* [Lipitor 40 MG*] 40 mg PO 1700 #30 tab 02/21/19 06/07/19 Rx Clopidogrel TAB* [Plavix TAB*] 75 mg PO DAILY #30 tab 02/21/19 06/07/19 Rx Insulin GLARGINE(*) [Lantus 100 14 units SUBCUT BID #1 vial 06/07/19 Rx units/ml 10 ml VIAL (*)] Insulin REGULAR(*) [Insulin 8 units SUBCUT AC #1 vial 06/07/19 Rx REGULAR 100 units/ml 3 ml VIAL (*)] Negative: Fever Negative: Other - changes in vision Negative: Cough Positive: Weakness - right upper and lower extremities, Numbness - right arm, right lateral leg. Negative: Headache, Slurred Speech All Other Systems Reviewed And Are Negative: Yes Physical Exam - Summary Physical Exam Summary: General: Well-developed, Well-nourished male. No acute distress. HEENT: Normocephalic, Atraumatic. Eyes: Conjuctiva normal, PERRL. Oropharynx: Clear, mucous membranes moist, (-) exudates. Neck: Soft, FROM, (-) lymphadenopathy, (-) thyromegaly, (-) JVD. Cardiovascular: Normal sinus rhythm, (-) murmur. Lungs: Clear to auscultation bilaterally (-) wheezes, (-) rales, (-) rhonchi. Abdomen: Soft, non-tender, non-distended, (-) organomegaly, normal bowel sounds. Back: (-) CVA tenderness Extremities: No edema. Skin: Warm, dry, (-) rash. Neuro: Alert and oriented x3, demonstrates weakness in the right leg. No ataxia. No gait disturbance. No sensory deficit. Normal strength, normal sensation. Normal speech. GCS: 15. Psychiatric: Mood normal, affect normal. Triage Information Reviewed: Yes Vital Signs On Initial Exam: Initial Vitals Temp Pulse Resp BP Pulse Ox 98.2 F 72 16 137/86 98 08/17/19 17:36 08/17/19 17:36 08/17/19 17:36 08/17/19 17:36 08/17/19 17:36 Vital Signs Reviewed: Yes - Deepika Coma Scale Best Eye Response: 4 - Spontaneous Best Motor Response: 6 - Obeys Commands Best Verbal Response: 5 - Oriented Coma Scale Total: 15 Procedures - Sedation Patient Received Moderate/Deep Sedation with Procedure: No Diagnostics - Vital Signs Vital Signs Temp Pulse Resp BP Pulse Ox 08/17/19 19:43 98.6 F 79 16 125/79 97 08/17/19 17:36 98.2 F 72 16 137/86 98 - Laboratory Result Diagrams: 08/17/19 22:39 08/17/19 22:39 Lab Statement: Any lab studies that have been ordered have been reviewed, and results considered in the medical decision making process. - CT Brain CT CT Interpretation Completed By: Radiologist Summary of CT Findings: Impression: No acute intracranial abnormality. This imaging scan was reviewed by Dr. Crow. Head/Neck CTA CT Interpretation Completed By: Radiologist Summary of CT Findings: Head Impression: 1. No hemodynamically significant narrowing of the intracranial arterial circulation. 2. No intracranial aneurysm. 3. No arterial vascular occlusion. This report was reviewed by Dr. Crow. Neck Impression: 1. Calcification of the wall of both right and left carotid bifurcation. No stenosis. No dissection of the internal carotid arteries. No occlusions. 2. The right and left vertebral arteries are patent. This report was reviewed by Dr. Crow. - EKG 2237 Cardiac Rate: NL - 64 BPM EKG Rhythm: Sinus Rhythm Summary of EKG Findings: EKG at 2237 reveals normal sinus rhythm with rate of 64 BPM, no acute changes, no ischemic changes. This EKG was reviewed and interpreted by Dr. Crow. Re-Evaluation - Re-Evaluation First Eval Re-Evaluation Time: 01:00 Comment: Patient aware of plan for admission. He is agreeable with plan. Course/Dx - Course Course Of Treatment: 64-year-old male presents from home with right arm numbness. Also numbness right lateral leg. Bilateral foot numbness. He also feels the right arm and leg are somewhat weak. Patient states he is concerned because he had a stroke one year ago. At that time he had right arm and leg numbness and weakness. He is not on a blood thinner. He denies any chest pain shortness of breath. No known trauma. He states he woke up from his nap about noon today with these symptoms. He does admit that tingling numbness in his feet could be from his peripheral neuropathy. Patient received Aspirin in the ED course. - Diagnoses Provider Diagnoses: TIA (transient ischemic attack) - Physician Notifications Discussed Care Of Patient With: Guerrero Díaz - hospitalist Time Discussed With Above Provider: 01:00 Instructed by Provider To: Other - I discussed the patient's case with Dr. Díaz, who accepts the patient for admission. Discharge ED - Sign-Out/Discharge Documenting (check all that apply): Patient Departure - Patient accepted for admission by Dr. Díaz. - Discharge Plan Condition: Improved Disposition: ADMITTED TO [facility] - Billing Disposition and Condition Condition: IMPROVED Disposition: Admitted to [facility] - Attestation Statements Document Initiated by Magdalena: Yes Documenting Scribe: Desi Hernandez Provider For Whom Magdalena is Documenting (Include Credential): Kasia Crow MD Scribe Attestation: Desi Graham, scribed for Kasia Crow MD on 08/19/19 at 2019. Scribe Documentation Reviewed: Yes Provider Attestation: The documentation as recorded by the Desi brown accurately reflects the service I personally performed and the decisions made by me, Kasia Crow MD Status of Scribe Document: Viewed
[2019-08-17 22:50] LABS: ABS Basophils 0.1 10^3/ul (0-0.2); ABS Eosinophils 0.2 10^3/ul (0-0.6); ABS Lymphocytes 2.1 10^3/ul (1.0-4.8); ABS Monocytes 0.8 10^3/ul (0-0.8); Eosinophil % 3.3 %; Hematocrit 42 % (42-52); Hemoglobin 14.6 g/dL (14.0-18.0); Lymphocyte % 28.5 %; Mean Corpuscular HGB Conc 35 g/dL (31-36); Mean Corpuscular Hemoglobin 32 pg (27-31); Mean Corpuscular Volume 91 fL (80-94); Mean Platelet Volume 8.2 fL (7.4-10.4); Platelet Count 262 10^3/uL (150-450); Red Blood Count 4.57 10^6 /uL (4.18-5.48); Red Cell Distribution Width 14 % (10-15); White Blood Count 7.2 10^3/uL (3.5-10.8)
[2019-08-17 22:55] LABS: INR 1.07 (0.82-1.09)
[2019-08-17 23:06] LABS: ALT 28 U/L (7-52); AST 17 U/L (13-39); Albumin 4.3 g/dL (3.2-5.2); Albumin/Globulin Ratio 1.8 (1-3); Alkaline Phosphatase 120 U/L (34-104); Anion Gap 6 mmol/L (2-11); BUN/Creatinine Ratio 15.8 (8-20); Blood Urea Nitrogen 15 mg/dL (6-24); CO2 Carbon Dioxide 32 mmol/L (22-32); Calcium 9.4 mg/dL (8.6-10.3); Chloride 100 mmol/L (101-111); EGFR African American 97.2 (>60); EGFR Non-African American 80.3 (>60); Globulin 2.4 g/dL (2-4); Glucose 106 mg/dL (70-100); Sodium 138 mmol/L (135-145); Total Protein 6.7 g/dL (6.4-8.9)
[2019-08-17] MEDS ORDERED: Aspirin TAB* 325 MG PO ONE (23:17)
[2019-08-17 23:26] LABS: Alcohol < 10 mg/dL (<10)
[2019-08-17] MEDS ORDERED: Iodixanol* (CONTRAST) 320 MG/ML 100 ML SDV IV ONE (23:29)
[2019-08-17] MEDS ORDERED: Aspirin 81 mg CHEW TAB* 81 MG TAB.CHEW PO ONE (23:42)
[2019-08-18] MEDS ORDERED: Acetaminophen TAB* 325 MG PO PRN (02:30)
[2019-08-18] MEDS ORDERED: LORazepam TAB(*) 1 MG PO PRN (02:46)
[2019-08-18 03:41] LABS: Urine Appearance Clear; Urine Bilirubin Negative (Negative); Urine Blood Negative (Negative); Urine Color Yellow; Urine Glucose Negative (Negative); Urine Ketones Negative (Negative); Urine Nitrite Negative (Negative); Urine Protein Negative (Negative); Urine Specific Gravity 1.045 (1.010-1.030); Urine Urobilinogen Negative (Negative)
[2019-08-18] MEDS ORDERED: Dextrose 50% Syringe 50 ML* 25 GM/50 ML SYRINGE IV PUSH PRN (05:28)
[2019-08-18] MEDS ORDERED: Enoxaparin(*) 40 MG/0.4 ML SYR SUBCUT SCH (06:00)
[2019-08-18 06:28] LABS: HDL Cholesterol 22.9 mg/dL
--- NOTE | 2019-08-18 06:29 | HP ---
ADMISSION HISTORY AND PHYSICAL: DATE OF ADMISSION: 08/18/19 PRIMARY CARE PHYSICIAN: Dr. Choudhury. ADMITTING PHYSICIAN: Dr. Díaz* (dictated by Madisyn Zhu NP). CHIEF COMPLAINT: Numbness in the right side. HISTORY OF PRESENT ILLNESS: Mr. Banuelos is a 63-year-old male with past medical history significant for CVA, hypertension, hypercholesterolemia, diabetes mellitus type 2, neuropathy, who presented to the emergency department today after complaints of increasing numbness to his right upper extremity and lateral right thigh. He states that today at noon he felt in his usual state of health and took a nap. He woke up around 2 p.m. with increasing numbness and tingling to his right upper extremity and right lateral thigh. The patient states that he has been feeling a little bit more weak to his right lower extremity since the day before on 08/16/19. However, the increase in numbness and tingling began today. He states that the numbness and tingling is throughout the right upper extremity sparing the first, second, and third fingers and to the lateral aspect of the right thigh. He denies any noticeable facial droop or slurring of his speech. He states that he believes he is having a harder time with some word finding, which he believes is new for him. He denies any acute visual changes. He states he has had a headache on and off since the day before. He denies any chest pain, shortness of breath, abdominal discomfort, dysuria, unusual swelling. While in the emergency department, the patient did receive aspirin 324 mg. He otherwise is in his usual state of health. Denies any recent fever, chills, cough, sore throat. He does, however , state that he continues to feel this increase in numbness to the right arm and lateral right thigh, although it may or may not be slightly less than he felt around 2 o'clock when he woke up from his nap. The patient is well outside of the window to be a TPA candidate at this time. He did have a brain CT, which showed no acute intracranial abnormality and a head CTA, which showed no hemodynamically significant narrowing of the intracranial arterial circulation, no intracranial aneurysm, no arterial vascular occlusion. [facility] was asked to evaluate the patient for admission to rule out CVA. PAST MEDICAL HISTORY: 1. CVA in January 2019. 2. Chronic back pain. 3. Arthritis. 4. Anxiety. 5. Depression. 6. PTSD. 7. Diabetes mellitus type 2. 8. Hypertension. 9. GERD. 10. Neuropathy of bilateral feet. 11. Hypercholesterolemia. PAST SURGICAL HISTORY: 1. Lumbar surgery. 2. Appendectomy. HOME MEDICATIONS: 1. Insulin regular 10 units subcu a.c. 2. Insulin Lantus 14 units subcu b.i.d. 3. Amlodipine 5 mg p.o. daily. 4. Atorvastatin 40 mg p.o. daily. 5. Tizanidine 2 mg p.o. b.i.d. 6. Metformin 1000 mg p.o. b.i.d. 7. Lorazepam 1 mg p.o. b.i.d. p.r.n. 8. Lisinopril 5 mg p.o. daily. 9. Gabapentin 300 mg p.o. t.i.d. 10. Clopidogrel 75 mg p.o. daily. 11. Citalopram 20 mg p.o. daily. 12. Aspirin 81 mg p.o. daily. ALLERGIES: Wool. No known drug allergies. FAMILY HISTORY: Father with hypertension and alcohol use. Mother with diabetes mellitus. Maternal grandmother with diabetes mellitus. Older sister with diabetes mellitus. SOCIAL HISTORY: The patient states surrogate decision maker for him would be his son Allison Banuelos. He states that he lives alone in an apartment [place] the [place] from the hospital. He has 3 children, but states that they do not visit him. The patient wishes to remain a full code status. He states that he smoked previously, quit in 1984, believes that he smoked approximately 1.5 packs per day for approximately 20 years. This would give him an approximate 30 -pack-year history. REVIEW OF SYSTEMS: A 14-point review of systems was completed with this patient. Please see HPI for all pertinent positives and negatives. PHYSICAL EXAMINATION CONSTITUTIONAL: The patient is lying in bed, appears comfortable, in no acute distress. VITAL SIGNS: Temp 98.6, heart rate 67, respiratory rate 18, O2 sat 95% on room air, blood pressure 128/78. HEENT: PERRL. EOMI. No scleral icterus. Mucous membranes moist. RESPIRATORY: Very mild inspiratory crackles to left lung base. All other lobes clear throughout bilaterally. Normal respiratory effort. CARDIOVASCULAR: Heart rate regular. S1, S2 present. No murmurs, rubs, or gallops noted. GI: Normoactive bowel sounds throughout. Abdomen soft, nontender. No appreciable organomegaly. MUSCULOSKELETAL: Strength and range of motion 4/5 to bilateral upper extremities and left lower extremity. Very limited strength and range of motion to right lower extremity. NEURO: Alert and oriented x3. Cranial nerves grossly intact. Very slight right- sided facial droop at mouth only. The patient is able to follow commands. EOMI. Difficulty with peripheral vision in all quadrants. No upper extremity drift bilaterally. No left lower extremity drift. Right lower extremity has no effort against gravity. No limb ataxia to bilateral upper extremities or left lower extremity; however, is noted to right lower extremity. Sensation normal to face bilaterally, upper extremities bilaterally , slightly less sensation noted to right lateral thigh and right lower extremity below the knee, diminished sensation bilaterally to feet. No notable dysarthria. PSYCH: Responds appropriately. Normal affect, in good spirits. SKIN: Appears dry and intact. DIAGNOSTIC STUDIES AND LAB DATA: CT brain, impression states no acute intracranial abnormality. CTA head, impression states no hemodynamically significant narrowing of the intracranial arterial circulation, no intracranial aneurysm, no arterial vascular occlusion. Electrocardiogram, sinus rhythm with a rate of 64 beats per minute, no significant ST elevations or depressions. Lab data: WBC 7.2, RBC 4.57, hemoglobin 14.6, hematocrit 42, MCV 91, MCH 32, RDW 14, platelet count 262. INR 1.07. Sodium 138, potassium 4.0, chloride 100 , carbon dioxide 32, anion gap 6, BUN 15, creatinine 0.95, estimated GFR 80.3, glucose 106. Lactic acid 0.8. Calcium 9.4. Total bilirubin 0.50, AST 17, ALT 28, alkaline phosphatase 120. Troponin 0.00. Total protein 6.7, albumin 4.3, globulin 2.4. UA showed a specific gravity of 1.045, otherwise unremarkable. Toxicology with serum alcohol less than 10. ASSESSMENT AND PLAN: Mr. Banuelos is a 63-year-old male with past medical history significant for cerebrovascular accident in January 2019, diabetes mellitus type 2, hypertension, hypercholesterolemia, neuropathy of bilateral feet, chronic back pain, who presented to the emergency department today with complaints of increasing numbness and tingling to his right upper extremity and lateral right thigh. 1. Stroke-like symptoms with a history of cerebrovascular accident. CVA vs TIA. Last known well per his report at noon on 08/17/19. If he did in fact have another cerebrovascular accident, he is well out of the window for TPA. He is still complaining of the symptoms that he had on arrival. If this was a transient ischemic attack, his ABCD2 score is 6 points putting him at high risk of subsequent stroke. He is already on dual antiplatelet therapy as well as statin therapy at baseline. Hold lisinopril and amlodipine as BP is currently within normal range and continue to monitor. Neurology consult. MRI brain without contrast ordered. Lipid profile ordered. Hemoglobin A1c ordered. PT/ OT. Speech therapy. Neuro checks. Telemetry monitoring. 2. Hypercholesterolemia. Continue statin. Lipid profile ordered. 3. Hypertension. Again, we will hold his usual lisinopril and amlodipine and continue to monitor his blood pressure at this time while we allow for permissive hypertension. 4. Diabetes mellitus. The patient did have hemoglobin A1c of 11.4 on . His blood glucose was 106 on arrival today. He is on long and short-acting insulins at home as well as metformin. Continue Lantus 14 units b.i.d. Hold metformin and usual a.c. regular insulin dosage. Start lispro sliding scale a.c. Fingersticks a.c. 5. Anxiety. Continue usual Ativan Rx. 6. FEN: Heart healthy diet. 7. Code status: Full code. 8. DVT prophylaxis: Lovenox subcu. 9. Consults: Neurology. TIME SPENT: Approximately 60 minutes was spent on this admission with about half of that being [id number] with the patient for interview, exam, and reviewing plan of care. This case has been reviewed by my attending physician Dr. Díaz, and he agrees with this plan. MADISYN ZHU NP [id number]/CPS #: [id number] ADDENDUM: no lorazepam rx found on iSTOP or through prescriptive hx in Patient [employer]agement [employer] , lorazepam order has been d/c'd. MTDD
[2019-08-18 07:03] LABS: TSH (Thyroid Stimulating Horm) 2.73 mcIU/mL (0.34-5.60)
[2019-08-18] MEDS ORDERED: Insulin LISPRO* 1 UNITS UNIT SUBCUT SCH (07:30)
[2019-08-18] MEDS ORDERED: Insulin GLARGINE(*) 1 UNITS UNIT SUBCUT SCH (09:00)
[2019-08-18] MEDS ORDERED: Aspirin EC TAB* 81 MG TAB.EC PO SCH (09:00)
[2019-08-18] MEDS ORDERED: Gabapentin CAP(*) 300 MG PO SCH (09:00)
[2019-08-18] MEDS ORDERED: Atorvastatin* 40 MG TAB PO SCH (09:00)
[2019-08-18] MEDS ORDERED: Citalopram TAB* 20 MG PO SCH (09:00)
[2019-08-18] MEDS ORDERED: Clopidogrel TAB* 75 MG PO SCH (09:00)
[2019-08-18 12:37] VITALS: BP 126/75
--- NOTE | 2019-08-18 12:38 | CONS ---
NEUROLOGY CONSULTATION: DATE OF CONSULT: 08/18/19 LOCATION: He is an inpatient in room 446. CHIEF COMPLAINT: Increased right leg numbness. HISTORY OF PRESENT ILLNESS: Jack Banuelos is a 63-year-old right-handed man known to me from prior evaluation in January of 2019 when he presented with right-sided numbness. 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 He was discharged on dual antiplatelet therapy with aspirin 81 mg and Plavix 75 mg. He was in his usual state of health yesterday morning when he woke up and felt like his right leg was more numb than it had been. With specific question, he says it is not in any new area but just felt more numb than previously. He was concerned he was having another stroke and so presented to the emergency room and was admitted. His dual antiplatelet therapy was changed to aspirin monotherapy 81 mg this past May in the residence clinic by Dr. Choudhury. I reviewed the office note. Since yesterday, he feels that the right leg is perhaps a little bit more numb than it usually is but he is not sure. He has not noticed any numbness in his face. He denies numbness in his upper extremities. He says his right leg has been somewhat clumsy and weak since his stroke but it is not clearly any worse. He has no new back pain. He has difficulty with word finding but that goes back also even before his stroke. He has no other symptoms to note. PAST MEDICAL HISTORY: Notable for poorly-controlled diabetes, hypertension, posttraumatic stress disorder, depression, anxiety, gastroesophageal reflux, diabetic neuropathy, prior lumbar surgery, appendectomy, the left thalamic stroke as mentioned in the history of present illness. MEDICATIONS AT HOME: Consists of: 1. Insulin. 2. Amlodipine 5 mg p.o. every day. 3. Atorvastatin 40 mg p.o. every day. 4. Tizanidine 2 mg p.o. b.i.d. p.r.n. back pain. 5. Metformin 1000 mg p.o. b.i.d. 6. Lisinopril 5 mg p.o. every day. 7. Gabapentin 300 mg p.o. t.i.d. 8. Aspirin 81 mg p.o. every day. 9. Citalopram 20 mg p.o. every day. ALLERGIES: He does not have any drug allergies. SOCIAL HISTORY: He is an ex-cigarette smoker. He does not drink alcohol. He lives in the apartment complex [place] the [place] from the hospital. REVIEW OF SYSTEMS: Negative for headaches, recent falls, fevers, or chills. He has not had any intestinal problems lately. His weight has been stable. His chronic back pain is unchanged. He does not know what his blood sugars are doing at home and he does not check them. PHYSICAL EXAM: He is well nourished and well hydrated. He has been afebrile throughout his hospital stay. His blood pressure is running between 130 to 140 systolic/70 to 80 diastolic. His heart rate is about 70, and respiratory rate is 20. Oxygen saturations are 100% on room air. Heart tones are normal. There are no cervical bruits. Lungs are clear. Oral mucosa is moist and atraumatic. Straight leg raising is negative bilaterally. Neurological Exam: Pupils react equally from 3 down to 2 mm. Fundi are unremarkable. Eye movements are normal. Visual angela are full to confrontation. Facial musculature is intact and symmetric. Speech is clear. Tongue protrudes in the midline. Sensory exam to light touch and pin is symmetric in both sides of the face. Motor exam reveals mild drift to the right leg. He has normal strength in the left leg and both arms. There is no drift in the upper extremities. Sensory exam is notable for a diminished pin discrimination in the lower extremities to above the ankles. There is absent light touch sensation in the feet to the ankles. Pin discrimination is normal in the thighs bilaterally. Light touch and pin discrimination is normal in the upper extremities. There is no rest tremor. Pbpqtu-[id number]-[id number] maneuver is normal bilaterally. Heel-to- gage maneuver is normal on the left but limited on the right due to weakness and perhaps restricted mobility about the hip. I did not test his gait. He is alert and oriented to person, place, and time. Memory is relatively preserved and language is fluent. DIAGNOSTIC STUDIES/LAB DATA: Brain MRI scan, which reveals several old punctuate small vessel infarctions but no acute infarctions. I reviewed the images and I agree. CT angiogram of the head and neck did not reveal any significant intracranial or extracranial stenosis. Other laboratory data is notable for normal CBC on admission, serum alcohol less than 10. Urinalysis notable for elevated specific gravity at 1.045 but otherwise a normal urinalysis. Chemistry is notable for glucose of 106 yesterday when he was admitted and point of care glucose today is 138. Hemoglobin A1c is pending. Cholesterol this morning is 71 and LDL is just 16. The rest of the chemistry profile is unremarkable. CBC is normal. IMPRESSION: Increased intensity of sensory abnormalities in the right leg, but no evidence of a new cerebral infarction. I think it is prudent to put him back on dual antiplatelet therapy for 30 days with aspirin 81 mg and Plavix 75 mg, and after 30 days switching to Plavix monotherapy. I could see him in my office in approximately 1 month to make sure his vascular risk factors are being addressed but he is on platelet monotherapy. I have discussed the case with Dr. Pedro and also discussed with the patient that his MRI is negative and the recommendations regarding medical therapy. [id number]/[facility] #: [id number] MTDD
--- NOTE | 2019-08-18 23:13 | DS ---
CC: Dr. Ritu Choudhury; Dr. Calvin Colorado * DISCHARGE SUMMARY: DATE OF ADMISSION: 08/18/19 DATE OF DISCHARGE: 08/18/19 PRIMARY CARE PROVIDER: Dr. Ritu Choudhury. NEUROLOGIST: Dr. Calvin Colorado. PRIMARY DIAGNOSIS: Possible recurrence of cerebrovascular accident. SECONDARY DIAGNOSES: 1. Diabetes mellitus type 2, on insulin, complicated by neuropathy. 2. Hypertension. 3. Anxiety and depression. 4. PTSD. 5. Chronic back pain. CONSULTATIONS: Dr. Calvin Colorado of Neurology. DISCHARGE MEDICATIONS: 1. Aspirin 81 mg daily for 30 more days. 2. Clopidogrel 75 mg daily indefinitely. 3. Regular insulin 10 units in the morning. 4. Insulin glargine 14 units twice a day. 5. Atorvastatin 40 mg daily. 6. Metformin 1000 mg twice a day. 7. Lisinopril 5 mg daily. 8. Gabapentin 300 mg t.i.d. 9. Citalopram 20 mg daily. HISTORY OF PRESENT ILLNESS: Mr. Banuelos is a 63-year-old man with past medical history for CVA several months ago, hypertension, diabetes type 2, on insulin, complicated by peripheral neuropathy, who presented to the emergency department after experiencing increased numbness to his right upper extremity and lateral right thigh. He reports that at noon on the day prior to his presentation he felt as though he was in his usual state of health and took a nap. He woke up around 2 p.m. with increasing numbness and tingling to his right upper extremity and right lateral thigh. This was his presenting symptom for his prior CVA late last year. He states that he had been feeling a little bit more weak over his right lower extremity for the last 2 days, but the increasing numbness and tingling did not stop until a few hours prior to presentation. He denies slurred speech or facial droop. He thinks he is having a harder time with some word finding, which is new for him. He denies visual changes, chest pain, shortness of breath, abdominal discomfort, dysuria, or edema. HOSPITAL COURSE: In the emergency department, the patient was loaded with aspirin. A brain CT was performed, which showed no acute intracranial abnormality and head CTA showed no hemodynamically significant narrowing of the intracranial arterial circulation without aneurysm or vascular occlusion. Hospitalist Medicine was asked to evaluate the patient for admission and neurology consultation. It was noted that the patient did complete dual antiplatelet therapy and then was continued on aspirin monotherapy for the last few months. He was continued on aspirin as well as a statin. Later on his day of admission, he underwent a brain MRI which showed no restricted diffusion to suggest acute infarct with scattered nonspecific white matter changes suggestive of chronic small vessel ischemic change and disproportion volume loss of the right mesiotemporal lobe. The patient was also seen and evaluated by Dr. Colorado of Neurology, who saw him for his prior stroke as well as an outpatient. While there was no evidence of new cerebral infarction on imaging, it was thought to be prudent to put the patient back on dual antiplatelet therapy for 30 days, but then to only continue Plavix monotherapy after this time as this could be considered an aspirin failure. The patient was eager to return home. By the time of discharge, he was suffering no new focal neurologic deficit. PHYSICAL EXAMINATION: Afebrile, heart rate 74, blood pressure 126/75, respiratory rate is 20, oxygen saturation is 99% on room air. General: He is well appearing, alert, pleasant, and in no acute distress. He is alert and interactive, answers all questions appropriately. HEENT: With moist mucous membranes. OP clear. Neck: Supple. No JVD. Heart: Regular rate and rhythm. No murmurs, gallops, or rubs. Lungs: Clear to auscultation bilaterally. Abdomen: Soft, nontender, nondistended. Neurologic Exam: Speech is clear. CN II through XII intact. Extremities with equal strength in both upper and lower extremities. Decreased sensation over right arm and lateral right thigh compared to the left. PERTINENT DIAGNOSTIC STUDIES: CBC, CMP, coagulation, and UA unremarkable. LDL 16 with triglycerides 160 and HDL 22. TSH 2.73. Hemoglobin A1c 7.1. Brain CT: Without acute intracranial abnormality. Brain MRI: Without restricted diffusion to suggest acute infarct. Scattered nonspecific white matter changes suggestive of chronic small vessel ischemic disease. Disproportion volume loss of the right mesiotemporal lobe. Head CTA: With no hemodynamically significant narrowing of the intracranial arterial circulation. No intracranial aneurysm. No arterial vascular occlusion. DISCHARGE PLAN: The patient will be discharged, follow up with his primary care physician as well as Dr. Colorado of Neurology for possible recurrence of small stroke and ongoing optimization of his cerebrovascular risk factors. The only other changes to the patient's home medications were the discontinuation of amlodipine as his pressures were at goal during admission while this blood pressure medication was held and the patient reports that he was experiencing lightheadedness occasionally. He was educated to continue to check his blood pressures at home and bring a log of it to his primary care physician. The patient was given return precautions, which include, but not limited to, recurrence of focal neuro symptoms or new symptoms of chest pain, shortness of breath, fevers, or chills. DIET: Healthy diet low in carbohydrate and sugars for blood glucose control. ACTIVITY: As tolerated. DISPOSITION: Home. CONDITION: Improved. TIME SPENT: Approximately 60 minutes was spent on discharge of this patient, more than half of which was spent on care coordination at bedside, interview and exam. [id number]/[facility] #: [id number] LONA
== END 2019-08-18 15:40 | disposition home or self-care (01) ==
LOC: ED 17:28 → MEDTELE 08-18 02:30
PROVIDERS: ADMIT Nurse Practitioner Family; ATTEND Internal Medicine
DX: R20.0 Anesthesia of skin (principal); R53.1 Weakness; M54.9 Dorsalgia, unspecified; G89.29 Other chronic pain; F41.9 Anxiety disorder, unspecified; E78.00 Pure hypercholesterolemia, unspecified; F32.9 Major depressive disorder, single episode, unspecified; E11.9 Type 2 diabetes mellitus without complications; I10 Essential (primary) hypertension; F43.10 Post-traumatic stress disorder, unspecified; K21.9 Gastro-esophageal reflux disease without esophagitis; Z79.4 Long term (current) use of insulin; Z79.82 Long term (current) use of aspirin; Z79.899 Other long term (current) drug therapy; Z79.84 Long term (current) use of oral hypoglycemic drugs; Z86.73 Personal history of transient ischemic attack (TIA), and cerebral infarction without residual deficits
CPT/HCPCS: 36415; 70450; 70496; 70498; 70551; 80053; 80061; 80320; 81003; 82947; 83036; 83605; 84443; 84484; 85025; 85610; 93005; 96372; 99283; A9270-GY; G0378; G0480; J1650; Q9967

== ENCOUNTER 2024-01-06 09:56 | Inpatient (IN) ==
[2024-01-06 11:20] LABS: Hematocrit 36.5 % (38-53); Hemoglobin 12.3 g/dL (13.2-16.3); Mean Corpuscular Hemoglobin 31.4 pg (27-33); Mean Corpuscular Hgb Conc 33.7 g/dL (31-36); Mean Corpuscular Volume 93.1 fL (80-97); Red Blood Count 3.92 10^6/uL (4.06-5.63); White Blood Count 19.1 10^3/uL (3.6-10.2)
[2024-01-06 11:49] LABS: ALT 33 U/L (7-52); Albumin 3.6 g/dL (3.2-5.2); Albumin/Globulin Ratio 1.2 (1-3); Alkaline Phosphatase 136 U/L (35-149); Anion Gap 15 mmol/L (2-16); Blood Urea Nitrogen 20 mg/dL (6-24); C Reactive Protein 295.26 mg/L (<8.01); CO2 Carbon Dioxide 22 mmol/L (22-32); Calcium 8.6 mg/dL (8.6-10.3); Chloride 91 mmol/L (101-111); Creatinine, Serum 1.08 mg/dL (0.67-1.17); Globulin 3.1 g/dL (2-4); Glucose 243 mg/dL (70-100); Sodium 128 mmol/L (135-145); Total Bilirubin 1.7 mg/dL (0.2-1.0); Total Protein 6.7 g/dL (6.4-8.9); eGFR CKD-EPI 75.2 (>60)
[2024-01-06 12:19] LABS: ABS Lymphocytes 0.6 10^3/uL (1.0-4.8); ABS Monocytes 1.5 10^3/uL (0.0-1.1); ABS Neutrophils 16.9 10^3/uL (1.5-7.6); Lymphocyte % 3.3 %; Mean Platelet Volume 8.2 fL (7.5-11.2); Platelet Count 446 10^3/uL (150-450)
[2024-01-06] MEDS: Vancomycin 1,500 MG in NS 0.9% 250 ml 250 ML IVPB ONE (13:42)
[2024-01-06] MEDS: Cefepime 2 GM in Dextrose 2 GM/50 ML BAG IV ONE (13:42)
[2024-01-06] MEDS ORDERED: Zosyn per Pharmacy NOTE FOLLOW UP SCH (14:00)
[2024-01-06] MEDS ORDERED: Vancomycin per Pharmacy 1 EA NOTE FOLLOW UP SCH (14:00)
[2024-01-06] MEDS ORDERED: Dextrose 50% Syringe 50 ml 25 GM/50 ML SYRINGE IV PUSH PRN (14:13)
[2024-01-06 14:57] LABS: Potassium Redraw 4.8 mmol/L (3.5-5.0)
[2024-01-06] MEDS: NS 0.9% 1000 ml BAG 2,000 ML IV ONE (15:05)
[2024-01-06] MEDS: Enoxaparin 40 MG/0.4 ML SYR SUBCUT SCH (15:05)
[2024-01-06] MEDS ORDERED: Vancomycin 1,250 MG in NS 0.9% 250 ml 250 ML IVPB ONE (15:30)
[2024-01-06] MEDS: Piperacillin/Tazobac 3.375 BAG 3.375 GM/100 ML BAG IV ONE (20:51)
[2024-01-06] MEDS: Insulin GLARGINE 100 un/ml 10 ml VIAL SUBCUT SCH (23:58)
[2024-01-07] MEDS ORDERED: Vancomycin 1000 MG in NS 0.9% 250 ML IVPB SCH
[2024-01-07] MEDS: ZOSYN 3.375 GM Q8H per EXTENDED INFUSION IV SCH ×2 (01:34→01:56)
[2024-01-07] MEDS: Vancomycin 1000 MG in NS 0.9% 250 ML IVPB SCH (02:09)
[2024-01-07 05:33] LABS: ABS Lymphocytes 0.4 10^3/uL (1.0-4.8); ABS Monocytes 0.8 10^3/uL (0.0-1.1); ABS Neutrophils 8.2 10^3/uL (1.5-7.6); Eosinophil % 0.1 %; Hematocrit 32.5 % (38-53); Hemoglobin 11.2 g/dL (13.2-16.3); Lymphocyte % 3.9 %; Mean Corpuscular Hemoglobin 31.5 pg (27-33); Mean Corpuscular Hgb Conc 34.6 g/dL (31-36); Mean Platelet Volume 7.8 fL (7.5-11.2); Platelet Count 339 10^3/uL (150-450); Red Blood Count 3.57 10^6/uL (4.06-5.63); Red Cell Distribution Width 12.3 % (12-17); White Blood Count 9.4 10^3/uL (3.6-10.2)
[2024-01-07 05:51] LABS: Calcium 8.1 mg/dL (8.6-10.3); Creatinine, Serum 0.95 mg/dL (0.67-1.17); Potassium 4.4 mmol/L (3.5-5.0); eGFR CKD-EPI 87.7 (>60)
[2024-01-07] MEDS ORDERED: Aspirin EC 81 mg TAB.EC (enteric coated) PO SCH (09:00)
[2024-01-07 13:44] LABS: Urine Appearance Clear; Urine Bacteria Absent /HPF (Absent); Urine Bilirubin Negative (Negative); Urine Blood Trace (Negative); Urine Color Yellow; Urine Glucose 3+ (>=300 mg/dL) (Negative); Urine Ketones 1+ (Negative); Urine Nitrite Negative (Negative); Urine Protein 1+ (>=30 mg/dL) (Negative); Urine Red Blood Cell Trace(0-2/hpf) /HPF (0-Trace); Urine Specific Gravity 1.024 (1.002-1.030); Urine Squamous Epithelial Cell Present /HPF (Absent); Urine Urobilinogen 3+ (Negative); Urine White Blood Cell Trace(0-5/hpf) /HPF (0-Trace)
[2024-01-07 15:52] LABS: C Reactive Protein 275.76 mg/L (<8.01)
[2024-01-07] MEDS: Insulin GLARGINE 100 un/ml 10 ml VIAL SUBCUT SCH (21:18)
[2024-01-08] MEDS: ZOSYN 3.375 GM Q8H per EXTENDED INFUSION IV SCH (03:47)
[2024-01-08 13:37] LABS: ABS Basophils 0.1 10^3/uL (0.0-0.1); ABS Lymphocytes 0.6 10^3/uL (1.0-4.8); ABS Monocytes 0.9 10^3/uL (0.0-1.1); ABS Neutrophils 7.9 10^3/uL (1.5-7.6); Eosinophil % 0.5 %; Hematocrit 30.9 % (38-53); Mean Corpuscular Hemoglobin 32.5 pg (27-33); Mean Corpuscular Hgb Conc 35.6 g/dL (31-36); Mean Corpuscular Volume 91.1 fL (80-97); Platelet Count 300 10^3/uL (150-450); Red Blood Count 3.39 10^6/uL (4.06-5.63); White Blood Count 9.5 10^3/uL (3.6-10.2)
[2024-01-08] MEDS: Vancomycin Trough Check NOTE FOLLOW UP ONE (16:01)
[2024-01-08] MEDS: Vancomycin 1,250 MG in NS 0.9% 250 ml 250 ML IVPB SCH (16:05)
[2024-01-08] MEDS: Insulin GLARGINE 100 un/ml 10 ml VIAL SUBCUT SCH (21:39)
[2024-01-09 06:18] LABS: ABS Eosinophils 0.1 10^3/uL (0.0-0.5); ABS Lymphocytes 0.6 10^3/uL (1.0-4.8); ABS Monocytes 0.9 10^3/uL (0.0-1.1); ABS Neutrophils 7.2 10^3/uL (1.5-7.6); Eosinophil % 0.7 %; Hematocrit 30.4 % (38-53); Hemoglobin 10.9 g/dL (13.2-16.3); Lymphocyte % 7.3 %; Mean Corpuscular Hemoglobin 32.5 pg (27-33); Mean Corpuscular Hgb Conc 35.9 g/dL (31-36); Mean Corpuscular Volume 90.4 fL (80-97); Platelet Count 298 10^3/uL (150-450); Red Blood Count 3.36 10^6/uL (4.06-5.63); Red Cell Distribution Width 12.5 % (12-17); White Blood Count 8.8 10^3/uL (3.6-10.2)
[2024-01-09 06:37] LABS: C Reactive Protein 206.91 mg/L (<8.01); Calcium 7.8 mg/dL (8.6-10.3); Creatinine, Serum 0.8 mg/dL (0.67-1.17); Potassium 3.7 mmol/L (3.5-5.0)
[2024-01-09] MEDS: ZOSYN 3.375 GM x ONE DOSE over 30 miuntes IV (21:52)
[2024-01-10] MEDS: ZOSYN 3.375 GM Q8H per EXTENDED INFUSION IV SCH (02:30)
[2024-01-10] MEDS ORDERED: Vancomycin Trough Check NOTE FOLLOW UP ONE (14:30)
[2024-01-11] MEDS: Ondansetron 4 mg VIAL 2 MG/ML 2 ml VIAL IV PRN (15:37)
[2024-01-14] MEDS: cefTRIAXone 2 gm/50 mL D5W 2 GM/50 ML BAG IV SCH (08:25)
[2024-01-14 09:19] LABS: Rapid COVID-19 Molecular Undetected (Undetected)
[2024-01-14 14:14] VITALS: BP 120/68
== END 2024-01-14 17:55 | DRG 871 ==
LOC: EDHOLD 09:56 → ED 09:56 → MEDTELE 01-07 07:42 → SUATTDRO 01-07 09:00
PROVIDERS: ADMIT Internal Medicine; ATTEND Internal Medicine